=== PATIENT | male | born 1990 | race African-American/Black ===

== ENCOUNTER 2016-09-23 08:31 | Inpatient (IN) | payer MEDICAID ==
[~2016-09-23] VITALS: Ht 182.9 cm; Wt 80.2 kg
[2016-09-23] MEDS ORDERED: NS 500 ML IV ONE (10:30)
[2016-09-23] MEDS ORDERED: IPRATROPIUM 0.5MG/ALBUTEROL 2.5MG INH SOL UD 3ML (DUONEB)(J7620) NEB ONE (10:30)
[2016-09-23] MEDS ORDERED: ASPIRIN 81 MG CHEW TABLET PO ONE (10:30)
[2016-09-23] MEDS ORDERED: methylPREDNISolone INJ 125 MG/2 ML VIAL (J2930) IV ONE (10:30)
[2016-09-23 10:51] LABS: ALBUMIN 1.9 GM/DL (3.2-5.2); ALBUMIN/GLOBULIN RATIO 0.24 (1.00-1.93); ALKALINE PHOSPHATASE 120 U/L (45-117); ALT/SGPT 13 U/L (12-78); ANION GAP 10 MEQ/L (8-16); AST/SGOT 14 U/L (15-37); BILIRUBIN,DIRECT 0.1 MG/DL (0.0-0.2); BILIRUBIN,TOTAL 0.3 MG/DL (0.2-1.0); BLOOD UREA NITROGEN 8 MG/DL (7-18); CARBON DIOXIDE LEVEL 27 MEQ/L (21-32); CHLORIDE LEVEL 89 MEQ/L (98-107); CREATININE FOR GFR 1.11 MG/DL (0.70-1.30); GLOMERULAR FILTRATION RATE > 60.0 (>60); POTASSIUM SERUM 4.2 MEQ/L (3.5-5.1); SODIUM LEVEL 126 MEQ/L (136-145); TOTAL PROTEIN 9.7 GM/DL (6.4-8.2)
--- NOTE | 2016-09-23 10:51 | REP ---
Clinical: Dyspnea and cough. Comparison: 06/15/2016. Findings: Dextrocardia again noted. Left lower lobe infiltrate suggested along with possible early right lower lobe atelectasis. No definite effusion. No pneumothorax. Skeletal structures intact. Impression: Dextrocardia Suspected left lower lobe infiltrate and possible early right atelectasis. Signed by Shar Mckenna MD 09/23/2016 10:43 A
[2016-09-23 10:54] LABS: GLUCOSE, FASTING 469 MG/DL (70-105)
[2016-09-23 10:56] LABS: MEAN CORPUSCULAR HGB CONC 32.1 g/dl (32.0-36.5); MEAN CORPUSCULAR VOLUME 90.4 fl (80.0-96.0); PLATELET COUNT, AUTOMATED 432 k/mm3 (150-450); RED CELL DISTRIBUTION WIDTH 12.9 % (11.5-14.5); WHITE BLOOD COUNT 17.5 K/mm3 (4.0-10.0)
[2016-09-23] MEDS ORDERED: ISOVUE-370 76% 100ML VIAL (Q9967) As Ordered ONE (11:10)
[2016-09-23 11:27] LABS: BANDS 3 % (< 11); EOSINOPHILS 2 % (0-5)
[2016-09-23 11:28] LABS: ANISOCYTOSIS 1+
[2016-09-23] MEDS ORDERED: HumuLIN R (REGULAR) INSULIN (NovoLIN R) **100U/ML** PER UNIT IV ONE (11:45)
[2016-09-23] MEDS ORDERED: NS 1,000 ML IV ONE ×3 (11:45→20:30)
--- NOTE | 2016-09-23 11:46 | REP ---
Clinical: Chest pain and dyspnea. Technique: Axial contrast enhanced images from the thoracic inlet to the upper abdomen using 100 ml Isovue 370 intravenous contrast material with multiplanar re-formations. Findings: The patient demonstrates dextrocardia with situs inversus totalis. No obvious pulmonary embolus is appreciated. The thoracic aorta is without aneurysm or dissection. Heart and pericardium are grossly normal. There is evidence for moderate to large left lower lobe consolidation with air bronchograms and small effusion as well as scattered left middle lobe, right upper lobe and right lower lobe consolidations with significant mediastinal and left hilar adenopathy. Limited evaluation of the upper abdomen demonstrates left-sided liver and right-sided stomach and spleen again consistent with situs inversus totalis. Normal bilateral adrenal glands noted. Impression: 1. Dextrocardia and situs inversus totalis. 2. Multi focal infiltrates with small left pleural effusion and reactive adenopathy as detailed above. Follow-up to resolution recommended. 3. No evidence for pulmonary embolus or thoracic aortic aneurysm/dissection. Signed by Shar Mckenna MD 09/23/2016 11:37 A
[2016-09-23] MEDS ORDERED: ONDANSETRON 4MG/2ML VIAL (J2405) IV PRN (15:45)
[2016-09-23] MEDS ORDERED: IPRATROPIUM 0.5MG/ALBUTEROL 2.5MG INH SOL UD 3ML (DUONEB)(J7620) NEB PRN (15:45)
[2016-09-23] MEDS ORDERED: GLUCOSE 4 GM CHEW TABLET PO PRN (15:45)
[2016-09-23] MEDS ORDERED: GLUCAGON FOR INJ 1 MG VIAL (J1610) SC PRN (15:45)
[2016-09-23] MEDS ORDERED: DEXTROSE 50% 50 ML SYRINGE IV PRN (15:45)
[2016-09-23] MEDS ORDERED: ACETAMINOPHEN TAB 650MG DOSE (2X325MG) PO PRN (15:45)
[2016-09-23] MEDS ORDERED: NS 1,000 ML IV SCH (16:00)
--- NOTE | 2016-09-23 16:22 | HPEPDOC ---
General Date of Admission Sep 23, 2016 at 15:36 Chief Complaint The patient is a 26-year-old male admitted with a reason for visit of Shortness Of Breath. History of Present Illness 26-year-old male with past medical history of asthma, Type II diabetes mellitus currently off all medication, dextrocardia, and situs inversus totalis presented to ER with a chief complaint of worsening shortness of breath, and cough productive of yellowish sputum over the last 2 weeks. The patient states that he has not followed up with a primary care physician for the past 2-3 years. However, the patient states that he occasionally gets shortness of breath and coughing like this, most recently back in May 2016 when he was incarcerated in [facility]. At that time, the patient states that he was started on antibiotics and his symptoms improved. At this time, the patient states that he has been taking kxcw-rel-repxivo cough suppressants at home, however his shortness of breath has not improved. She does report a remote history of asthma as a child, but states that he has not used any kind of nebulizer inhaler therapy since. He denies following up with any employee communications manager since he was a child. He denies any acute complaints of fevers, chills, lightheaded, dizziness, palpitations, abdominal pain, or any nausea/vomiting/ diarrhea. In the ER, a CTA of the chest was done which revealed dextrocardia, and situs inversus totalis with multifocal infiltrates with small left pleural effusion and reactive adenopathy noted. The patient received a dose of antibiotics in the ER, and states that he is feeling better. The patient was also noted to have a white blood cell count of 17.5, and an elevated blood sugar level of 400+ . The patient will be admitted under the service of Dr. Alvarado for further evaluation and management. Home Medications No Active Prescriptions or Reported Meds Allergies Coded Allergies: No Known Allergies (Unverified , 09/23/16) Past Medical History Medical History As noted in HPI. Surgical History Surgical pinning of right ankle, and surgical plate placement in the left ankle following trauma. Family History Multiple members of his family with history of diabetes mellitus. Social History * Smoker: other (patient states that he smokes one pack of cigarettes a week for the past 10+ years) Alcohol: Denies Drugs: denies Recent Travel/Sick Contacts: Denies: Recent sick contacts, Recent travel Currently unemployed, able to perform activities of daily living independently. Review of Symptoms Other systems 10 point review of systems negative unless otherwise specified in the HPI. Physical Examination General Exam: Positive: Alert, Cooperative, No Acute Distress ENT Exam: Positive: Atraumatic, Mucous membr. moist/pink Neck Exam: Negative: JVD Chest Exam: Positive: Diminished, Rhonchi, Negative: Rales, Wheezing Heart Exam: Positive: Normal S1, Normal S2, Rate Normal Telemetry: Positive: Sinus Abdomen Exam: Positive: Soft, Negative: Tenderness Extremity Exam: Negative: Swelling, Tenderness Vital Signs As noted in EMR Laboratory Data Labs 24H Laboratory Tests 2 09/23/16 09:22: Aspartate Amino Transf (AST/SGOT) 14L, Alanine Aminotransferase (ALT/SGPT) 13, Alkaline Phosphatase 120H, Total Bilirubin 0.3, Direct Bilirubin 0.1, Albumin 1.9L, Albumin/Globulin Ratio 0.24L, Anion Gap 10, Anisocytosis 1+, Atypical Lymphocytes 1, B-Type Natriuretic Peptide 11.7, Band Neutrophils 3, White Blood Count 17.5H, Red Blood Count 3.91L, Hemoglobin 11.3L, Hematocrit 35.3L, Mean Corpuscular Volume 90.4, Mean Corpuscular Hemoglobin 29.0, Mean Corpuscular Hemoglobin Concent 32.1, Red Cell Distribution Width 12.9, Platelet Count 432, Neutrophils (%) (Auto) , Lymphocytes (%) (Auto) , Monocytes (%) (Auto) , Eosinophils (%) (Auto) , Basophils (%) (Auto) , Neutrophils # (Auto) , Lymphocytes # (Auto) , Monocytes # (Auto) , Eosinophils # (Auto) , Basophils # ( Auto) , Calcium Level 9.0, Eosinophils (Manual) 2, Glomerular Filtration Rate > 60.0, Large Unclassified Cells # , Large Unclassified Cells % , Lymphocytes ( Manual) 12L, Monocytes (Manual) 4, Neutrophils 78H, Platelet Estimate NORMAL, Total Protein 9.7H 09/23/16 10:35: Lactic Acid Level 0.9 09/23/16 12:49: Bedside Glucose (Misc Panel) 386H 09/23/16 14:19: Bedside Glucose (Misc Panel) 378H CBC/BMP Laboratory Tests 09/23/16 09:22 Red Blood Count 3.91 L, Mean Corpuscular Volume 90.4, Mean Corpuscular Hemoglobin 29.0, Mean Corpuscular Hemoglobin Concent 32.1, Red Cell Distribution Width 12.9, Neutrophils (%) (Auto) , Lymphocytes (%) (Auto) , Monocytes (%) (Auto) , Eosinophils (%) (Auto) , Basophils (%) (Auto) , Neutrophils # (Auto) , Lymphocytes # (Auto) , Monocytes # (Auto) , Eosinophils # (Auto) , Basophils # (Auto) Microbiology Microbiology 09/23/16 Blood Culture, Received Pending 09/23/16 Influenza Virus Type A Antigen - Final, Complete 09/23/16 Influenza Virus Type B Antigen - Final, Complete Plan / VTE VTE Prophylaxis Ordered?: Yes Plan Plan Shortness of breath, productive cough secondary to community acquired pneumonia We will admit the patient to med/surg unit CTA of the chest notable for dextrocardia and situs inversus totalis, with multifocal infiltrates and reactive adenopathy Blood cultures, sputum cultures, and respiratory panel, influenza panel ordered Patient started on Rocephin and azithromycin Albuterol, nebulizer treatment, incentive spirometry, and Acapella ordered Given the patient's underlying history of dextrocardia, situs inversus totalis and recurrent presentation of shortness of breath with productive cough I do wonder whether the patient has underlying primary ciliary dyskinesia leading to the recurrent sequelae. If the patient's symptoms do not resolve with antibiotics as noted above, would consider pulmonary consultation. Otherwise, the patient should follow-up with pulmonary as an outpatient once a PCP is established for him, and have PFT studies done. We will continue to monitor the patient History of diabetes mellitus Patient with elevated level of glucose here, 400+ Did receive Solumedrol 125mg in the ER, which may be contributing to elevated glucose levels Patient states that he he was diagnosed as a type II diabetic at the age of 14 when he weighed nearly 400 pounds However, he subsequently lost a significant amount of weight from the age of 14- 18, and has been off all medication We will check a hemoglobin A1c here Will check C-Peptide levels, Islet Cell Antibodies, and Insulin Antibodies to assess for possible underlying Type 1 DM Insulin sliding scale Leukocytosis Likely secondary to #1 White blood cell count noted to be 17.5 K Patient has been afebrile, hemodynamically stable here Blood cultures, sputum cultures, respiratory panel ordered Empiric coverage with Rocephin and azithromycin Continue to monitor CBC The patient will need to be established with a primary care physician in the area DVT prophylaxis-Lovenox subcutaneous The patient will be admitted under the service of Dr. Alvarado, who will begin to follow the patient on 09/24. KAROLYN DEL CID MD Sep 23, 2016 16:22
[2016-09-23 16:40] LABS: CHOLESTEROL LEVEL 127 MG/DL (<200); TRIGLYCERIDES LEVEL 127 MG/DL (<150)
[2016-09-23] MEDS ORDERED: AZITHROMYCIN INJ 500 MG, VIAL MATE ADAPTER 1 EACH in D5W 250 ML IV SCH (17:00)
[2016-09-23] MEDS ORDERED: HumaLOG INSULIN (NovoLOG) PER UNIT SC SCH ×2 (17:30→21:00)
[2016-09-23 18:00] VITALS: BP 137/84
[2016-09-23] MEDS: IPRATROPIUM 0.5MG/ALBUTEROL 2.5MG INH SOL UD 3ML (DUONEB)(J7620) NEB SCH (19:39)
[2016-09-23] MEDS ORDERED: HumaLOG INSULIN (NovoLOG) PER UNIT SC ONE (20:15)
[2016-09-23] MEDS: cefTRIAXone SOD 1 GM in D5W MINI-BAG PLUS 50 ML IV SCH (20:35)
[2016-09-23] MEDS ORDERED: LEVEMIR (INSULIN DETEMIR) 1 UNITS/0.01ML SC SCH (21:00)
[2016-09-23 22:00] VITALS: BP 127/78
[2016-09-24] MEDS ORDERED: INSULIN HUMAN REGULAR 100 UNITS in NS 99 ML IV SCH ×2
[2016-09-24 00:08] VITALS: BP 125/83
[2016-09-24 00:50] LABS: MEAN CORPUSCULAR HEMOGLOBIN 29.5 pg (27.0-33.0); MEAN CORPUSCULAR VOLUME 89.5 fl (80.0-96.0); RED CELL DISTRIBUTION WIDTH 12.8 % (11.5-14.5); WHITE BLOOD COUNT 13.5 K/mm3 (4.0-10.0)
[2016-09-24 01:04] LABS: ANION GAP 10 MEQ/L (8-16); BLOOD UREA NITROGEN 19 MG/DL (7-18); CALCIUM LEVEL 8.3 MG/DL (8.5-10.1); CARBON DIOXIDE LEVEL 23 MEQ/L (21-32); CHLORIDE LEVEL 93 MEQ/L (98-107); CREATININE FOR GFR 1.11 MG/DL (0.70-1.30); GLOMERULAR FILTRATION RATE > 60.0 (>60); MAGNESIUM LEVEL 2.2 MG/DL (1.8-2.4); POTASSIUM SERUM 4.5 MEQ/L (3.5-5.1); SODIUM LEVEL 126 MEQ/L (136-145)
[2016-09-24 01:06] LABS: GLUCOSE, FASTING 606 MG/DL (70-105)
[2016-09-24] MEDS: INSULIN IV RATE CHANGE DOCUMENTATION ML/HR XX SCH ×5 (01:08→07:01)
[2016-09-24] MEDS: IPRATROPIUM 0.5MG/ALBUTEROL 2.5MG INH SOL UD 3ML (DUONEB)(J7620) NEB SCH ×2 (01:25→07:27)
[2016-09-24] MEDS: NS 1,000 ML IV SCH ×2 (02:38→08:30)
[2016-09-24 04:00] VITALS: BP 131/89
[2016-09-24 04:58] LABS: MEAN CORPUSCULAR HGB CONC 32.8 g/dl (32.0-36.5); MEAN CORPUSCULAR VOLUME 88.4 fl (80.0-96.0); RED CELL DISTRIBUTION WIDTH 12.8 % (11.5-14.5); WHITE BLOOD COUNT 12.7 K/mm3 (4.0-10.0)
[2016-09-24 05:10] LABS: ANION GAP 9 MEQ/L (8-16); BLOOD UREA NITROGEN 17 MG/DL (7-18); CALCIUM LEVEL 7.4 MG/DL (8.5-10.1); CARBON DIOXIDE LEVEL 24 MEQ/L (21-32); CHLORIDE LEVEL 99 MEQ/L (98-107); CREATININE FOR GFR 0.84 MG/DL (0.70-1.30); GLOMERULAR FILTRATION RATE > 60.0 (>60); GLUCOSE, FASTING 368 MG/DL (70-105); MAGNESIUM LEVEL 2.1 MG/DL (1.8-2.4); POTASSIUM SERUM 4.2 MEQ/L (3.5-5.1); SODIUM LEVEL 132 MEQ/L (136-145)
[2016-09-24] MEDS: cefTRIAXone SOD 1 GM in D5W MINI-BAG PLUS 50 ML IV SCH (06:09)
[2016-09-24 08:00] VITALS: BP 127/72
[2016-09-24] MEDS ORDERED: LEVEMIR (INSULIN DETEMIR) 1 UNITS/0.01ML SC ONE (08:00)
[2016-09-24] MEDS: ENOXAPARIN 40 MG/0.4 ML SYRINGE (J1650) SC SCH ×2 (08:23→08:24)
[2016-09-24] MEDS ORDERED: LEVA750T PO (09:07)
[2016-09-24] MEDS ORDERED: INSUDET SC (09:07)
[2016-09-24] MEDS ORDERED: ASPI1TAB PO (09:08)
--- NOTE | 2016-09-24 09:26 | ECGEPIP ---
Stationary ECG Study [facility] - ED Test Date: 2016-09-23 Pat Name: HOLLIS HIGGINS Department: Room: - Gender: M Certified Caregiver: JT : 1990 Requested By: ELROY Drake Order Number: [id number] Reading MD: Corinne Alcantara Measurements Intervals [place] Rate: 109 P: 101 LA: 145 QRS: 173 QRSD: 94 T: 148 QT: 326 QTc: 440 Interpretive Statements SINUS TACHYCARDIA ARM LEADS REVERSED ABNORMAL RHYTHM ECG NO PRIOR FOR COMPARISON Electronically Signed On 09-24-2016 9:25:52 EDT by Corinne Alcantara
[2016-09-24] MEDS ORDERED: LevoFLOXacin 750 MG TABLET PO ONE (10:00)
--- NOTE | 2016-09-24 15:31 | DS.PDOC ---
Discharge Summary General Date of Admission Sep 23, 2016 at 15:36 Date of Discharge Sep 24, 2016 at 11:05 Primary Care Physician: TANIA FLORES DO Attending Physician: ADILENE RIBEIRO MD Discharge Summary PROCEDURES PERFORMED DURING STAY: None ADMITTING DIAGNOSES: 1. Shortness of breath 2. Diabetes mellitus 3. Leukocytosis DISCHARGE DIAGNOSES: 1. Shortness of breath 2. Lung infiltrate 3. Hyperglycemia COMPLICATIONS/CHIEF COMPLAINT: Shortness Of Breath. HISTORY OF PRESENT ILLNESS: Mr. Mead is a 26-year-old -Italian male with past medical history of asthma, Type II diabetes mellitus currently off all medication, dextrocardia, and situs inversus totalis who presented to [facility]'s emergency Department with worsening shortness of breath and cough productive of yellowish sputum over the last 2 weeks. The patient states that he has not followed up with a primary care physician for the past 2-3 years. However, the patient states that he occasionally gets shortness of breath and coughing like this, most recently back in May 2016 when he was incarcerated in [facility]. At that time, the patient states that he was started on antibiotics and his symptoms improved. At this time, the patient states that he has been taking luju-qfl-rqoscyg cough suppressants at home, however his shortness of breath has not improved. He does report a remote history of asthma as a child, but states that he has not used any kind of nebulizer inhaler therapy since. 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 He denies any acute complaints of fevers, chills, lightheaded, dizziness, palpitations, abdominal pain, or any nausea/ vomiting/diarrhea. CT angiogram was performed in the emergency department which revealed dextrocardia and situs inversus totalis with multifocal infiltrates with small left pleural effusion and reactive adenopathy noted. The patient received a dose of antibiotics and steroids in the ED and states that he is feeling better. The patient was also noted to have a white blood cell count of 17.5, and an elevated blood sugar level of 400+. Hospitalist service was subsequently consulted and patient was admitted for further medical management. HOSPITAL COURSE: Patient was admitted to the ICU, and insulin drip was started, antibiotics were continued, and intravenous fluid resuscitation was provided with normal saline at 125 miles per hour. The workup for patient's diabetes included C-peptide levels, insulin antibodies, and islet cell antibodies. Patient also received Levemir 25 units and was subsequently transitioned to Levemir 10 units twice a day. Patient did not have an anion gap acidosis. His blood glucose did improve. Influenza was negative, respiratory panel was negative, sputum culture was positive for gram-positive cocci in pairs. Patient stated that he needed to be discharged secondary to the possibility of inducing housing. Patient was stable and in no acute distress. Patient reports that he is familiar with how to use a glucometer, perform fingersticks, and give himself insulin. Have provided prescriptions for glucometer as well as test strips. Levaquin was provided for patient's pneumonia. Recommended that patient follow-up at the resident clinic. DISCHARGE MEDICATIONS: Please see below. ALLERGIES: Please see below. PHYSICAL EXAMINATION ON DISCHARGE: VITAL SIGNS: Please see below. GENERAL: -Italian male resting comfortably in the hospital bed upon evaluation this morning, appears stated age, in no apparent distress HEENT: Atraumatic, normocephalic, PERRL, EOMI, oral mucosa appears pink and moist, nasal septum appears midline, nares are patent NECK: Supple, soft, trachea midline, no lymphadenopathy appreciated CARDIOVASCULAR EXAMINATION: Dextrocardia, regular rate and rhythm, normal S1 and S2, no murmur, rub, click RESPIRATORY EXAMINATION: Diminished lung sounds and crackles noted on the left, no wheeze ABDOMINAL EXAMINATION: Flat, soft, nontender, nondistended, bowel sounds appreciated all 4 quadrants EXTREMITIES: Peripheral pulses appreciated bilaterally in upper and lower extremities, symmetrical, equal, +2/4, no edema, no lesions or rashes SKIN:, No lesions or rashes NEUROLOGICAL EXAMINATION: Cranial nerves II through XII appear grossly intact, moving all four extremities appropriately PSYCHIATRIC EXAMINATION: Mood and affect appear appropriate LABORATORY DATA: Please see below. IMAGING: Chest x-ray IMPRESSION: Dextrocardia Suspected left lower lobe infiltrate and possible early right atelectasis. CT angiogram of the chest IMPRESSION: 1. Dextrocardia and situs inversus totalis. 2. Multi focal infiltrates with small left pleural effusion and reactive adenopathy as detailed above. Follow-up to resolution recommended. 3. No evidence for pulmonary embolus or thoracic aortic aneurysm/dissection. PROGNOSIS: Stable ACTIVITY: As tolerated DIET: Consistent carbohydrate DISCHARGE PLAN: Managing health at home, improved health and wellness DISPOSITION: 01 Home, Self-Care. DISCHARGE INSTRUCTIONS: 1. Appointment with Dr. Flores on 10/03/2016 at 7:45 AM ITEMS TO FOLLOWUP ON ON OUTPATIENT: 1. Consistent carbohydrate diabetic diet 2. Follow-up appointment with Dr. Flores on 10/03/2016 at 7:45 AM 3. Will need to check for proteinuria 4. Ophthalmology referral to evaluate for retinopathy DISCHARGE CONDITION: Stable TIME SPENT ON DISCHARGE: Greater than 30 minutes. Vital Signs/I&Os Vital Signs Date Time Temp Pulse Resp B/P Pulse Ox O2 Delivery O2 Flow Rate FiO2 09/24/16 08:00 99.1 86 16 127/72 95 Room Air I&O- Last 24 Hours up to 6 AM 09/24/16 06:00 Intake Total 5145 ml Output Total 2575 ml Balance 2570 ml Laboratory Data Labs 24H Laboratory Tests 2 09/23/16 18:50: Bedside Glucose (Misc Panel) 592*H 09/23/16 19:09: Bedside Glucose Confirm (Misc) 653*H 09/23/16 20:31: Bedside Glucose (Misc Panel) > 600*H 09/23/16 22:30: Bedside Glucose (Misc Panel) > 600*H 09/23/16 22:40: Bedside Glucose (Misc Panel) > 600*H 09/23/16 22:46: Bedside Glucose Confirm (Misc) 808*H 09/24/16 00:06: Bedside Glucose (Misc Panel) > 600*H 09/24/16 00:32: Bedside Glucose Confirm (Misc) 606*H, Anion Gap 10, Blood Urea Nitrogen 19#H, Creatinine 1.11, Sodium Level 126L, Potassium Level 4.5, Chloride Level 93L, Carbon Dioxide Level 23, Calcium Level 8.3L, Glomerular Filtration Rate > 60.0, Magnesium Level 2.2 09/24/16 03:09: Bedside Glucose (Misc Panel) 405H 09/24/16 04:10: Bedside Glucose (Misc Panel) 376H, Anion Gap 9, Blood Urea Nitrogen 17, Creatinine 0.84, Sodium Level 132L, Potassium Level 4.2, Chloride Level 99, Carbon Dioxide Level 24, Calcium Level 7.4L, Glomerular Filtration Rate > 60.0, Magnesium Level 2.1 09/24/16 04:11: 09/24/16 06:11: Bedside Glucose (Misc Panel) 276H 09/24/16 06:59: Bedside Glucose (Misc Panel) 268H CBC/BMP Laboratory Tests 09/24/16 00:32 Calcium Level 8.3 L, Red Blood Count 3.54 L, Mean Corpuscular Volume 89.5, Mean Corpuscular Hemoglobin 29.5, Mean Corpuscular Hemoglobin Concent 33.0, Red Cell Distribution Width 12.8 09/24/16 04:10 Calcium Level 7.4 L 09/24/16 04:11 Red Blood Count 3.31 L, Mean Corpuscular Volume 88.4, Mean Corpuscular Hemoglobin 29.0, Mean Corpuscular Hemoglobin Concent 32.8, Red Cell Distribution Width 12.8 FSBS Laboratory Tests Test 09/23/16 18:50 09/23/16 20:31 09/23/16 22:30 09/23/16 22:40 Range/Units Bedside Glucose (Misc Panel) 592 > 600 > 600 > 600 70-105 MG/DL Test 09/24/16 00:06 09/24/16 03:09 09/24/16 04:10 09/24/16 06:11 Range/Units Bedside Glucose (Misc Panel) > 600 405 376 276 70-105 MG/DL Test 09/24/16 06:59 Range/Units Bedside Glucose (Misc Panel) 268 70-105 MG/DL Microbiology Microbiology 09/23/16 Blood Culture, Received Pending 09/23/16 Blood Culture, Received Pending 09/23/16 Gram Stain - Final, Resulted 09/23/16 Sputum Culture, Resulted Pending 09/23/16 Respiratory Virus Panel (PCR) (ALESHA) - Final, Complete 09/23/16 Influenza Virus Type A Antigen - Final, Complete 09/23/16 Influenza Virus Type B Antigen - Final, Complete Discharge Medications Scheduled Aspirin (Aspirin 81) 81 Mg Tab 81 MG PO DAILY Insulin Detemir (Levemir) 1 Units/0.01 Ml Susp 1 UNITS SC QAM 20 units sq qam hold for glucose<150 Levofloxacin Hemihydrate (Levaquin) 750 Mg Tab 750 MG PO DAILY Allergies Coded Allergies: No Known Allergies (Unverified , 09/23/16) AUNDREA BURT Sep 24, 2016 15:31
[2016-09-24] MEDS ORDERED: LEVEMIR (INSULIN DETEMIR) 1 UNITS/0.01ML SC SCH (21:00)
[2016-09-26 00:06] LABS: ISLET CELL ANTIBODIES Negative (Neg:<1:1)
[2016-09-29 00:06] LABS: INSULIN ANTIBODY <5.0 uU/mL (.)
== END 2016-09-24 11:05 | disposition home or self-care (01) | DRG 139 ==
LOC: M ED 10:55 → M ED INP 15:36 → M MSPAV 18:43 → M ICU 23:59
PROVIDERS: ADMIT Internal Medicine; ATTEND General Practice
DX: J18.9 Pneumonia, unspecified organism (principal); E11.65 Type 2 diabetes mellitus with hyperglycemia; J45.909 Unspecified asthma, uncomplicated; F17.210 Nicotine dependence, cigarettes, uncomplicated; Z79.899 Other long term (current) drug therapy

== ENCOUNTER → 2017-01-31 | Outpatient (CLI) | payer MEDICAID ==
[~2017-01-31] MED LIST: ASPI1TAB PO; INSUDET SC; LEVA750T7 PO
== END ==
LOC: M OUTALCOH 07:41
PROVIDERS: ATTEND Psychiatry & Neurology Psychiatry
DX: F12.20 Cannabis dependence, uncomplicated (principal)

== ENCOUNTER → 2017-02-28 | Outpatient (RCR) | payer MEDICAID | LOC: M OUTALCOH 02-07 16:00 | PROVIDERS: ATTEND Psychiatry & Neurology Psychiatry | DX: Z13.9 Encounter for screening, unspecified (principal); F12.20 Cannabis dependence, uncomplicated; F17.200 Nicotine dependence, unspecified, uncomplicated ==

== ENCOUNTER 2018-05-26 05:26 | Emergency (ER) | payer MEDICAID, OTHER ==
[2018-05-26 15:33] LABS: BEDSIDE GLUCOSE 358 MG/DL (70-105)
== END 2018-05-26 06:58 | disposition left against medical advice (07) ==
LOC: M ED 05:26
DX: Z53.29 Procedure and treatment not carried out because of patient's decision for other reasons (principal)

== ENCOUNTER 2018-09-01 14:48 | Emergency (ER) | payer MEDICAID, OTHER ==
[~2018-09-01] VITALS: Ht 182.9 cm; Wt 88.6 kg
[2018-09-01] MEDS ORDERED: HumuLIN R (REGULAR) INSULIN (NovoLIN R) **100U/ML** PER UNIT SC ONE (16:00)
[2018-09-01] MEDS ORDERED: NS 1,000 ML IV ONE ×2 (16:00)
[2018-09-01 16:14] LABS: BASO # 0.1 10^3/uL (0.0-0.2); BASO % 1.1 % (0.0-1.0); EOS # 0.1 10^3/uL (0.0-0.50); HEMATOCRIT 30.3 % (42.0-52.0); HEMOGLOBIN 10.8 g/dl (13.5-17.5); LYMPH # 2.1 10^3/uL (1.5-6.5); LYMPH % 29.5 % (24.0-44.0); MEAN CORPUSCULAR HEMOGLOBIN 31.4 pg (27.0-33.0); MEAN CORPUSCULAR HGB CONC 35.6 g/dl (32.0-36.5); MEAN CORPUSCULAR VOLUME 88.1 fl (80.0-96.0); MONO # 0.4 10^3/uL (0.0-0.8); MONO % 5.7 % (0.0-5.0); NEUTROPHILS # 4.5 10^3/uL (1.8-7.7); NEUTROPHILS % 62.6 % (36.0-66.0); PLATELET COUNT, AUTOMATED 211 10^3/uL (150-450); RED BLOOD COUNT 3.44 10^6/uL (4.30-6.10); WHITE BLOOD COUNT 7.2 10^3/uL (4.0-10.0)
[2018-09-01 16:36] LABS: HEMOGLOBIN A1c 14.1 %
[2018-09-01 16:36] LABS: ABG BASE EXCESS 0.9 (-2.0-2.0); ABG HCO3 25.2 MEQ/L (22.0-26.0); ABG O2 SATURATION 97.5 % (95.0-99.0); ABG PARTIAL PRESSURE CO2 39.2 mmHg (35.0-45.0); ABG PARTIAL PRESSURE O2 105.5 mmHg (75.0-100.0); ABG STANDARD HCO3 25.3 MEQ/L (22.0-26.0); ABG TOTAL CO2 26.4 MEQ/L (22.0-29.0); ABG pH (ARTERIAL) 7.426 UNITS (7.350-7.450)
[2018-09-01 16:46] LABS: AMYLASE 101 U/L (25-115); BLOOD UREA NITROGEN 12 MG/DL (7-18); CALCIUM LEVEL 7.9 MG/DL (8.5-10.1); CARBON DIOXIDE LEVEL 29 MEQ/L (21-32); CHLORIDE LEVEL 103 MEQ/L (98-107); CREATININE FOR GFR 1.45 MG/DL (0.70-1.30); GLOMERULAR FILTRATION RATE > 60.0 (>60); GLUCOSE, FASTING 388 MG/DL (70-100); LIPASE 69 U/L (73-393); POTASSIUM SERUM 3.9 MEQ/L (3.5-5.1); SODIUM LEVEL 139 MEQ/L (136-145)
[2018-09-01 18:12] VITALS: BP 160/101
[2018-09-01] MEDS ORDERED: LANTINJ4 SC (18:13)
[2018-09-01] MEDS ORDERED: METF-700 PO (18:13)
[2018-09-01] MEDS ORDERED: MACR100C43 PO (18:13)
== END 2018-09-01 18:27 | disposition home or self-care (01) ==
LOC: M ED 14:48
DX: E10.65 Type 1 diabetes mellitus with hyperglycemia (principal); N39.0 Urinary tract infection, site not specified; R63.1 Polydipsia; R35.8 Other polyuria; I10 Essential (primary) hypertension; J45.909 Unspecified asthma, uncomplicated; Q89.3 Situs inversus; F17.200 Nicotine dependence, unspecified, uncomplicated

== ENCOUNTER 2019-10-27 10:46 | Inpatient (IN) | payer MEDICAID, OTHER, SELFPAY ==
[~2019-10-27] VITALS: Ht 180.3 cm; Wt 103.6 kg
[~2019-10-27 10:46] MED LIST changes: -ASPI1TAB PO; +ASPI81TA26 PO; +LANTINJ4 SC; +MACR100C43 PO; +METF-700 PO
[2019-10-27] MEDS ORDERED: HUMA100I3 SC (11:00)
[2019-10-27] MEDS ORDERED: NS 1,000 ML IV ONE (11:15)
[2019-10-27 11:29] LABS: VENOUS BASE EXCESS -3.1 (-2.0-2.0); VENOUS HCO3 22.4 MEQ/L (23.0-27.0); VENOUS PARTIAL PRESSURE CO2 41.8 mmHg (38.0-50.0); VENOUS PARTIAL PRESSURE O2 63.1 mmHg (30.0-50.0); VENOUS PH 7.346 UNITS (7.330-7.430); VENOUS STANDARD HCO3 21.7 MEQ/L; VENOUS TOTAL CO2 23.6 MEQ/L (24.0-28.0)
[2019-10-27 11:36] LABS: BASO # 0.1 10^3/uL (0.0-0.2); BASO % 0.8 % (0.0-1.0); EOS # 0.1 10^3/uL (0.0-0.5); EOS % 0.6 % (0.0-3.0); HEMATOCRIT 26.8 % (42.0-52.0); HEMOGLOBIN 9.2 g/dl (13.5-17.5); LYMPH # 1.9 10^3/uL (1.5-5.0); MEAN CORPUSCULAR HEMOGLOBIN 30.2 pg (27.0-33.0); MEAN CORPUSCULAR HGB CONC 34.3 g/dl (32.0-36.5); MEAN CORPUSCULAR VOLUME 87.9 fl (80.0-96.0); MONO # 0.5 10^3/uL (0.0-0.8); MONO % 4.7 % (0.0-5.0); NEUTROPHILS # 7.4 10^3/uL (1.5-8.5); NEUTROPHILS % 74.6 % (36.0-66.0); PLATELET COUNT, AUTOMATED 298 10^3/uL (150-450); RED BLOOD COUNT 3.05 10^6/uL (4.30-6.10); WHITE BLOOD COUNT 9.9 10^3/uL (4.0-10.0)
[2019-10-27 12:01] LABS: OSMOLALITY SERUM 295 MOSM/KG (275-295)
[2019-10-27 12:18] LABS: ACETONE/KETONE 7.61 MG/DL (<2.81); ALBUMIN 2.1 GM/DL (3.2-5.2); ALT/SGPT 13 U/L (12-78); BILIRUBIN,DIRECT < 0.1 MG/DL (0.0-0.2); BILIRUBIN,TOTAL 0.1 MG/DL (0.2-1.0); BLOOD UREA NITROGEN 24 MG/DL (7-18); CALCIUM LEVEL 8.4 MG/DL (8.5-10.1); CARBON DIOXIDE LEVEL 24 MEQ/L (21-32); CHLORIDE LEVEL 97 MEQ/L (98-107); CK-MB VALUE MASS 2.5 NG/ML (<3.6); CPK CREATINE PHOSPHOKINASE 805 U/L (39-308); CREATININE FOR GFR 3.14 MG/DL (0.70-1.30); GLOMERULAR FILTRATION RATE 30.9 (>60); LIPASE 62 U/L (73-393); MB/CK RELATIVE INDEX 0.31 (< OR =4); POTASSIUM SERUM 3.7 MEQ/L (3.5-5.1); SODIUM LEVEL 130 MEQ/L (136-145); TOTAL PROTEIN 6.6 GM/DL (6.4-8.2); TROPONIN I < 0.02 NG/ML (< 0.10)
[2019-10-27 12:19] LABS: GLUCOSE, FASTING 443 MG/DL (70-100)
[2019-10-27] MEDS ORDERED: HumaLOG INSULIN (NovoLOG) PER UNIT SC STA (12:20)
--- NOTE | 2019-10-27 12:29 | REP ---
CHEST, SINGLE VIEW: Single view of the chest is performed. There is no acute infiltrate. The patient has situs inversus. The heart and aortic arch project on the right side of the chest. The liver is in the left upper quadrant. The mediastinal scan is unremarkable. The heart is not enlarged. The visualized osseous structures are unremarkable. IMPRESSION: No acute pulmonary disease. Situs inversus. Electronically Signed by Maurice Tellez MD 10/27/2019 01:04 P
[2019-10-27] MEDS ORDERED: NS 1,860 ML in IV 1 EA IV ONE (12:30)
[2019-10-27 13:21] LABS: HEMOGLOBIN A1c 13.4 %
--- NOTE | 2019-10-27 17:09 | REP ---
Clinical: Acute renal failure. Technique: Real time bowie scale and color Doppler evaluation using curved array transducer. Findings: Right kidney is normal in reniform shape measuring 11.3 x 5.7 x 6.6 cm (RI 0.62) and demonstrates increased echotexture along with mild hydronephrosis. No obvious renal calculi, cyst or mass lesion identified. Left kidney is normal in reniform shape measuring 12.3 x 6.7 x 7.8 cm (RI 0.70) and demonstrates increased echotexture along with mild hydronephrosis. No obvious renal calculi, cyst or mass lesion identified. Bladder appears normal and bilateral ureteral jets are identified. Impression: Increased renal echotexture suggesting underlying medical renal disease along with bilateral mild hydronephrosis. Electronically Signed by Shar Mckenna MD 10/27/2019 05:01 P
[2019-10-27] MEDS ORDERED: GLUCOSE 4GM CHEW TABLET PO PRN (18:00)
[2019-10-27] MEDS ORDERED: GLUCAGON INJ 1MG VIAL SC PRN (18:00)
[2019-10-27] MEDS ORDERED: ALBUTEROL 90 MCG/ACT 8GM HFA INHALER INH PRN (18:00)
[2019-10-27] MEDS ORDERED: DEXTROSE 50% 50 ML SYRINGE IV PRN (18:00)
[2019-10-27] MEDS ORDERED: amLODIPine 10 MG TAB PO ONE (18:15)
--- NOTE | 2019-10-27 18:32 | HPEPDOC ---
[facility] Medical History & Physical Date of Admission Oct 27, 2019 Date of Service: Oct 27, 2019 Attending Physician: JOHNATHON PETE MD History and Physical PRIMARY CARE PROVIDER: None ATTENDING: Dr. Pete CHIEF COMPLAINT: Elevated blood glucose HISTORY OF PRESENT ILLNESS: Patient is a 29 year old male presenting with chief complaint of elevated blood glucose. Patient was brought in by police when he asked to check a blood glucose and it came back in the 500s so EMS was called. He states he has been in his normal state of health and denies any complaints now or in the past couple days. He states at baseline he has poor PO intake having 1 meal a day with a little water, he does not regularly take his insulin and only takes it when he feels like his glucose is high. He uses short acting insulin he obtained on discharge from his incarceration in 2018 and attempts to follow a consistent carb diet at home to avoid taking the insulin. In the ED he was found to have elevated creatinine with unknown baseline, elevated glucose, with renal US showing mild bilateral hydronephrosis. He was given insulin and 3 liters of fluid with repeat creatinine of 2.8 and glucose of 143. PAST MEDICAL HISTORY: T1DM Hypertension Situs inversus suspicious for Kartagener's syndrome PAST SURGICAL HISTORY: Polyp removal bilateral ankle surgery SOCIAL HISTORY: denies alcohol use, 1PPD smoker, admits to daily marijuana use, denies any heroin, cocaine, or PCP use. Unemployed. Lives with girlfriend and child. FAMILY HISTORY: Family history of diabetes. ALLERGIES: Please see below. REVIEW OF SYSTEMS: GENERAL: Denies fevers, chills, recent unexpected weight change, night sweats, hemoptysis HEENT: Denies headache, dizziness, vision changes, hearing loss, sore throat CARDIOVASCULAR: Denies chest pain, palpitations, orthopnea RESPIRATORY: Denies shortness of breath, wheezing, cough GASTROINTESTINAL: denies nausea, vomiting, abdominal pain, constipation, diarrhea, bloody stool GENITOURINARY: Denies dysuria,urinary urgency, hematuria. MUSCULOSKELETAL: Denies muscle/joint pain, weakness, stiffness NEUROLOGICAL: Denies any numbness/tingling, focal weakness, or syncope HOME MEDICATIONS: Please see below. PHYSICAL EXAMINATION: Vitals: (see below) General: No acute distress, laying comfortably in bed. HEENT: Normocephalic, atraumatic. EOMI. No scleral icterus. Moist mucous membranes. No pharyngeal erythema or uvular deviation. Neck: No JVD, lymphadenopathy, or thyromegaly. Cardiac: RRR, Normal S1 and S2, No murmurs, gallops, rubs. Pulm: Clear to auscultation b/l. Symmetric thorax. end expiratory wheezes on exam, crackles, rhonchi Abd: Bowel Sounds present. Abdomen is soft, non-tender, non-distended. No guarding, rebound tenderness, or rigidity. No hepatosplenomegaly. No masses or eccymosis. Ext: No edema or cyanosis Neuro: No focal neuro deficits. LABORATORY DATA: See below. IMAGIN10/27/2019 CXR No acute pulmonary disease. Situs inversus. 10/27/2019 Renal US: Increased renal echotexture suggesting underlying medical renal disease along with bilateral mild hydronephrosis. MICROBIOLOGY: Please see below. ASSESSMENT/PLAN: #. Acute on suspected chronic renal failure - Likely of pre-renal etiology or secondary to diabetic nephropathy vs. hypertensive nephropathy. Will order FeNa, urine osmolarity to assess for intrinsic renal failure. For time being will gently hydrate patient overnight and recheck creatinine in AM. - Post-void residual from bladder scan showing >200ml, will insert colmenares rather than straight cath him Q8H and to monitor I/Os. #. Normocytic anemia -Iron studies, B12, folate #. T1DM -Starting patient on sliding scale insulin -Will await glucose trend until starting levemir. #. Asthma -Albuterol inhaler #. Hyponatremia -Likely 2/2 to poor PO intake #. Hypertension -Starting patient on 10 mg PO Amlodipine with holding parameters. Ok to give hydralazine if uncontrolled hypertension. Hold nephrotoxic agents. -DVT prophy: heparin, teds/seqs Attending attestation: I evaluated and examined the patient in person; I discussed the care with Resident in detail and agree with the plan above. Vital Signs Vital Signs Date Time Temp Pulse Resp B/P (MAP) Pulse Ox O2 Delivery O2 Flow Rate FiO2 10/27/19 16:15 87 17 157/83 (107) 99 Room Air 10/27/19 11:02 97.2 Laboratory Data Labs 24H Laboratory Tests 2 10/27/19 11:04: Bedside Glucose (Misc Panel) 453H 4/28/20 11:20: Immature Granulocyte % (Auto) 0.3, Neutrophils (%) (Auto) 74.6H, Lymphocytes (%) (Auto) 19.0L, Monocytes (%) (Auto) 4.7, Eosinophils (%) (Auto) 0.6, Basophils (%) (Auto) 0.8, Neutrophils # (Auto) 7.4, Lymphocytes # (Auto) 1.9, Monocytes # (Auto) 0.5, Eosinophils # (Auto) 0.1, Basophils # (Auto) 0.1, Nucleated Red Blood Cells % (auto) 0.0, Blood Gas Bicarbonate Standard 21.7, Venous Blood pH 7.346, Venous Blood Partial Pressure CO2 41.8, Venous Blood Partial Pressure O2 63.1H, Venous Blood Total Carbon Dioxide 23.6L, Venous Blood HCO3 22.4L, Venous Blood Oxygen Saturation 89.0H, Venous Blood Base Excess -3.1L, Anion Gap 9, Glomerular Filtration Rate 30.9L, Estimated Mean Plasma Glucose 338H, Hemoglobin A1c 13.4, Osmolality 295, Calcium Level 8.4L, Total Bilirubin 0.1L, Direct Bilirubin < 0.1, Aspartate Amino Transf (AST/SGOT) 20, Alanine Aminotransferase (ALT/SGPT) 13, Alkaline Phosphatase 121H, Total Creatine Kinase 805H, Creatine Kinase MB 2.5, Creatine Kinase MB Relative Index 0.31, Troponin I < 0.02, Total Protein 6.6, Albumin 2.1L, Albumin/Globulin Ratio 0.47L, Lipase 62L, B- Hydroxybutyrate 7.61H 10/27/19 12:20: Urine Color YELLOW, Urine Appearance HAZY, Urine pH 6.0, Urine Specific [place] 1.013, Urine Protein 3+H, Urine Glucose (UA) 3+H, Urine Ketones NEGATIVE, Urine Blood 1+H, Urine Nitrite NEGATIVE, Urine Bilirubin NEGATIVE, Urine Urobilinogen 0.2, Urine Leukocyte Esterase TRACEH, Urine WBC (Auto) 21H, Urine RBC (Auto) 3, Urine Hyaline Casts (Auto) 1, Urine Bacteria (Auto) 1+H, Urine Squamous Epithelial Cells 0, Urine Amorphous Sediment SMALLH, Urine Sperm (Auto) 10/27/19 14:44: Bedside Glucose (Misc Panel) 143H 10/27/19 15:33: POC Glucose (Misc Panel) 105, POC Sodium (Misc Panel) 140, POC Potassium (Misc Panel) 3.4L, POC Chloride (Misc Panel) 105, POC Total CO2 (Misc Panel) 21.0L, POC Blood Urea Nitrogen (Misc Panel 19, POC Ionized Calcium (Misc Panel) 4.8, POC Creatinine (Misc Panel) 2.8H, POC Hematocrit (Misc Panel) 22.0L CBC/BMP Laboratory Tests 10/27/19 11:20 Microbiology Microbiology 10/27/19 Urine Culture, Received Pending Home Medications Scheduled Insulin Lispro (Humalog) 100 Unit/1 Ml Cartridge, 1 DOSE SC ACHS PER SLIDING SCALE Allergies Coded Allergies: SEASONAL ALLERGIES (Verified Allergy, Unknown, 09/01/18) A-FIB/CHADSVASC A-FIB History Current/History of A-Fib/PAF?: No GME ATTESTATION GME ATTESTATION My faculty preceptor for this patient encounter was physically present during the encounter and was fully available. All aspects of the patient interview, examination, medical decision making process, and medical care plan development were reviewed and approved by the faculty preceptor. The faculty preceptor is aware and concurs with the plan as stated in the body of this note and will attest to such by his/her cosignature. DONNA SALDANA DO Oct 27, 2019 18:32 JOHNATHON PETE MD November 03, 2019 19:03
[2019-10-27] MEDS ORDERED: POTASSIUM CHLORIDE 10 MEQ SR TABLET PO ONE (18:45)
[2019-10-27 19:27] LABS: PERCENT SATURATION 27.3 % (19.7-50.0)
[2019-10-27] MEDS: HumaLOG INSULIN (NovoLOG) PER UNIT SC SCH ×2 (19:59→21:24)
[2019-10-27 20:22] LABS: OSMOLALITY URINE 288 MOSM/KG (500-800)
[2019-10-27 20:24] LABS: PROTEIN, URINE AUTO 2+ mg/dL (NEGATIVE)
[2019-10-27 20:43] LABS: CREATININE,RANDOM URINE 59.3 MG/DL; SODIUM,RANDOM URINE 71 MEQ/L
[2019-10-27 20:46] LABS: AMPHETAMINES URINE REFLEX NEGATIVE (NEGATIVE); BARBITURATES URINE REFLEX NEGATIVE (NEGATIVE); BENZODIAZEPINES URINE REFLEX NEGATIVE (NEGATIVE); COCAINE METABOLITE URINE REFLE NEGATIVE (NEGATIVE); METHADONE URINE REFLEX NEGATIVE (NEGATIVE); OPIATES URINE REFLEX NEGATIVE (NEGATIVE); PHENCYCLIDINE URINE REFLEX NEGATIVE (NEGATIVE)
[2019-10-27] MEDS: HEPARIN SOD (PORCINE) 5000UNITS/ML VIAL (J1644 PER 1000UNITS) SC SCH (21:24)
[2019-10-27] MEDS: NS 1,000 ML IV SCH (21:33)
[2019-10-27 21:47] LABS: CANNABINOIDS URINE REFLEX PENDING CONFIRMATION (NEGATIVE)
[2019-10-27 22:00] VITALS: BP 155/102
[2019-10-28] VITALS: BP 162/94
[2019-10-28] MEDS: HEPARIN SOD (PORCINE) 5000UNITS/ML VIAL (J1644 PER 1000UNITS) SC SCH ×3 (05:51→21:28)
[2019-10-28 06:00] VITALS: BP 164/106
[2019-10-28] MEDS ORDERED: **hydrALAZINE** 10 MG TAB PO ONE (06:30)
[2019-10-28 06:54] LABS: HEMATOCRIT 24.6 % (42.0-52.0); HEMOGLOBIN 8.6 g/dl (13.5-17.5); MEAN CORPUSCULAR HEMOGLOBIN 30.6 pg (27.0-33.0); MEAN CORPUSCULAR VOLUME 87.5 fl (80.0-96.0); PLATELET COUNT, AUTOMATED 276 10^3/uL (150-450); RED BLOOD COUNT 2.81 10^6/uL (4.30-6.10); WHITE BLOOD COUNT 10.6 10^3/uL (4.0-10.0)
[2019-10-28 07:39] LABS: CALCIUM LEVEL 8.1 MG/DL (8.5-10.1); CREATININE FOR GFR 2.01 MG/DL (0.70-1.30); GLOMERULAR FILTRATION RATE 51.7 (>60); POTASSIUM SERUM 3.3 MEQ/L (3.5-5.1)
[2019-10-28] MEDS: HumaLOG INSULIN (NovoLOG) PER UNIT SC SCH ×4 (08:24→20:02)
[2019-10-28] MEDS: NS 1,000 ML IV SCH ×3 (08:25→20:01)
[2019-10-28] MEDS: amLODIPine 10 MG TAB PO SCH (08:26)
[2019-10-28] MEDS ORDERED: lisinopriL 5 MG TAB PO ONE ×2 (09:15→18:15)
[2019-10-28 09:25] LABS: MAGNESIUM LEVEL 1.4 MG/DL (1.8-2.4); PHOSPHORUS LEVEL 2.8 MG/DL (2.5-4.9)
[2019-10-28] MEDS ORDERED: POTASSIUM CHLORIDE 10 MEQ SR TABLET PO ONE (10:00)
[2019-10-28] MEDS: FERROUS GLUCONATE 324 MG TAB PO SCH (10:45)
--- NOTE | 2019-10-28 11:33 | IPNPDOC ---
Text Note Date of Service The patient was seen on 10/28/19. NOTE SUBJECTIVE: Patient is a 29-year-old male who presented with chief complaint of elevated blood glucose found to have acute on suspected chronic renal failure and anemia. No acute events overnight. Patient has no complaints this morning he denies any fevers, chills, chest pain, difficulty breathing, abdominal pain, nausea, vomiting. He admits to intermittent bleeding from his gums as he has a history of drinking cough syrup in the past. Denies any family history of bleeding disorders. OBJECTIVE: PHYSICAL EXAM: Vitals: (see below) General: No acute distress, laying comfortably in bed. HEENT: Normocephalic, atraumatic. EOMI. No scleral icterus. Moist mucous membranes. No pharyngeal erythema or uvular deviation. Neck: No JVD, lymphadenopathy, or thyromegaly. Cardiac: RRR, Normal S1 and S2, No murmurs, gallops, rubs. Pulm: Clear to auscultation b/l. Symmetric thorax. No wheezing, crackles, rhonchi Abd: Bowel Sounds present. Abdomen is soft, non-tender, non-distended. No guarding, rebound tenderness, or rigidity. No hepatosplenomegaly. No masses or eccymosis. Ext: No edema or cyanosis Neuro: No focal neuro deficits LABORATORY DATA, MICROBIOLOGY: Please see below. IMAGING STUDIES: ASSESSMENT AND PLAN: #. Acute on suspected chronic renal failure -Creatinine trending down with IVF overnight, FeNa showing intrinsic renal failure as etiology, but will continue fluids for time being as it seems to be helping his creatinine. -Post void residuals are normal this AM, DC bladder scans. #. Normocytic anemia - Iron mildly low, will replete with PO iron - Anemia still not explained by iron deficiency, will obtain peripheral smear, occult blood in stool. #. T1DM -Sliding scale insulin - Will wait and see if patient requires levemir #. Asthma -Albuterol inhaler, not requiring any overnight. #. Hyponatremia -Resolved. #. Hypertension -Starting patient on 10 mg PO Amlodipine with holding parameters. Adding on lisinopril as patient's renal function normalizing. -DVT prophy: heparin, teds/seqs Attending attestation: I evaluated and examined the patient in person; I discussed the care with Resident in detail and agree with the plan above. VS,Megane, I+O VS, Fishbone, I+O Laboratory Tests 10/28/19 06:40 Vital Signs Date Time Temp Pulse Resp B/P (MAP) Pulse Ox O2 Delivery O2 Flow Rate FiO2 10/28/19 08:26 85 168/105 10/28/19 06:00 97.8 19 99 Room Air I&O- Last 24 Hours up to 6 AM 10/28/19 06:00 Intake Total 2770 ml Output Total 1275 ml Balance 1495 ml GME ATTESTATION GME ATTESTATION My faculty preceptor for this patient encounter was physically present during the encounter and was fully available. All aspects of the patient interview, examination, medical decision making process, and medical care plan development were reviewed and approved by the faculty preceptor. The faculty preceptor is aware and concurs with the plan as stated in the body of this note and will attest to such by his/her cosignature. DONNA SALDANA DO Oct 28, 2019 11:33 JOHNATHON PETE MD November 03, 2019 19:09
[2019-10-28] MEDS: MAGNESIUM OXIDE 400 MG TAB (MAG-OX) PO SCH (11:42)
[2019-10-28] MEDS ORDERED: MAG SULF 1GM/100ML (MAG RUN) 1 GM in IV 1 EA IV ONE (12:15)
[2019-10-28 14:00] VITALS: BP 169/107
[2019-10-28] MEDS ORDERED: **hydrALAZINE** 10 MG TAB PO SCH (21:00)
[2019-10-28 22:00] VITALS: BP 160/103
[2019-10-29] VITALS (10 sets, daily range): BP systolic 160–178; BP diastolic 92–115
[2019-10-29] MEDS: **hydrALAZINE** 10 MG TAB PO SCH ×2 (00:20→05:38)
[2019-10-29] MEDS: HEPARIN SOD (PORCINE) 5000UNITS/ML VIAL (J1644 PER 1000UNITS) SC SCH ×3 (05:28→21:24)
[2019-10-29] MEDS: NS 1,000 ML IV SCH (05:28)
[2019-10-29] MEDS: amLODIPine 10 MG TAB PO SCH (05:38)
[2019-10-29 06:09] LABS: HEMATOCRIT 25.5 % (42.0-52.0); HEMOGLOBIN 8.8 g/dl (13.5-17.5); MEAN CORPUSCULAR HEMOGLOBIN 30.8 pg (27.0-33.0); MEAN CORPUSCULAR HGB CONC 34.5 g/dl (32.0-36.5); MEAN CORPUSCULAR VOLUME 89.2 fl (80.0-96.0); PLATELET COUNT, AUTOMATED 304 10^3/uL (150-450); RED BLOOD COUNT 2.86 10^6/uL (4.30-6.10); WHITE BLOOD COUNT 9.8 10^3/uL (4.0-10.0)
[2019-10-29 06:37] LABS: CALCIUM LEVEL 7.7 MG/DL (8.5-10.1); CREATININE FOR GFR 1.91 MG/DL (0.70-1.30); GLOMERULAR FILTRATION RATE 54.8 (>60); MAGNESIUM LEVEL 1.5 MG/DL (1.8-2.4); PHOSPHORUS LEVEL 2.9 MG/DL (2.5-4.9); POTASSIUM SERUM 3.7 MEQ/L (3.5-5.1)
[2019-10-29] MEDS: MAGNESIUM OXIDE 400 MG TAB (MAG-OX) PO SCH (08:49)
[2019-10-29] MEDS: HumaLOG INSULIN (NovoLOG) PER UNIT SC SCH ×4 (08:49→21:00)
[2019-10-29] MEDS: lisinopriL 20 MG TAB PO SCH (08:50)
[2019-10-29] MEDS: FERROUS GLUCONATE 324 MG TAB PO SCH (08:50)
[2019-10-29] MEDS ORDERED: lisinopriL 5 MG TAB PO SCH (09:00)
[2019-10-29] MEDS ORDERED: lisinopriL 20 MG TAB PO SCH (09:00)
[2019-10-29] MEDS: MAG SULF 1GM/100ML (MAG RUN) 1 GM in IV 1 EA IV SCH ×4 (09:51→13:22)
--- NOTE | 2019-10-29 10:48 | IPNPDOC ---
Text Note Date of Service The patient was seen on 10/29/19. VS,Fishbone, I+O VS, Fishbone, I+O Laboratory Tests 10/29/19 05:19 Vital Signs Date Time Temp Pulse Resp B/P (MAP) Pulse Ox O2 Delivery O2 Flow Rate FiO2 10/29/19 08:50 168/114 10/29/19 06:00 99.1 88 15 98 Room Air I&O- Last 24 Hours up to 6 AM 10/29/19 06:00 Intake Total 4480 ml Output Total 2025 ml Balance 2455 ml GME ATTESTATION GME ATTESTATION My faculty preceptor for this patient encounter was physically present during the encounter and was fully available. All aspects of the patient interview, examination, medical decision making process, and medical care plan development were reviewed and approved by the faculty preceptor. The faculty preceptor is a rossi and concurs with the plan as stated in the body of this note and will attest to such by his/her cosignature. DONNA SALDANA DO Oct 29, 2019 10:48
[2019-10-29] MEDS: **hydrALAZINE HCL** 25 MG TAB PO SCH ×2 (13:27→21:24)
[2019-10-29 16:51] LABS: CREATININE,RANDOM URINE 38.6 MG/DL; TOTAL PROTEIN,RANDOM URINE 308.4 MG/DL (0.0-12.0)
--- NOTE | 2019-10-29 17:33 | IPNPDOC ---
Text Note Date of Service The patient was seen on 10/29/19. NOTE SUBJECTIVE: Patient is a 29-year-old male who presented with chief complaint of elevated blood glucose found to have acute on suspected chronic renal failure and anemia. Patient requiring added levels of blood pressure medications overnight, he states this is stress from his difficulties with the legal system and initially wanted to leave AMA, but now that police are here he is comfortable staying as long as we think he needs to stay. Patient has no complaints this morning he denies any fevers, chills, chest pain, difficulty breathing, abdominal pain, nausea, vomiting. OBJECTIVE: PHYSICAL EXAM: Vitals: (see below) General: No acute distress, laying comfortably in bed. HEENT: Normocephalic, atraumatic. EOMI. No scleral icterus. Moist mucous membranes. No pharyngeal erythema or uvular deviation. Neck: No JVD, lymphadenopathy, or thyromegaly. Cardiac: RRR, Normal S1 and S2, No murmurs, gallops, rubs. Pulm: Clear to auscultation b/l. Symmetric thorax. No wheezing, crackles, rhonchi Abd: Bowel Sounds present. Abdomen is soft, non-tender, non-distended. No gua rding, rebound tenderness, or rigidity. No hepatosplenomegaly. No masses or eccymosis. Ext: No edema or cyanosis Neuro: No focal neuro deficits LABORATORY DATA, MICROBIOLOGY: Please see below. IMAGING STUDIES: ASSESSMENT AND PLAN: #. Acute on suspected chronic renal failure -Mildly improved from day prior, suspect Pre-renal elements of intrinsic renal disease likely from hypertensive vs. diabetic nephropathy. Fluids DC'd as patient has been adequately volume resuscitated, Cr baseline unknown but may be approaching baseline and will require nephrology follow up. - Renal US demonstrating elements of chronic kidney disease - Patient will need to establish with nephrology outpatient. #. Hypertension - Amlodipine 10 mg daily - Lisinopril increased to 40 mg today. - Hydralazine 40 mg PO BID increased today. Ok to give extra dose overnight if needed, but this will likely require further follow up on an outpatient basis. #. Normocytic anemia - Iron mildly low, will replete with PO iron - Normal peripheral smear - Suspect this anemia is related to his kidney disease. #. T1DM -Sliding scale insulin - Will wait and see if patient requires levemir #. Asthma -Albuterol inhaler as needed. -DVT prophy: heparin, teds/seqs Attending attestation: I evaluated and examined the patient in person; I discussed the care with Resident in detail and agree with the plan above. VS,Fishbone, I+O VS, Fishbone, I+O Laboratory Tests 10/29/19 05:19 Vital Signs Date Time Temp Pulse Resp B/P (MAP) Pulse Ox O2 Delivery O2 Flow Rate FiO2 10/29/19 14:30 98.7 98 18 164/100 (121) 98 10/29/19 06:00 Room Air I&O- Last 24 Hours up to 6 AM 10/29/19 06:00 Intake Total 4480 ml Output Total 2025 ml Balance 2455 ml GME ATTESTATION GME ATTESTATION My faculty preceptor for this patient encounter was physically present during the encounter and was fully available. All aspects of the patient interview, examination, medical decision making process, and medical care plan development were reviewed and approved by the faculty preceptor. The faculty preceptor is aware and concurs with the plan as stated in the body of this note and will attest to such by his/her cosignature. DONNA SALDANA DO Oct 29, 2019 17:33 JOHNATHON PETE MD November 03, 2019 19:22
[2019-10-30] MEDS: HEPARIN SOD (PORCINE) 5000UNITS/ML VIAL (J1644 PER 1000UNITS) SC SCH ×3 (05:35→22:00)
[2019-10-30 06:00] VITALS: BP 170/115
[2019-10-30 06:04] VITALS: BP 160/84
[2019-10-30 08:02] LABS: HEMATOCRIT 24.7 % (42.0-52.0); HEMOGLOBIN 8.6 g/dl (13.5-17.5); MEAN CORPUSCULAR HEMOGLOBIN 30.9 pg (27.0-33.0); MEAN CORPUSCULAR HGB CONC 34.8 g/dl (32.0-36.5); MEAN CORPUSCULAR VOLUME 88.8 fl (80.0-96.0); PLATELET COUNT, AUTOMATED 279 10^3/uL (150-450); RED BLOOD COUNT 2.78 10^6/uL (4.30-6.10); WHITE BLOOD COUNT 9.3 10^3/uL (4.0-10.0)
[2019-10-30 08:05] LABS: BLOOD UREA NITROGEN 10 MG/DL (7-18); CALCIUM LEVEL 7.7 MG/DL (8.5-10.1); CARBON DIOXIDE LEVEL 24 MEQ/L (21-32); CHLORIDE LEVEL 111 MEQ/L (98-107); GLOMERULAR FILTRATION RATE 55.1 (>60); GLUCOSE, FASTING 169 MG/DL (70-100); MAGNESIUM LEVEL 1.7 MG/DL (1.8-2.4); PHOSPHORUS LEVEL 3.8 MG/DL (2.5-4.9); POTASSIUM SERUM 3.8 MEQ/L (3.5-5.1); SODIUM LEVEL 141 MEQ/L (136-145)
[2019-10-30] MEDS ORDERED: MAG SULF 1GM/100ML (MAG RUN) 1 GM in IV 1 EA IV SCH (09:00)
[2019-10-30 09:07] LABS: ALBUMIN 1.6 GM/DL (3.2-5.2); ALT/SGPT 10 U/L (12-78); BILIRUBIN,DIRECT < 0.1 MG/DL (0.0-0.2); BILIRUBIN,TOTAL 0.2 MG/DL (0.2-1.0); CHOLESTEROL LEVEL 204 MG/DL (<200); CHOLESTEROL RISK RATIO 4.975 (<5); HDL CHOLESTEROL 41 MG/DL (>40); LDL CHOLESTEROL 130 MG/DL (<100); NON-HDL-C 163 MG/DL; TOTAL PROTEIN 5.4 GM/DL (6.4-8.2); TRIGLYCERIDES LEVEL 164 MG/DL (<150)
[2019-10-30] MEDS: MAG SULF 1GM/100ML (MAG RUN) 1 GM in IV 1 EA IV SCH ×4 (09:11→11:26)
[2019-10-30] MEDS: lisinopriL 20 MG TAB PO SCH (09:11)
[2019-10-30] MEDS: FERROUS GLUCONATE 324 MG TAB PO SCH (09:12)
[2019-10-30] MEDS: amLODIPine 10 MG TAB PO SCH (09:12)
[2019-10-30] MEDS: **hydrALAZINE HCL** 25 MG TAB PO SCH ×2 (09:12→20:13)
[2019-10-30] MEDS: MAGNESIUM OXIDE 400 MG TAB (MAG-OX) PO SCH (09:12)
[2019-10-30] MEDS: HumaLOG INSULIN (NovoLOG) PER UNIT SC SCH ×4 (09:13→21:00)
[2019-10-30 09:32] LABS: INR 1.1; PARTIAL THROMBOPLASTIN TIME 34.7 SECONDS (25.0-38.4)
[2019-10-30 14:14] LABS: COMPLEMENT C3 136 MG/DL (90-180); COMPLEMENT C4 48 MG/DL (10-40)
--- NOTE | 2019-10-30 19:35 | IPNPDOC ---
Text Note Date of Service The patient was seen on 10/30/19. NOTE SUBJECTIVE: Patient is a 29-year-old male who presented with chief complaint of elevated blood glucose found to have acute on chronic renal failure with now suspected anemia of chronic disease. No acute events overnight and patient has no complaints at bedside this morning, we informed him that we suspect he has fairly significant renal disease and we would be reaching out to nephrology for further help with this, he had no questions. He denies any fevers, chills, chest pain, difficulty breathing, abdominal pain, nausea, vomiting. OBJECTIVE: PHYSICAL EXAM: Vitals: (see below) General: No acute distress, laying comfortably in bed. HEENT: Normocephalic, atraumatic. EOMI. No scleral icterus. Moist mucous membranes. Neck: No JVD, lymphadenopathy, or thyromegaly. Cardiac: RRR, Normal S1 and S2, No murmurs, gallops, rubs. Pulm: Clear to auscultation b/l. Symmetric thorax. No wheezing, crackles, rhonchi Abd: Bowel Sounds present. Abdomen is soft, non-tender, non-distended. Ext: No edema or cyanosis Neuro: No focal neuro deficits LABORATORY DATA, MICROBIOLOGY: Please see below. IMAGING STUDIES: ASSESSMENT AND PLAN: #. 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 -Nephrology consulted, recommendations appreciated. #. Hypertension - Amlodipine 10 mg daily - Lisinopril increased to 40 mg today. - Hydralazine 50 mg PO TID added on today. #. Normocytic anemia - Likely from patient's renal disease as EPO and reticulocyte index show lack of appropriate elevation. #. T1DM -Sliding scale insulin #. Asthma -Albuterol inhaler as needed. Disposition: Pending nephrology evaluation. Attending attestation: I evaluated and examined the patient in person; I discussed the care with Resident in detail and agree with the plan above. VS,Fishbone, I+O VS, Fishbone, I+O Laboratory Tests 10/30/19 06:58 10/30/19 06:59 Vital Signs Date Time Temp Pulse Resp B/P (MAP) Pulse Ox O2 Delivery O2 Flow Rate FiO2 10/30/19 09:11 160/84 5/1/20 06:00 98.6 94 16 98 Room Air I&O- Last 24 Hours up to 6 AM 10/30/19 06:00 Intake Total 1940 ml Output Total 1400 ml Balance 540 ml GME ATTESTATION GME ATTESTATION My faculty preceptor for this patient encounter was physically present during the encounter and was fully available. All aspects of the patient interview, examination, medical decision making process, and medical care plan development were reviewed and approved by the faculty preceptor. The faculty preceptor is aware and concurs with the plan as stated in the body of this note and will attest to such by his/her cosignature. DONNA SALDANA DO October 30, 2019 19:35 JOHNATHON PETE MD November 03, 2019 19:27
[2019-10-30 19:57] VITALS: BP 159/103
[2019-10-30 20:07] VITALS: BP 158/108
[2019-10-31 06:00] VITALS: BP 160/100
[2019-10-31] MEDS: HEPARIN SOD (PORCINE) 5000UNITS/ML VIAL (J1644 PER 1000UNITS) SC SCH ×3 (06:00→20:44)
[2019-10-31 06:03] LABS: MAGNESIUM LEVEL 2.2 MG/DL (1.8-2.4); PHOSPHORUS LEVEL 4.1 MG/DL (2.5-4.9)
[2019-10-31] MEDS: FERROUS GLUCONATE 324 MG TAB PO SCH (07:55)
[2019-10-31] MEDS: HumaLOG INSULIN (NovoLOG) PER UNIT SC SCH ×4 (07:55→20:30)
[2019-10-31] MEDS: amLODIPine 10 MG TAB PO SCH (07:56)
[2019-10-31] MEDS: lisinopriL 20 MG TAB PO SCH (07:56)
[2019-10-31] MEDS: **hydrALAZINE HCL** 25 MG TAB PO SCH (07:56)
[2019-10-31] MEDS: MAGNESIUM OXIDE 400 MG TAB (MAG-OX) PO SCH (07:56)
[2019-10-31 08:11] LABS: Cannabinoid Positive (.); GC Carboxy THC 92 ng/mL (Cutoff=10)
[2019-10-31] MEDS ORDERED: DARBEPOETIN 100 MCG/0.5 ML *NON-DIALYSIS* SYRINGE (J0881) SC SCH (09:00)
[2019-10-31 10:15] LABS: CALCIUM LEVEL 8.3 MG/DL (8.5-10.1); CREATININE FOR GFR 2.07 MG/DL (0.70-1.30); GLOMERULAR FILTRATION RATE 49.9 (>60); POTASSIUM SERUM 3.7 MEQ/L (3.5-5.1)
--- NOTE | 2019-10-31 11:32 | IPNPDOC ---
Text Note Date of Service The patient was seen on 10/31/19. NOTE SUBJECTIVE: Patient is a 29-year-old male who presented with chief complaint of elevated blood glucose found to have acute on chronic renal failure with now suspected anemia of chronic disease. No acute events overnight and no complaints from patient at bedside. Again reiterated that he was being evaluated for fairly significant renal disease and he brought up that Dr. Snyder may proceed forward with a biopsy on Saturday. He denies any fevers, chills, chest pain, difficulty b reathing, abdominal pain, nausea, vomiting. OBJECTIVE: PHYSICAL EXAM: Vitals: (see below) General: No acute distress, laying comfortably in bed. HEENT: Normocephalic, atraumatic. EOMI. No scleral icterus. Moist mucous membranes. Neck: No JVD, lymphadenopathy, or thyromegaly. Cardiac: RRR, Normal S1 and S2, No murmurs, gallops, rubs. Pulm: Clear to auscultation b/l. Symmetric thorax. No wheezing, crackles, rhonchi Abd: Bowel Sounds present. Abdomen is soft, non-tender, non-distended. Ext: No edema or cyanosis Neuro: No focal neuro deficits LABORATORY DATA, MICROBIOLOGY: Please see below. IMAGING STUDIES: ASSESSMENT AND PLAN: #. 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 -Nephrology consulted, recommendations appreciated. #. Resistant Hypertension - Amlodipine 10 mg daily - Lisinopril increased to 40 mg today. - Increasing Hydralazine to 75 mg PO TID added on today. #. Normocytic anemia - Likely from patient's renal disease as EPO and reticulocyte index show lack of appropriate elevation. #. T1DM -Sliding scale insulin #. Asthma -Albuterol inhaler as needed. Disposition: Pending nephrology evaluation. Attending attestation: I evaluated and examined the patient in person; I discussed the care with Amanda leach in detail and agree with the plan above. VS,Fishbone, I+O VS, Fishbone, I+O Laboratory Tests 10/31/19 05:15 Vital Signs Date Time Temp Pulse Resp B/P (MAP) Pulse Ox O2 Delivery O2 Flow Rate FiO2 10/31/19 07:56 160/100 10/31/19 07:56 93 10/31/19 06:00 99.1 18 98 Room Air I&O- Last 24 Hours up to 6 AM 10/31/19 06:00 Intake Total 2400 ml Output Total 925 ml Balance 1475 ml GME ATTESTATION GME ATTESTATION My faculty preceptor for this patient encounter was physically present during the encounter and was fully available. All aspects of the patient interview, examination, medical decision making process, and medical care plan development were reviewed and approved by the faculty preceptor. The faculty preceptor is aware and concurs with the plan as stated in the body of this note and will attest to such by his/her cosignature. DONNA SALDANA DO October 31, 2019 11:32 JOHNATHON PETE MD November 03, 2019 19:33
[2019-10-31] MEDS: CARVedilol 6.25 MG TAB PO SCH ×2 (12:24→20:44)
[2019-10-31 12:33] LABS: HEMATOCRIT 26.8 % (42.0-52.0); MEAN CORPUSCULAR HEMOGLOBIN 30.5 pg (27.0-33.0); MEAN CORPUSCULAR HGB CONC 33.6 g/dl (32.0-36.5); MEAN CORPUSCULAR VOLUME 90.8 fl (80.0-96.0); PLATELET COUNT, AUTOMATED 289 10^3/uL (150-450); RED BLOOD COUNT 2.95 10^6/uL (4.30-6.10); WHITE BLOOD COUNT 11.1 10^3/uL (4.0-10.0)
[2019-10-31 14:00] VITALS: BP 158/92
[2019-10-31] MEDS ORDERED: **hydrALAZINE HCL** 25 MG TAB PO SCH (16:00)
[2019-10-31] MEDS: **hydrALAZINE** 50 MG TAB PO SCH ×2 (16:07→20:43)
--- NOTE | 2019-10-31 16:10 | IPN ---
DATE: 10/31/2019 SUBJECTIVE: The patient was seen and examined at the bedside today morning. He is afebrile. His blood pressures are still uncontrolled despite change in his medications. His renal function is stable. Glucose levels are better controlled at this time. He denies any active complaints. OBJECTIVE: VITAL SIGNS: Temperature is 99.1 degrees Fahrenheit, blood pressure 160/100, pulse is 93, respiratory rate of 18, saturating 98% on room air. INTAKE AND OUTPUT: Urine output recorded is 925 mL yesterday. There is no urine output recorded since overnight and there are four voids recorded. Weight in the bed scale is 106 kg. PHYSICAL EXAMINATION: GENERAL: The patient is awake, alert, oriented times three, laying in bed, in no apparent distress. HEAD AND NECK: Extraocular muscles intact. Pupils equally round and reactive to light. Mucous membranes are moist. Neck is supple. There is no jugular venous distention (JVD). CARDIOVASCULAR: S1, S2, tachycardia. No edema of the bilateral lower extremities. Heart sounds are audible on the right side instead of the left side because of dextrocardia. RESPIRATORY: Chest is clear to auscultation bilaterally. Bilateral equal air entry. No rales or rhonchi. ABDOMEN: Soft, positive bowel sounds, nontender. No organomegaly. MUSCULOSKELETAL: No clubbing or cyanosis. Pulses are 2+. 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 Power is 5/5 in all extremities. SKIN: No rashes or ulcers. LABORATORY REVIEW: CBC showed a WBC of 9.3, hemoglobin 8.6, platelets are 179. Urine showed random creatinine was 38, random total protein was 308. BMP done today showed sodium 138, potassium 3.7, chloride 108, bicarbonate 25, BUN 12, creatinine is 2, calcium 8.3, phosphorus 4.1, magnesium is 2.2. Urine toxicology is positive for cannabinoids. Immunology is pending, only C3 and C4 is back and C4 is slightly elevated at 48. Hepatitis serology is also pending. CURRENT INPATIENT MEDICATIONS: The patient's medications were all reviewed by myself. He is on Tylenol as needed. He continues to be on amlodipine 10 mg daily. I have started the patient on carvedilol 6.25 mg by mouth twice a day. Hydralazine was increased to 75 mg by mouth three times a day by primary team today. However, I have decreased the dose of hydralazine back to 50 mg three times a day because carvedilol is being added and he continues to be on lisinopril. No other change in the medications today as compared with yesterday. ASSESSMENT AND PLAN: 1. Chronic kidney disease, stage III. The patient most likely has diabetic nephropathy. The patient was noncompliant with his medications and he has not seen any physician in the last three years. Renal function is stable. Okay to continue current dose of angiotensin-converting enzyme (SHAHRAM) inhibitors. 2. Proteinuria. The patient has significant proteinuria, but when the test was done, the patient had uncontrolled blood pressure and he has uncontrolled diabetes. Most likely etiology of proteinuria is diabetic nephropathy. The patient is already on an SHAHRAM inhibitor. Autoimmune serologies are pending. No urgent need of renal biopsy at this time. 3. Hypertension with chronic kidney disease. Continue current dose of lisinopril 40 mg daily, amlodipine 10 mg daily, hydralazine 50 mg by mouth three times a day. The patient has tachycardia and he has no beta blockade. I have started the patient on Coreg 6.25 mg by mouth twice a day with holding parameters. 4. Anemia and chronic kidney disease. The patient's iron level was slightly low. However, transferrin saturation and ferritin were okay. He continues to be on oral iron. I am going to start the patient on Aranesp. No need of blood transfusion at this time. 5. Insulin-dependent diabetes. The patient is currently on Humalog. He is getting 4-6 units three times a day with meals. Controlling the diabetes only with a short-acting insulin is not ideal. I am going to start the patient on a long-acting insulin as well. The patient's A1c on admission was more than 13. MTDD
[2019-10-31] MEDS: LEVEMIR (INSULIN DETEMIR) 1 UNITS/0.01ML SC SCH (20:43)
[2019-10-31 22:00] VITALS: BP 146/92
[2019-11-01] MEDS: HEPARIN SOD (PORCINE) 5000UNITS/ML VIAL (J1644 PER 1000UNITS) SC SCH ×3 (05:05→20:33)
[2019-11-01 05:53] LABS: HEMOGLOBIN 8.9 g/dl (13.5-17.5); MEAN CORPUSCULAR HEMOGLOBIN 30.6 pg (27.0-33.0); MEAN CORPUSCULAR HGB CONC 34.2 g/dl (32.0-36.5); MEAN CORPUSCULAR VOLUME 89.3 fl (80.0-96.0); PLATELET COUNT, AUTOMATED 289 10^3/uL (150-450); RED BLOOD COUNT 2.91 10^6/uL (4.30-6.10); WHITE BLOOD COUNT 11.9 10^3/uL (4.0-10.0)
[2019-11-01 06:00] VITALS: BP 140/84
[2019-11-01 06:20] LABS: ALBUMIN 1.6 GM/DL (3.2-5.2); CALCIUM LEVEL 8.4 MG/DL (8.5-10.1); CREATININE FOR GFR 2.27 MG/DL (0.70-1.30); GLOMERULAR FILTRATION RATE 44.9 (>60); MAGNESIUM LEVEL 1.9 MG/DL (1.8-2.4); PHOSPHORUS LEVEL 4.2 MG/DL (2.5-4.9); POTASSIUM SERUM 3.5 MEQ/L (3.5-5.1)
[2019-11-01] MEDS: HumaLOG INSULIN (NovoLOG) PER UNIT SC SCH ×4 (07:21→20:23)
[2019-11-01] MEDS ORDERED: POTASSIUM CHLORIDE 10 MEQ SR TABLET PO ONE (08:30)
[2019-11-01] MEDS: MAGNESIUM OXIDE 400 MG TAB (MAG-OX) PO SCH (08:48)
[2019-11-01] MEDS: lisinopriL 20 MG TAB PO SCH (08:48)
[2019-11-01] MEDS: FERROUS GLUCONATE 324 MG TAB PO SCH (08:48)
[2019-11-01] MEDS: **hydrALAZINE** 50 MG TAB PO SCH ×3 (08:48→20:24)
[2019-11-01] MEDS: CARVedilol 6.25 MG TAB PO SCH ×2 (08:49→20:23)
[2019-11-01] MEDS: amLODIPine 10 MG TAB PO SCH (08:49)
--- NOTE | 2019-11-01 10:37 | CR ---
DATE OF CONSULTATION: 10/30/2019 NEPHROLOGY CONSULTATION REASON FOR CONSULTATION: Nephrotic syndrome and acute kidney injury. HISTORY OF PRESENT ILLNESS Mr. Mead is a 28-year-old -[place] male who has known history of diabetes since age 15 and hypertension. He is not followed regularly by any medical physician. He had been using insulin that he had received when he was discharged from his incarceration in 2018 and not monitoring his blood sugars. He is now admitted with elevated blood sugar and was also found to have acute renal failure and significant proteinuria. He has been started on antihypertensive medications and blood pressure is still elevated despite three antihypertensive meds. A nephrology consultation was requested today, and the patient is seen this afternoon. PAST MEDICAL HISTORY: Significant for diabetes, hypertension, situs inversus, suspicious for Kartagener's syndrome, anemia and chronic kidney disease. PAST SURGICAL HISTORY: Significant for bilateral ankle surgery and a polyp removal. FAMILY HISTORY: Significant for diabetes. There is no known history in the family for end-stage renal disease. PERSONAL AND SOCIAL HISTORY: The patient smokes one pack of cigarettes daily and also admits marijuana use. Denies any intravenous drug or alcohol use. OUTPATIENT MEDICATIONS: He was not taking any medications other than occasional use of insulin. ALLERGIES: The patient has seasonal allergies. REVIEW OF SYSTEMS: The patient speaks only a few words or a small sentence and usually answers questions with yes or no. He denies any fever or chills. Ears, nose and throat are unremarkable. Cardiovascular system: Negative for dyspnea, chest pain or leg edema. Respiratory system: Negative for hemoptysis or pleuritic type of chest pain. Gastrointestinal (GI) system: Negative for vomiting or diarrhea. Genitourinary () system: Negative for dysuria or hematuria. Endocrine system: Significant for longstanding diabetes, which is not regularly treated. Psychosocial system: Negative for depression or anxiety. Neurological system: Negative for seizures or stroke. Hematological system: Significant for anemia diagnosed during this admission. Skin: Negative for rash or ulcers. Musculoskeletal system: Negative for leg edema. PHYSICAL EXAMINATION: Young -[place]ian male lying in the bed without any acute distress. Temperature is 98.6 degrees Fahrenheit, heart rate 94 per minute and respiratory rate 16 per minute. Blood pressure 160/84 mmHg and oxygen saturation 98% on room air. His head is atraumatic. Pupils equal and reactive to light and sclerae is anicteric. Neck is supple and without jugular venous distention (JVD) or thyroid enlargement and trachea is midline. Heart sounds are regular and somewhat tachycardiac. Lungs sound clear to auscultation bilaterally. Abdomen: Soft and nontender and without palpable organomegaly. Bowel sounds are normal. Extremities: Without any cyanosis or clubbing. Skin has no rash or ulcers. Neurologically, he is awake, alert and without a focal deficit. LABORATORY DATA: On admission, his blood glucose was 443, BUN 24 and creatinine 3.14. Sodium 130 and potassium 3.7. A1c is 13.4 and calcium 8.4. Serum albumin was only 2.1. Serum creatinine came down to 2.0 on October 28, 2019 and 1.9 on October 29, 2019. Today, creatinine is 1.9 and BUN is 10. Sodium is 141 and potassium 3.8. His total protein is now 5.4 and albumin only 1.6. His urinalysis showed 3+ protein and 3+ glucose. Random urine protein was 308 and random urine creatinine was 38. PROBLEMS: 1. Acute kidney injury superimposed on chronic kidney disease. His renal ultrasound did have increased cortical echogenicity suggestive of medical renal disease. He had only mild bilateral hydronephrosis, which is not consistent with any significant chronic obstruction. In view of improvement in the kidney function since admission, it seems to be that most likely he had some prerenal azotemia. He has no use of nonsteroidal anti-inflammatory drugs (NSAIDS) or any other nephrotoxic meds. 2. Chronic kidney disease, most likely hypertensive diabetic nephropathy. The patient has significant hypertension requiring at least three medications and history of untreated diabetes for about more than 10 years. He was diagnosed with diabetes at age 15 and has been on metformin at times, which currently he is not taking. He likely has underlying hypertensive and diabetic kidney disease. 3. Proteinuria. I feel most likely this is related to diabetic nephropathy and hypertension. He is already on angiotensin-converting enzyme (SHAHRAM) inhibitor now and blood pressure is slightly improved since admission. I would suggest to continue with optimizing his antihypertensive therapy and then consider to repeat his urine protein; in fact, it will take weeks or months before we can expect any improvement in the proteinuria. I have explained to the patient about importance of continued medical therapy and follow up in order to prevent further damage to his kidneys. We will also get a hepatitis screen and serology to rule out any possibility of vasculitis, so there is no other clinical evidence to suggest it. Kidney biopsy is also an option, but I would like to control his diabetes and hypertension first and then reassess his proteinuria at a later time before we make a decision for kidney biopsy. In view of his history of no medical follow up in the past, I am not very optimistic that he will be able to follow up and take care of his medical problems. I have stressed upon the patient and explained to him in detail about damage already done to his kidneys and risk for further damage and other medical problems. At this point, we will get a 24-hour urine collection to see what his 24-hour urine protein is at this point. 4. Hypertension. Blood pressure is still suboptimal. Probably a low-dose beta maribel can be added along with SHAHRAM inhibitor, calcium channel maribel and vasodilator. I feel that diuretic should be avoided as he did have some dehydration on admission. 5. Protein-calorie malnutrition. The patient has very low serum albumin, which is partly related to proteinuria and partly related to low protein intake. He also has very low BUN, which is also suggestive off low protein intake. The patient should be placed on 100 gram protein diet. 6. Uncontrolled diabetes. Diabetes is controlled better now while he is in the hospital. He understands to continue treatment and try to achieve optimum A1c level of 6.5-7.0% range. Thank you for involving me in the care of Mr. Mead. Nephrology service will follow him along with you.
--- NOTE | 2019-11-01 12:17 | IPNPDOC ---
Date Seen The patient was seen on 11/01/19. Progress Note SUBJECTIVE: 29-year-old male with past medical history of diabetes mellitus, hypertension and chronic kidney disease is admitted for uncontrolled hypertension, acute on chronic kidney disease and nephrotic range proteinuria. Patient has been started on 4 antihypertensive medications, blood pressure control has improved but remains slightly elevated, no acute events overnight, patient comfortable and morning without any complaints. Patient denies any shortness of breath, chest pain, nausea, vomiting, abdominal pain, diarrhea or constipation. 10 point review of system is negative except for above PHYSICAL EXAMINATION: VITAL SIGNS: Please see below. GENERAL: No distress HEENT: Normocephalic, atraumatic, moist mucous membranes NECK: Supple CARDIOVASCULAR EXAMINATION: S1, S2, no murmurs RESPIRATORY EXAMINATION: Clear to auscultation, no wheezing ABDOMINAL EXAMINATION: Soft, nontender, nondistended, positive bowel sounds EXTREMITIES: Range of motion intact SKIN: No rash NEUROLOGICAL EXAMINATION: Alert and oriented 3, no focal deficits PSYCHIATRIC EXAMINATION: Calm and cooperative LABORATORY DATA, IMAGING STUDIES, MICROBIOLOGY: Please see below. ASSESSMENT AND PLAN: 29-year-old male with past medical history diabetes, hypertension and chronic kidney disease is admitted for uncontrolled hypertension, acute on chronic kidney disease and nephrotic range proteinuria. PROBLEMS: 1. Poorly controlled hypertension: Continue Norvasc, lisinopril, hydralazine and Coreg, SBP in the 140s today, we'll monitor for now without adjusting any medications. 2. Nephrotic range proteinuria: Patient with poorly controlled diabetes mellitus, likely diabetic nephropathy and chronic kidney disease, serological workup pending, further management as per nephrology. 3. Diabetes mellitus: Continue Levemir with sliding scale insulin coverage with meals and at bedtime. 4. Anemia: My suspicion is this is due to hypo-proliferation from chronic kidney disease, Aranesp was started by nephrology, continue iron supplementation, will monitor. VS, I&O, 24H, Zeyadbone Vital Signs/I&O Vital Signs Date Time Temp Pulse Resp B/P (MAP) Pulse Ox O2 Delivery O2 Flow Rate FiO2 11/01/19 08:49 96 140/84 11/01/19 06:00 98.5 18 97 Room Air I&O- Last 24 Hours up to 6 AM 11/01/19 06:00 Intake Total 2100 ml Output Total 300 ml Balance 1800 ml Laboratory Data 24H LABS Laboratory Tests 2 10/31/19 16:35: Bedside Glucose (Misc Panel) 236H 10/31/19 20:07: Bedside Glucose (Misc Panel) 245H 11/01/19 05:13: Nucleated Red Blood Cells % (auto) 0.0, Anion Gap 10, Glomerular Filtration Rate 44.9L, Calcium Level 8.4L, Phosphorus Level 4.2, Magnesium Level 1.9, Albumin 1.6L 11/01/19 05:37: Bedside Glucose (Misc Panel) 115H 11/01/19 11:27: Bedside Glucose (Misc Panel) 240H CBC/BMP Laboratory Tests 11/01/19 05:13 Microbiology Microbiology 10/27/19 Urine Culture - Final, Complete JOHNATHON PETE MD November 01, 2019 12:17
[2019-11-01 20:13] LABS: CREATININE 24 HOUR, URINE 1830.6 MG/24HR (950-2500); CREATININE, URINE 89.3 MG/DL; TOTAL PROTEIN 24 HOUR URINE 10221.3 MG/24HR (50-150); URINE TOTAL PROTEIN 498.6 MG/DL (0-12)
[2019-11-01 20:16] VITALS: BP 149/97
[2019-11-01] MEDS: LEVEMIR (INSULIN DETEMIR) 1 UNITS/0.01ML SC SCH (20:24)
[2019-11-02] MEDS: HEPARIN SOD (PORCINE) 5000UNITS/ML VIAL (J1644 PER 1000UNITS) SC SCH (04:19)
[2019-11-02 06:00] VITALS: BP 175/96
[2019-11-02 06:14] LABS: HEMATOCRIT 27.3 % (42.0-52.0); HEMOGLOBIN 9.4 g/dl (13.5-17.5); MEAN CORPUSCULAR HEMOGLOBIN 30.6 pg (27.0-33.0); MEAN CORPUSCULAR HGB CONC 34.4 g/dl (32.0-36.5); MEAN CORPUSCULAR VOLUME 88.9 fl (80.0-96.0); PLATELET COUNT, AUTOMATED 302 10^3/uL (150-450); RED BLOOD COUNT 3.07 10^6/uL (4.30-6.10); WHITE BLOOD COUNT 10.4 10^3/uL (4.0-10.0)
[2019-11-02 06:43] LABS: BLOOD UREA NITROGEN 18 MG/DL (7-18); CALCIUM LEVEL 8.1 MG/DL (8.5-10.1); CARBON DIOXIDE LEVEL 23 MEQ/L (21-32); CHLORIDE LEVEL 107 MEQ/L (98-107); CREATININE FOR GFR 2.41 MG/DL (0.70-1.30); GLOMERULAR FILTRATION RATE 41.9 (>60); GLUCOSE, FASTING 121 MG/DL (70-100); MAGNESIUM LEVEL 1.8 MG/DL (1.8-2.4); PHOSPHORUS LEVEL 4.1 MG/DL (2.5-4.9); POTASSIUM SERUM 4.2 MEQ/L (3.5-5.1); SODIUM LEVEL 139 MEQ/L (136-145)
[2019-11-02] MEDS ORDERED: ATORVASTATIN 20 MG TAB PO SCH (09:00)
[2019-11-02] MEDS: HumaLOG INSULIN (NovoLOG) PER UNIT SC SCH ×4 (09:11→21:24)
[2019-11-02] MEDS: MAGNESIUM OXIDE 400 MG TAB (MAG-OX) PO SCH (09:12)
[2019-11-02] MEDS: FERROUS GLUCONATE 324 MG TAB PO SCH (09:12)
[2019-11-02] MEDS: lisinopriL 20 MG TAB PO SCH (09:12)
[2019-11-02] MEDS: CARVedilol 12.5 MG TAB PO SCH ×2 (09:12→21:23)
[2019-11-02] MEDS: amLODIPine 10 MG TAB PO SCH (09:13)
[2019-11-02] MEDS: **hydrALAZINE** 50 MG TAB PO SCH ×3 (09:13→21:23)
[2019-11-02 10:08] LABS: HEPATITIS B SURFACE ANTIBODY POSITIVE (POSITIVE)
[2019-11-02 10:18] LABS: HEPATITIS B SURFACE ANTIGEN NEGATIVE (NEGATIVE)
[2019-11-02 10:43] LABS: HEPATITIS C VIRUS ABY INDEX 0.1 INDEX (<0.8)
[2019-11-02 10:47] LABS: HEPATITIS B CORE ANTIBODY IGM NEGATIVE (NEGATIVE)
[2019-11-02 10:56] LABS: HIV 1&2 SCREEN CENTAUR NEGATIVE (NEGATIVE)
[2019-11-02] MEDS ORDERED: LIDOCAINE 1% MDV 20ML VIAL As Ordered ONE (13:02)
[2019-11-02] MEDS ORDERED: fentaNYL 100 MCG/2 ML INJECTION (J3010) As Ordered ONE (13:11)
[2019-11-02] MEDS ORDERED: diphenhydrAMINE 50MG/ML VIAL (J1200) As Ordered ONE (13:11)
[2019-11-02] MEDS ORDERED: MIDAZOLAM INJ 2MG/2ML VIAL (J2250 PER 1MG) As Ordered ONE (13:11)
[2019-11-02] MEDS ORDERED: PROMETHAZINE INJ 25 MG/ML VIAL (J2550) As Ordered ONE (13:23)
--- NOTE | 2019-11-02 14:02 | POST-OPPD ---
Postoperative Procedure Note Date Of Procedure: November 02, 2019 Time Of Procedure: 14:01 PREOPERATIVE DIAGNOSIS: Renal disease POSTOPERATIVE DIAGNOSIS: same FINDINGS: unremarkable left kidney PROCEDURE: left kidney biopsy SURGEON: alton ANESTHESIA: local SPECIMENS: cores x 3 ESTIMATED BLOOD LOSS: < 5 ml COMPLICATIONS: none POSTOPERATIVE CONDITION: stable HERBERT BISHOP MD November 02, 2019 14:02
--- NOTE | 2019-11-02 14:07 | REP ---
IR CT guided kidney biopsy. Clinical information: Renal disease. Physician: Dr. Barrett. Procedure: The patient was advised of the benefits, risks and alternatives of the procedure and informed consent was obtained. The time-out was performed with verification of the patient's name, MRN, site of procedure and type of procedure to be performed. The patient was positioned in the supine position on the table. The site was prepped and draped in the usual sterile fashion. Moderate sedation was not performed but Fentanyl was administered for analgesia. The physician spent 45 minutes of continuous face to face time with the patient. Preliminary CT of the kidneys demonstrates unremarkable left kidney. The anticipated puncture site was anesthetized with lidocaine. A 17 G coaxial needle was inserted into the lower pole of the left kidney, under intermittent CT guidance. An 18 Gauge biopsy device was inserted through the coaxial needle and used to obtain core biopsies of the left Kidney, under intermittent CT guidance. The specimen was labeled with the patient's name and medical record number and sent for further analysis. The coaxial needle and biopsy device were removed, pressure held and hemostasis achieved. A follow-up CT through the area demonstrates a small hematoma. A sterile dressing was applied to the site. The patient tolerated the procedure well and was returned to the PRU in stable condition. EBL: < 5 ml. Complications: None. Conclusion: 1. CT demonstrates unremarkable left kidney. 2. Successful CT -guided core kidney biopsy. Patient to follow up with referring provider for biopsy results. Thank you for this referral. Electronically Signed by Tasha Barrett MD 11/02/2019 02:05 P
--- NOTE | 2019-11-02 14:10 | IPNPDOC ---
Date Seen The patient was seen on 11/02/19. Progress Note SUBJECTIVE: The patient was seen and examined at the bedside this morning. He has no complaints and no issues overnight. His BP continues to be elevated despite multi-drug regimen. He denies any headaches/dizziness/lightheadedness or any N/V/D. He denies any abdominal pain. Case was discussed with Nephrology (Mohsen) who recommends further workup with renal biopsy to further characterize renal disease. OBJECTIVE PHYSICAL EXAMINATION: VITAL SIGNS: Please see below. GENERAL APPEARANCE: Laying in bed, appears stated age, no acute distress, calm, cooperative HEENT: EOMI, PERRLA, neck is supple with no thyromegaly or lymphadenopathy RESPIRATORY: Lungs are clear to auscultation bilaterally with no adventitious breath sounds appreciated CARDIOVASCULAR: no JVD, RRR, no murmurs/rubs/gallops, normal S1 and S2 ABDOMEN: +BS, soft, nontender to palpation in all four quadrants, no masses/orga nomegaly EXTREMITIES: no clubbing, cyanosis or edema noted NEUROLOGICAL: CN 2-12 intact, No obvious focal deficits PSYCHIATRIC: normal mood/affect Skin: No rashes or ulcers appreciated, warm and well-perfused LN: No significant cervical or inguinal lymphadenopathy LABORATORY DATA, IMAGING STUDIES, MICROBIOLOGY: Please see below. DVT prophylaxis ordered?: SQH, will be started on Eliquis ASSESSMENT AND PLAN: This is a 29 YO M with history of type 1 diabetes, multi- drug resistent hypertension and CKD of unknown etiology who presented to the hospital with hyperglycemia found to have nephrotic range proteinuria. PROBLEMS: 1. Multi-drug resistent uncontrolled hypertension: BP still suboptimal at this time -Continue Norvasc, Lisinopril, Hydralazine -Coreg increased to 12.5mg BID 2. Nephrotic range proteinuria: -Patient was found to have 10g protein in 24-hr urine specimen -Nephrology consulted. Recommend renal biopsy with IR today. -Serologic workup still pending -Patient started on Atorvastatin today, will start Eliquis after renal biopsy today. 3. DM1: -Continue Levemir + SSI with hypoglycemic protocol 4. Anemia: likely chronic, due to CKD -Continue Aranesp, Iron supplements DISPOSITION: Pending further workup and optimization of BP Attending attestation: I evaluated and examined the patient in person; I discussed the care with Resident in detail and agree with the plan above. VS, I&O, 24H, Fishbone Vital Signs/I&O Vital Signs Date Time Temp Pulse Resp B/P (MAP) Pulse Ox O2 Delivery O2 Flow Rate FiO2 11/02/19 12:32 98.5 87 20 98 Room Air 11/02/19 09:13 175/96 I&O- Last 24 Hours up to 6 AM 11/02/19 06:00 Intake Total 2970 ml Balance 2970 ml Laboratory Data 24H LABS Laboratory Tests 2 11/01/19 16:37: Bedside Glucose (Misc Panel) 169H 11/01/19 16:40: Urine Creatinine 89.3, Urine Creatinine 24 Hour 1830.6, Urine Total Volume (Protein) 2050, Urine Total Protein 24 Hour 46464.3H, Urine Total Protein 498.6H 11/01/19 20:14: Bedside Glucose (Misc Panel) 179H 11/02/19 05:34: Nucleated Red Blood Cells % (auto) 0.0, Anion Gap 9, Glomerular Filtration Rate 41.9L, Calcium Level 8.1L, Phosphorus Level 4.1, Magnesium Level 1.8, HIV Antigen/Antibody Combo Qual NEGATIVE 11/02/19 11:32: Bedside Glucose (Misc Panel) 201H CBC/BMP Laboratory Tests 11/02/19 05:34 Microbiology Microbiology 10/27/19 Urine Culture - Final, Complete GME ATTESTATION GME ATTESTATION My faculty preceptor for this patient encounter was physically present during the encounter and was fully available. All aspects of the patient interview, examination, medical decision making process, and medical care plan development were reviewed and approved by the faculty preceptor. The faculty preceptor is aware and concurs with the plan as stated in the body of this note and will attest to such by his/her cosignature. TRIXIE LOCO MD November 02, 2019 14:10 JOHNATHON PETE MD November 03, 2019 19:51
[2019-11-02 14:30] VITALS: BP 169/97
[2019-11-02 15:00] VITALS: BP 168/101
[2019-11-02] MEDS: ACETAMINOPHEN TAB 650MG DOSE (2X325MG) PO PRN ×2 (15:03→15:33)
--- NOTE | 2019-11-02 15:17 | IPN ---
DATE OF SERVICE: 11/01/2019 SUBJECTIVE: The patient was seen and examined at the bedside today morning. She is afebrile, hemodynamically stable. His blood pressures are better controlled. He was started on Levemir injection yesterday. His glucose levels are also better controlled at this time. He continues to have proteinuria and hypoalbuminemia. Renal function is slightly worse today as compared with yesterday. OBJECTIVE: Vital Signs: Temperature is 98.5 degrees Fahrenheit, blood pressure 140/84, pulse is 96, respiratory rate of 18, saturating 97% on room air. Intake and Output: Urine output is not recorded. He has had three voids so far since overnight. Weight in the bed scale is 105.8 kg. PHYSICAL EXAMINATION General: The patient is awake, alert, oriented times three, laying in bed in no apparent distress. Head/Neck Exam: Extraocular muscles intact. Pupils equally round and reactive to light. Mucous membranes are moist. Neck is supple. There is no jugular venous distention (JVD). Cardiovascular: S1, S2, regular rate. No edema of the bilateral lower extremities. The patient has dextrocardia and he has heart sounds audible on the right side. Respiratory: Chest is clear to auscultation bilaterally. Bilateral equal air entry. No rales or rhonchi. Abdomen: Soft. Positive bowel sounds. Nontender. No organomegaly. Musculoskeletal: No clubbing or cyanosis. Pulses are 2+. Central Nervous System (SQUIRREL MAN): No focal deficit. Power is 5/5 in all extremities. LAB REVIEW: CBC showed WBC 11.9, hemoglobin 8.9, platelets of 189. BMP showed sodium 141, potassium 3.5, chloride 108, bicarbonate 23, BUN 15. Creatinine is 2.2, it was to 2 yesterday. Calcium 8.4, phosphorus 4.2, magnesium is 1.9, albumin is 1.6. Immunology is pending and serology is also pending. CURRENT INPATIENT MEDICATIONS: The patient's medications were all reviewed by myself. His antihypertensive regimen includes amlodipine 10 mg daily, Coreg 6.25 mg by mouth twice a day, hydralazine 50 mg by mouth three times a day and lisinopril 20 mg daily. He was given a dose of potassium chloride 40 mEq one dose. No other change in the medications today as compared with yesterday. ASSESSMENT/PLAN: 1. Chronic kidney disease, stage III. Most likely the patient has diabetic nephropathy. Baseline renal function is not known because the patient had not seen any physician in 3 years. Continue current medications. Proteinuria workup is as mentioned below. 2. Proteinuria. The patient has nephrotic range proteinuria based upon spot urine protein and creatinine. I have ordered 24-hour urine protein and creatinine now since the blood pressure is better controlled. Continue current dose of lisinopril 40 mg daily. Autoimmune serologies pending. Most likely etiology is diabetic nephropathy. 3. Hypertension with chronic kidney disease. Blood pressure is better controlled now. Continue current dose of lisinopril 40 mg daily, amlodipine 10 mg daily, hydralazine 50 mg three times a day, and Coreg 6.25 mg by mouth twice a day. My plan is to slowly titrate the Carvedilol dose up and slowly wean off hydralazine for better compliance as outpatient. 4. Anemia on chronic kidney disease. Iron levels are adequate. Continue current dose of Aranesp once a week. 5. Insulin dependent diabetes. Continue current dose of Levemir insulin sliding scale. Levemir dose to be slowly increased as needed based upon his requirements during mealtimes.
[2019-11-02 16:00] VITALS: BP 162/100
[2019-11-02 17:00] VITALS: BP 155/96
[2019-11-02 20:24] VITALS: BP 154/94
[2019-11-02] MEDS ORDERED: APIXABAN 2.5 MG TAB (ELIQUIS) PO SCH (21:00)
[2019-11-02] MEDS: ATORVASTATIN 20 MG TAB PO SCH (21:23)
[2019-11-02] MEDS: LEVEMIR (INSULIN DETEMIR) 1 UNITS/0.01ML SC SCH (21:24)
[2019-11-03 05:19] VITALS: BP 151/94
[2019-11-03 06:42] LABS: CALCIUM LEVEL 7.6 MG/DL (8.5-10.1); CREATININE FOR GFR 2.41 MG/DL (0.70-1.30); GLOMERULAR FILTRATION RATE 41.9 (>60); POTASSIUM SERUM 4.3 MEQ/L (3.5-5.1)
[2019-11-03 06:48] LABS: HEMATOCRIT 24.8 % (42.0-52.0); HEMOGLOBIN 8.4 g/dl (13.5-17.5); MEAN CORPUSCULAR HEMOGLOBIN 30.8 pg (27.0-33.0); MEAN CORPUSCULAR HGB CONC 33.9 g/dl (32.0-36.5); MEAN CORPUSCULAR VOLUME 90.8 fl (80.0-96.0); PLATELET COUNT, AUTOMATED 273 10^3/uL (150-450); RED BLOOD COUNT 2.73 10^6/uL (4.30-6.10); WHITE BLOOD COUNT 11.6 10^3/uL (4.0-10.0)
[2019-11-03] MEDS: HumaLOG INSULIN (NovoLOG) PER UNIT SC SCH ×4 (07:30→22:34)
[2019-11-03] MEDS: CARVedilol 12.5 MG TAB PO SCH ×2 (07:59→22:32)
[2019-11-03] MEDS: **hydrALAZINE** 50 MG TAB PO SCH ×3 (07:59→22:33)
[2019-11-03] MEDS: APIXABAN 2.5 MG TAB (ELIQUIS) PO SCH ×2 (08:00→22:32)
[2019-11-03] MEDS: lisinopriL 20 MG TAB PO SCH (08:00)
[2019-11-03] MEDS: MAGNESIUM OXIDE 400 MG TAB (MAG-OX) PO SCH (08:00)
[2019-11-03] MEDS: FERROUS GLUCONATE 324 MG TAB PO SCH (08:00)
[2019-11-03] MEDS: amLODIPine 10 MG TAB PO SCH (08:01)
--- NOTE | 2019-11-03 12:40 | IPNPDOC ---
Date Seen The patient was seen on 11/03/19. Progress Note SUBJECTIVE: The patient was seen and examined at the bedside this morning. He has no complaints and no issues overnight. His BP has improved this morning. He states he did have back pain after his kidney biopsy yesterday OBJECTIVE PHYSICAL EXAMINATION: VITAL SIGNS: Please see below. GENERAL APPEARANCE: Laying in bed, appears stated age, no acute distress, calm, cooperative HEENT: EOMI, PERRLA, neck is supple with no thyromegaly or lymphadenopathy RESPIRATORY: Lungs are clear to auscultation bilaterally with no adventitious breath sounds appreciated CARDIOVASCULAR: no JVD, RRR, no murmurs/rubs/gallops, normal S1 and S2 ABDOMEN: +BS, soft, nontender to palpation in all four quadrants, no masses/organomegaly EXTREMITIES: no clubbing, cyanosis or edema noted NEUROLOGICAL: CN 2-12 intact, No obvious focal deficits PSYCHIATRIC: normal mood/affect Skin: No rashes or ulcers appreciated, warm and well-perfused LN: No significant cervical or inguinal lymphadenopathy LABORATORY DATA, IMAGING STUDIES, MICROBIOLOGY: Please see below. DVT prophylaxis ordered?: Eliquis ASSESSMENT AND PLAN: This is a 29 YO M with history of type 1 diabetes, multi- drug resistent hypertension and CKD of unknown etiology who presented to the hospital with hyperglycemia found to have nephrotic range proteinuria. PROBLEMS: 1. Multi-drug resistent uncontrolled hypertension: BP better managed -Continue Norvasc, Lisinopril, Hydralazine, Coreg 2. Nephrotic range proteinuria: -Patient was found to have 10g protein in 24-hr urine specimen -Nephrology consulted. Pending renal biopsy. Appreciate further recommendations -Serologic workup still pending -Continue Atorvastatin, Eliquis for prevention of thrombotic event 3. DM1: -Continue Levemir (increased to 15U) + SSI with hypoglycemic protocol 4. Anemia: likely chronic, due to CKD -Continue Aranesp, Iron supplements DISPOSITION: Pending further workup, possible dc within 48h Attending attestation: I evaluated and examined the patient in person; I discussed the care with Resident in detail and agree with the plan above. VS, I&O, 24H, Fishbone Vital Signs/I&O Vital Signs Date Time Temp Pulse Resp B/P (MAP) Pulse Ox O2 Delivery O2 Flow Rate FiO2 11/03/19 08:00 151/94 11/03/19 07:59 97 11/03/19 05:19 99.7 18 11/02/19 20:24 97 Room Air 11/02/19 13:45 2 I&O- Last 24 Hours up to 6 AM 11/03/19 06:00 Intake Total 1520 ml Output Total 0 ml Balance 1520 ml Laboratory Data 24H LABS Laboratory Tests 2 11/02/19 14:34: Bedside Glucose (Misc Panel) 237H 11/02/19 16:40: Bedside Glucose (Misc Panel) 214H 11/02/19 20:26: Bedside Glucose (Misc Panel) 276H 11/03/19 05:57: Nucleated Red Blood Cells % (auto) 0.0, Anion Gap 5L, Glomerular Filtration Rate 41.9L, Calcium Level 7.6L 11/03/19 11:37: Bedside Glucose (Misc Panel) 189H CBC/BMP Laboratory Tests 11/03/19 05:57 Microbiology Microbiology 10/27/19 Urine Culture - Final, Complete GME ATTESTATION GME ATTESTATION My faculty preceptor for this patient encounter was physically present during the encounter and was fully available. All aspects of the patient interview, examination, medical decision making process, and medical care plan development were reviewed and approved by the faculty preceptor. The faculty preceptor is aware and concurs with the plan as stated in the body of this note and will attest to such by his/her cosignature. TRIXIE LOCO MD November 03, 2019 12:40 JOHNATHON PETE MD November 03, 2019 20:06
[2019-11-03 14:46] VITALS: BP 149/94
[2019-11-03] MEDS ORDERED: LEVEMIR (INSULIN DETEMIR) 1 UNITS/0.01ML SC SCH (21:00)
[2019-11-03 22:00] VITALS: BP 150/95
[2019-11-03] MEDS: ATORVASTATIN 20 MG TAB PO SCH (22:33)
[2019-11-04 06:00] VITALS: BP 145/95
[2019-11-04 06:10] LABS: HEMOGLOBIN 8.7 g/dl (13.5-17.5); MEAN CORPUSCULAR HEMOGLOBIN 30.3 pg (27.0-33.0); MEAN CORPUSCULAR HGB CONC 33.5 g/dl (32.0-36.5); MEAN CORPUSCULAR VOLUME 90.6 fl (80.0-96.0); PLATELET COUNT, AUTOMATED 332 10^3/uL (150-450); RED BLOOD COUNT 2.87 10^6/uL (4.30-6.10); WHITE BLOOD COUNT 13.8 10^3/uL (4.0-10.0)
[2019-11-04 06:30] LABS: CALCIUM LEVEL 7.9 MG/DL (8.5-10.1); CREATININE FOR GFR 2.54 MG/DL (0.70-1.30); GLOMERULAR FILTRATION RATE 39.4 (>60); POTASSIUM SERUM 3.9 MEQ/L (3.5-5.1)
[2019-11-04] MEDS: HumaLOG INSULIN (NovoLOG) PER UNIT SC SCH ×2 (07:30→12:08)
--- NOTE | 2019-11-04 07:44 | IPN ---
DATE OF SERVICE: 11/02/2019 SUBJECTIVE: The patient was seen and examined at the bedside today morning. The patient's blood pressures are still elevated. His carvedilol dose was increased. Renal function is continuously deteriorating. His creatinine has bumped up to 2.4 now. He otherwise denies any complaints. He denies any headaches, chest pain or shortness of breath. OBJECTIVE: Vital Signs: Temperature is 98.1 degrees Fahrenheit, blood pressure 169/97, pulse is 81, respiratory rate of 18, saturating 99% on room air. Intake and Output: He has had since overnight. Weight in the bed scale is 104.1 kg, which is stable. PHYSICAL EXAMINATION: General: The patient is awake, alert, oriented x3, laying in bed, in no apparent distress. Head and Neck Exam: Extraocular muscles intact. Pupils equally round and reactive to light. Mucous membranes are moist. Neck is supple. There is no jugular venous distention (JVD). Cardiovascular: S1, S2, tachycardia. No edema of the bilateral lower extremities. Respiratory: Chest is clear to auscultation bilaterally. Bilateral equal air entry. No rales or rhonchi. Abdomen: Soft. Positive bowel sounds. Nontender. No organomegaly. Musculoskeletal: No clubbing or cyanosis. Pulses are 2+. INSOLE TACK PULLER HAND: No focal deficit. Power is 5/5 in all extremities. LAB REVIEW: CBC showed WBC of 10.4, hemoglobin 9.7, platelets are 302. BMP showed sodium 139, potassium 4.2, chloride 107, bicarb 23, BUN 18, creatinine 2.4 and it was 2.2 yesterday, phosphorus 4.1, magnesium 1.8. Immunology: Autoimmune serology is pending. CURRENT INPATIENT MEDICATIONS: The patient's medications were all reviewed by me. He has been started on Lipitor. I have decreased the dose to 20 mg at bedtime. He will also be started on Eliquis 2.5 mg by mouth twice a day. His Coreg dose has been increased to 12.5 mg by mouth twice a day. Heparin subcutaneous has been stopped. The patient was refusing the heparin anyways. He continues to be on lisinopril 40 mg daily. No other change in the medications today as compared with yesterday. ASSESSMENT/PLAN: 1. Acute kidney injury superimposed on chronic kidney disease stage III. The patient's creatinine has been rising for the last 2 days. He is on full dose of lisinopril 40 mg daily. Because of nephrotic range proteinuria, I will continue the lisinopril for now. However, if the creatinine keeps on rising, the dose of SHAHRAM inhibitor will be decreased. 2. Nephrotic range proteinuria. Autoimmune serology is still pending. He has more than 10 grams of protein and he has albuminemia. Continue current dose of SHAHRAM inhibitor. Statins have been started because of hyperlipidemia and because of risk of deep vein thrombosis (DVT) and pulmonary embolism (PE) he is being started on Eliquis tomorrow morning. The patient is going to get CT guided renal biopsy done today. 3. Hypertension. Blood pressure is still uncontrolled. Hydralazine continues to be 50 mg three times a day. Continue lisinopril 40 mg daily. Continue amlodipine 10 mg daily. Coreg dose has been increased to 12.5 mg by mouth twice a day. 4. Anemia and chronic kidney disease. The patient is getting Aranesp. He continues to be on oral iron. Hemoglobin level is improving. 5. Insulin-dependent diabetes. The patient continues to be on Levemir and insulin sliding scale. He was noncompliant with insulin as outpatient.
[2019-11-04] MEDS ORDERED: lisinopriL 20 MG TAB PO SCH (09:00)
[2019-11-04] MEDS: **hydrALAZINE** 50 MG TAB PO SCH (09:57)
[2019-11-04] MEDS: MAGNESIUM OXIDE 400 MG TAB (MAG-OX) PO SCH (09:57)
[2019-11-04] MEDS: FERROUS GLUCONATE 324 MG TAB PO SCH (09:59)
[2019-11-04] MEDS: amLODIPine 10 MG TAB PO SCH (09:59)
[2019-11-04] MEDS: APIXABAN 2.5 MG TAB (ELIQUIS) PO SCH (10:00)
[2019-11-04] MEDS: CARVedilol 12.5 MG TAB PO SCH (10:00)
[2019-11-04] MEDS ORDERED: lisinopriL 10 MG TAB PO ONE (11:30)
[2019-11-04 11:35] VITALS: BP 120/74
[2019-11-04] MEDS ORDERED: HYDR50TA PO (11:55)
[2019-11-04] MEDS ORDERED: AMLO10TA5 PO (11:55)
[2019-11-04] MEDS ORDERED: LISI10TA4 PO (11:55)
[2019-11-04] MEDS ORDERED: ATOR1TAB21 PO (11:55)
[2019-11-04] MEDS ORDERED: ELIQ2.5T PO (11:55)
[2019-11-04] MEDS ORDERED: CARV12.5 PO (11:55)
[2019-11-04] MEDS ORDERED: MAG400TA PO (11:55)
[2019-11-04] MEDS ORDERED: VENTAER INH (11:55)
[2019-11-04] MEDS ORDERED: HUMU1INJ SC (11:55)
[2019-11-04] MEDS ORDERED: FERR32TA PO (11:55)
--- NOTE | 2019-11-04 12:04 | IPN ---
DATE OF SERVICE: 11/03/2019 SUBJECTIVE: The patient was seen and examined at the bedside today morning. He is afebrile, hemodynamically stable. He got CT-guided left renal biopsy done yesterday. He denies any pain at the biopsy site or any hematuria. Renal function is stable. Creatinine has plateaued at 2.4 now. Blood pressure is still slightly higher than target but better than yesterday. The patient denies any active complaints. OBJECTIVE: VITAL SIGNS: Temperature is 99.7 degrees Fahrenheit, blood pressure 151/94, pulse is 97, respiratory rate of 18, saturating 97% on room air. INTAKE/OUTPUT: The urine output exactly is not recorded. Weight in the bed scale is stable at 104.3 kg. PHYSICAL EXAMINATION: GENERAL: The patient is awake, alert, oriented times three, laying in bed, in no apparent distress. HEAD/NECK EXAM: Extraocular muscles intact. Pupils equally round and reactive to light. Mucous membranes are moist. Neck is supple. There is no jugular venous distention (JVD). CARDIOVASCULAR: The patient has dextrocardia, S1, S2, regular rate. No edema of the bilateral lower extremities. RESPIRATORY: Chest is clear to auscultation bilaterally. Bilateral equal air entry. No rales or rhonchi. ABDOMEN: Soft. Positive bowel sounds. Nontender. No organomegaly. The patient has dressing on the left renal biopsy site. It is not tender at this time. MUSCULOSKELETAL: No clubbing or cyanosis. Pulses are 2+. CENTRAL NERVOUS SYSTEM (SUCTION WORKER): No focal deficit. Power is 5/5 in all extremities. LAB REVIEW: CBC showed WBC 7.6, hemoglobin 8.4, platelets of 273. BMP showed sodium 140, potassium 4.3, chloride 110, bicarbonate 25, BUN 20, creatinine is 2.4, it was 2.4 yesterday as well. Immunology is still pending. Hep B and C serology is negative. CURRENT INPATIENT MEDICATIONS: The patient's medications were all reviewed by myself. He has been started on Eliquis 2.5 mg by mouth twice a day, Lipitor 20 mg at bedtime. Coreg dose remains 12.5 mg by mouth twice a day. Insulin Levemir dose has been increased to 15 units at bedtime, and no other change in the medications today as compared with yesterday. ASSESSMENT/PLAN: 1. Acute kidney injury superimposed on chronic kidney disease, stage III. The patient has bump in creatinine because of high dose of angiotensin-converting enzyme (SHAHRAM) inhibitor. However, creatinine has plateaued. I would continue the current antihypertensive regimen. 2. Nephrotic range proteinuria. Left-sided CT-guided renal biopsy was done yesterday. Continue current dose of statin and lisinopril. Continue amlodipine. Autoimmune serology result is still pending. 3. Hypertension with chronic kidney disease. Continue current dose of Coreg 12.5 mg by mouth twice a day, hydralazine 50 mg three times a day, lisinopril 40 mg daily, and amlodipine 10 mg daily. 4. Hyperlipidemia. Continue current dose of rosuvastatin 20 mg at bedtime. 5. Anemia in chronic kidney disease. Continue current dose of Aranesp once a week. 6. Insulin dependent diabetes. Levemir dose has been increased by hospitalist team, and he continues to be on insulin sliding scale as well. Avoid use of metformin at this time. DISPOSITION: We are awaiting the prelim report for renal biopsy. If it comes back as diabetic nephropathy, then patient will be discharged and followed up within the clinic as outpatient.
[2019-11-04 12:08] VITALS: BP 120/74
--- NOTE | 2019-11-04 18:03 | DS.PDOC ---
Discharge Summary General Date of Admission Oct 27, 2019 at 17:38 Date of Discharge November 04, 2019 Attending Physician: JOHNATHON PETE MD Specialist/Consultants Involve: FRANCINE CORBIN MD Discharge Summary PROCEDURES PERFORMED DURING STAY: CT-guided kidney biopsy ADMITTING DIAGNOSES: 1. Acute on chronic renal failure 2. Type 1 DM 3. Normocytic anemia 4. Hypertensive urgency DISCHARGE DIAGNOSES: 1. Nephrotic syndrome likely 2/2 Diabetic glomerulosclerosis 2. Hypertensive nephropathy 3. DM1 4. Asthma COMPLICATIONS/CHIEF COMPLAINT: Arf,Diabetes Type 1,Uncontrolled Diabetes Mellitus. HISTORY OF PRESENT ILLNESS: Patient is a 29 year old male presenting with chief complaint of elevated blood glucose. Patient was brought in by police when he asked to check a blood glucose and it came back in the 500s so EMS was called. He states he has been in his normal state of health and denies any complaints now or in the past couple days. He states at baseline he has poor PO intake having 1 meal a day with a little water, he does not regularly take his insulin and only takes it when he feels like his glucose is high. He uses short acting insulin he obtained on discharge from his incarceration in 2018 and attempts to follow a consistent carb diet at home to avoid taking the insulin. In the ED he was found to have elevated creatinine with unknown baseline, elevated glucose, with renal US showing mild bilateral hydronephrosis. He was given insulin and 3 liters of fluid with repeat creatinine of 2.8 and glucose of 143. HOSPITAL COURSE: The patient was found to have acute renal failure and multi- drug resistant hypertension. Renal US was negative any acute process. The patient was started on Amlodipine, Lisinopril, Hydrazaline and Coreg with suf ficient control of his blood pressure. The patient had not been taking insulin regularly at home for his DM1 and he was started on a regimen of sliding scale insulin with plans to transition to levemir. His hgb was low at 9.2, normocytosis, which was surmised as anemia of chronic kidney disease. The patient was found to have severe proteinuria of 10g protein in 24 urine collection. The patient underwent a CT-guided kidney biopsy with preliminary results: "Advanced nodular diabetic glomerulosclerosis. Electron microscopy pending for complete podocyte information. Chronic active interstitial nephritis likely drug induced." The patient's renal function somewhat plateaued with Cr 2.5. He was discharged home on medically optimized regimen of ACEi, BB, Statin, Eliquis, Insulin and oral iron replacement. DISCHARGE MEDICATIONS: Please see below. ALLERGIES: Please see below. PHYSICAL EXAMINATION ON DISCHARGE: GENERAL APPEARANCE: Laying in bed, appears stated age, no acute distress, calm, cooperative HEENT: EOMI, PERRLA, neck is supple with no thyromegaly or lymphadenopathy RESPIRATORY: Lungs are clear to auscultation bilaterally with no adventitious breath sounds appreciated CARDIOVASCULAR: no JVD, RRR, no murmurs/rubs/gallops, normal S1 and S2 ABDOMEN: +BS, soft, nontender to palpation in all four quadrants, no masses/organomegaly EXTREMITIES: no clubbing, cyanosis or edema noted NEUROLOGICAL: CN 2-12 intact, No obvious focal deficits PSYCHIATRIC: normal mood/affect Skin: No rashes or ulcers appreciated, warm and well-perfused LN: No significant cervical or inguinal lymphadenopathy LABORATORY DATA: Please see below. IMAGING: CHEST, SINGLE VIEW: Single view of the chest is performed. There is no acute infiltrate. The patient has situs inversus. The heart and aortic arch project on the right side of the chest. The liver is in the left upper quadrant. The mediastinal scan is unremarkable. The heart is not enlarged. The visualized osseous structures are unremarkable. IMPRESSION: No acute pulmonary disease. Situs inversus. RENAL US: Clinical: Acute renal failure. Technique: Real time bowie scale and color Doppler evaluation using curved array transducer. Findings: Right kidney is normal in reniform shape measuring 11.3 x 5.7 x 6.6 cm (RI 0.62) and demonstrates increased echotexture along with mild hydronephrosis. No obvious renal calculi, cyst or mass lesion identified. Left kidney is normal in reniform shape measuring 12.3 x 6.7 x 7.8 cm (RI 0.70) and demonstrates increased echotexture along with mild hydronephrosis. No obvious renal calculi, cyst or mass lesion identified. Bladder appears normal and bilateral ureteral jets are identified. Impression: Increased renal echotexture suggesting underlying medical renal disease along with bilateral mild hydronephrosis. PROGNOSIS: fair ACTIVITY: [As tolerated]. DIET: consistent carbohydrate DISCHARGE PLAN: Follow up with Nephrology, establish care with PCP DISPOSITION: 01 Home, Self-Care. DISCHARGE INSTRUCTIONS: 1. Follow up with Nephrology, establish care with PCP ITEMS TO FOLLOWUP ON ON OUTPATIENT: none DISCHARGE CONDITION: [Stable]. TIME SPENT ON DISCHARGE: Greater than 35 minutes. Attending attestation: I evaluated and examined the patient in person; I discussed the care with Resident in detail and agree with the plan above. Vital Signs/I&Os Vital Signs Date Time Temp Pulse Resp B/P (MAP) Pulse Ox O2 Delivery O2 Flow Rate FiO2 11/04/19 12:08 120/74 11/04/19 11:35 86 98 11/04/19 06:00 98.7 18 Room Air 11/02/19 13:45 2 I&O- Last 24 Hours up to 6 AM 11/04/19 06:00 Intake Total 1980 ml Balance 1980 ml Laboratory Data Labs 24H Laboratory Tests 2 11/03/19 22:09: Bedside Glucose (Misc Panel) 254H 11/04/19 05:03: Bedside Glucose (Misc Panel) 84 11/04/19 05:35: Bedside Glucose (Misc Panel) 117H 11/04/19 05:49: Nucleated Red Blood Cells % (auto) 0.0, Anion Gap 8, Glomerular Filtration Rate 39.4L, Calcium Level 7.9L 11/04/19 11:22: Bedside Glucose (Misc Panel) 282H 11/04/19 12:26: CBC/BMP Laboratory Tests 11/04/19 05:49 FSBS Laboratory Tests Test 11/03/19 22:09 11/04/19 05:03 11/04/19 05:35 11/04/19 11:22 Range/Units Bedside Glucose (Misc Panel) 254 84 117 282 70-105 MG/DL Microbiology Microbiology 10/27/19 Urine Culture - Final, Complete Discharge Medications Scheduled Amlodipine Besylate (Amlodipine Besylate) 10 Mg Tablet, 10 MG PO DAILY Apixaban (Eliquis) 2.5 Mg Tablet, 2.5 MG PO BID Atorvastatin Calcium (Atorvastatin Calcium) 20 Mg Tablet, 20 MG PO QHS Carvedilol (Carvedilol) 12.5 Mg Tablet, 12.5 MG PO BID Ferrous Gluconate (Ferrous Gluconate) 324 Mg Tablet, 324 MG PO DAILY Hydralazine HCl (Hydralazine HCl) 50 Mg Tablet, 50 MG PO TID Insulin NPH Hum/Reg Insulin Hm (Humulin 70/30 Kwikpen) 100 Unit/1 Ml Insuln.pen, 8 UNITS SC BID Lisinopril (Lisinopril) 10 Mg Tablet, 30 MG PO DAILY Magnesium Oxide (Magnesium Oxide) 400 Mg Tablet, 400 MG PO DAILY Scheduled PRN Albuterol Sulfate (Ventolin Hfa) 18 Gm Hfa.aer.ad, 2 PUFF INH Q6HP PRN for SHORTNESS OF BREATH Allergies Coded Allergies: SEASONAL ALLERGIES (Verified Allergy, Unknown, 09/01/18) GME ATTESTATION GME ATTESTATION My faculty preceptor for this patient encounter was physically present during the encounter and was fully available. All aspects of the patient interview, examination, medical decision making process, and medical care plan development were reviewed and approved by the faculty preceptor. The faculty preceptor is aware and concurs with the plan as stated in the body of this note and will attest to such by his/her cosignature. TRIXIE LOCO MD November 04, 2019 18:03 JOHNATHON PETE MD November 06, 2019 16:14
--- NOTE | 2019-11-05 06:44 | IPN ---
DATE OF SERVICE: 11/04/2019 SUBJECTIVE: The patient was seen and examined at the bedside today morning. He is afebrile, hemodynamically stable. His blood pressure is well controlled. Renal function is also stable, creatinine is slightly bumped up to 2.5 today. All the serum immunology results are pending. OBJECTIVE: Vital Signs: Temperature is 98.7 degrees Fahrenheit, blood pressure 120/74, pulse is 86, respiratory rate of 18, saturating 96% on room air. Intake and Output: There is no urine output recorded. Weight in the bed scale is 103.6 kg. PHYSICAL EXAMINATION: General: The patient is awake, alert, oriented x3, laying in bed, in no apparent distress. Head and Neck Exam: Extraocular muscles intact. Pupils equally round and reactive to light. Mucous membranes are moist. Neck is supple. There is no jugular venous distention (JVD). Cardiovascular: S1, S2. Regular rate. He has dextrocardia and heart sounds are more pronounced on the right side. There is no edema of the bilateral lower extremities. Respiratory: Chest is clear to auscultation bilaterally. Bilateral equal air entry. No rales or rhonchi. Abdomen: Soft. Positive bowel sounds. Nontender. No organomegaly. Musculoskeletal: No clubbing or cyanosis. Pulses are 2+. CAUSTIC PUMP OPERATOR: No focal deficit. Power is 5/5 in all extremities. LAB REVIEW: CBC showed a WBC of 13.8, hemoglobin 8.7, platelets are 332. BMP showed sodium 137, potassium 3.9, chloride 106, bicarb 23, BUN 19, creatinine is 2.5, calcium 7.9. Immunology is pending. RENAL PATHOLOGY: I got a call from the pathology department at [facility] in [place], [place]. Initial prelim report showed the patient has advanced diabetic nodular glomerular sclerosis. Electron microscopic result is pending, so there is no comment on the renal portal sites at this time. The patient also has chronic active interstitial nephritis with some acute tubular injury, most likely induced by some drugs. CURRENT INPATIENT MEDICATIONS: The patient's medications were all reviewed by me. His lisinopril dose was decreased to 30 mg by mouth daily. No other change in the medications today as compared with yesterday. ASSESSMENT/PLAN: 1. Acute kidney injury superimposed on chronic kidney disease stage III. The patient now has biopsy-proven diabetic nodular glomerular sclerosis secondary to chronic noncompliance with his insulin. Okay to continue the SHAHRAM inhibitors, but dose has been decreased because the creatinine was slightly going up. The rest of the management will be done as outpatient. 2. Nephrotic range proteinuria. As per prelim results mentioned above, the patient has diabetic glomerular sclerosis. He does have some chronic active interstitial nephritis, most likely related to drug abuse. The patient was not taking his medications as outpatient. However, I would not give any steroids to the patient at this time. 3. Hypertension with chronic kidney disease. Continue current dose of Coreg 12.5 mg by mouth twice a day, hydralazine 50 mg by mouth three times a day and amlodipine 10 mg daily. Lisinopril dose has been decreased to 30 mg daily because of rise in the creatinine. 4. Hyperlipidemia. Continue current dose of rosuvastatin 20 mg at bedtime. 5. Anemia in chronic kidney disease. Continue current dose of Aranesp and oral iron. 6. Insulin-dependent diabetes. The patient was taking insulin 70/30 at home. If he is discharged, he can be discharged probably on the 70/30 dose because I do not believe the patient is going to check his sugar levels at home and give himself insulin sliding scale with meals. 7. Disposition. The patient is okay to be discharged from a nephrology standpoint. He needs to follow up with nephrology within 2 weeks after discharge from the hospital.
[2019-11-05] MEDS ORDERED: lisinopriL 10 MG TAB PO SCH (09:00)
[2019-11-07 00:06] LABS: C-PEPTIDE 3.5 ng/mL (1.1-4.4); ISLET CELL ANTIBODIES Negative (Neg:<1:1)
[2019-11-09 14:07] LABS: ANCA-ATYPICAL <1:20 titer (Neg:<1:20); ANTI DS-DNA AB Negative (Negative); ANTI-GLOMERULAR BASEMENT MEMB 3 units (0-20); ANTINUCLEAR ANTIBODIES DIRECT Negative (Negative); COMPLEMENT TOTAL (CH50) 59 U/mL (>41); CYTOPLASMIC NEUTROP AB ANCA-C <1:20 titer (Neg:<1:20); PERINUCLEAR AB ANCA-P <1:20 titer (Neg:<1:20); PR3 ANTIPROTEINASE ANTIBODIES <3.5 U/mL (0.0-3.5)
== END 2019-11-04 12:31 | DRG 468 ==
LOC: M ED 10:46 → EDBD 10:46 → M ED INP 17:38 → ENRESERV 18:10 → M MS5PR 20:48
PROVIDERS: ADMIT Internal Medicine; ATTEND Internal Medicine
PROC: 0TB13ZX Excision of Left Kidney, Percutaneous Approach, Diagnostic (ICD-10-PCS; principal; 2019-11-02 13:00)
DX: E10.22 Type 1 diabetes mellitus with diabetic chronic kidney disease (principal); N17.9 Acute kidney failure, unspecified; E46 Unspecified protein-calorie malnutrition; N18.3 Chronic kidney disease, stage 3 (moderate); E10.65 Type 1 diabetes mellitus with hyperglycemia; J45.909 Unspecified asthma, uncomplicated; I12.9 Hypertensive chronic kidney disease with stage 1 through stage 4 chronic kidney disease, or unspecified chronic kidney disease; F17.210 Nicotine dependence, cigarettes, uncomplicated; F12.10 Cannabis abuse, uncomplicated; Z83.3 Family history of diabetes mellitus; D63.1 Anemia in chronic kidney disease; Z79.4 Long term (current) use of insulin

== ENCOUNTER → 2019-11-26 | Outpatient (CLI) | payer OTHER ==
[~2019-11-26] MED LIST changes: +AMLO10TA5 PO; +ATOR1TAB21 PO; +CARV12.5 PO; +ELIQ2.5T PO; +FERR32TA PO; +HUMA100I3 SC; +HUMU1INJ SC; +HYDR50TA PO; +LISI10TA4 PO; +MAG400TA PO; +VENTAER INH
[2019-11-26 18:39] LABS: BASO # 0.1 10^3/uL (0.0-0.2); BASO % 1.1 % (0.0-1.0); EOS # 0.1 10^3/uL (0.0-0.5); EOS % 1.4 % (0.0-3.0); HEMATOCRIT 25.9 % (42.0-52.0); HEMOGLOBIN 8.3 g/dl (13.5-17.5); LYMPH # 2.1 10^3/uL (1.5-5.0); LYMPH % 24.9 % (24.0-44.0); MEAN CORPUSCULAR HEMOGLOBIN 29.2 pg (27.0-33.0); MEAN CORPUSCULAR VOLUME 91.2 fl (80.0-96.0); MONO # 0.8 10^3/uL (0.0-0.8); MONO % 8.9 % (0.0-5.0); NEUTROPHILS # 5.3 10^3/uL (1.5-8.5); NEUTROPHILS % 63.5 % (36.0-66.0); PLATELET COUNT, AUTOMATED 311 10^3/uL (150-450); RED BLOOD COUNT 2.84 10^6/uL (4.30-6.10)
[2019-11-26 18:51] LABS: BACTERIA, URINE AUTO NEGATIVE (NEGATIVE); BILIRUBIN, URINE AUTO NEGATIVE (NEGATIVE); BLOOD, URINE BLOOD 1+ (NEGATIVE); COLOR, URINE YELLOW (YELLOW); GLUCOSE, URINE (UA) AUTO 1+ mg/dL (NEGATIVE); KETONE, URINE AUTO NEGATIVE (NEGATIVE); LEUKOCYTE ESTERASE, URINE AUTO TRACE (NEGATIVE); NITRITE, URINE AUTO NEGATIVE (NEGATIVE); PROTEIN, URINE AUTO 3+ mg/dL (NEGATIVE); RBC, URINE AUTO 5 /HPF (0-3); SPECIFIC GRAVITY URINE AUTO 1.013 (1.002-1.035); SQUAMOUS EPITHELIAL CELL UR AU 0 /HPF (0-6); UROBILINOGEN, URINE AUTO 0.2 mg/dL (0.0-2.0); WBC, URINE AUTO 17 /HPF (0-3)
[2019-11-26 20:01] LABS: CHOLESTEROL RISK RATIO 4.125 (<5); CREATININE FOR GFR 2.79 MG/DL (0.70-1.30); GLOMERULAR FILTRATION RATE 35.4 (>60); MAGNESIUM LEVEL 1.7 MG/DL (1.8-2.4); PHOSPHORUS LEVEL 4.6 MG/DL (2.5-4.9); POTASSIUM SERUM 5.7 MEQ/L (3.5-5.1); PTH INTACT 134.8 PG/ML (18.5-88.0); URIC ACID 5.3 MG/DL (3.5-7.2)
[2019-11-27 09:37] LABS: APPEARANCE, URINE HAZY (CLEAR)
[2019-11-27 09:38] LABS: WHITE BLOOD COUNT 8.4 10^3/uL (4.0-10.0)
== END ==
LOC: M WUC 13:24
PROVIDERS: ATTEND Internal Medicine Nephrology
DX: N04.0 Nephrotic syndrome with minor glomerular abnormality (principal); E11.22 Type 2 diabetes mellitus with diabetic chronic kidney disease

== ENCOUNTER → 2019-12-17 | Outpatient (CLI) | payer OTHER ==
[~2019-12-17] MED LIST changes: -AMLO10TA5 PO; +AMLO1TAB25 PO; +COZA50TA PO; +ESOM1CAP5 PO; +FERR324T2 PO; +INSUHUMDS SC; +LISI10TA22 PO; -LISI10TA4 PO; -MAG400TA PO; +MAGN400T35 PO; -METF-700 PO; +METF-818 PO; +PRED50TA PO; +TRIA37.53 PO
[2019-12-17 16:37] LABS: APPEARANCE, URINE CLEAR (CLEAR); BACTERIA, URINE AUTO NEGATIVE (NEGATIVE); BILIRUBIN, URINE AUTO NEGATIVE (NEGATIVE); BLOOD, URINE BLOOD NEGATIVE (NEGATIVE); COLOR, URINE STRAW (YELLOW); GLUCOSE, URINE (UA) AUTO 1+ mg/dL (NEGATIVE); KETONE, URINE AUTO NEGATIVE (NEGATIVE); LEUKOCYTE ESTERASE, URINE AUTO NEGATIVE (NEGATIVE); NITRITE, URINE AUTO NEGATIVE (NEGATIVE); PROTEIN, URINE AUTO 2+ mg/dL (NEGATIVE); RBC, URINE AUTO 3 /HPF (0-3); SPECIFIC GRAVITY URINE AUTO 1.008 (1.002-1.035); SQUAMOUS EPITHELIAL CELL UR AU 0 /HPF (0-6); UROBILINOGEN, URINE AUTO 0.2 mg/dL (0.0-2.0); WBC, URINE AUTO 4 /HPF (0-3)
[2019-12-17 16:44] LABS: BASO # 0.1 10^3/uL (0.0-0.2); BASO % 0.5 % (0.0-1.0); EOS # 0.2 10^3/uL (0.0-0.5); EOS % 1.5 % (0.0-3.0); HEMATOCRIT 26.1 % (42.0-52.0); HEMOGLOBIN 8.5 g/dl (13.5-17.5); LYMPH # 2.1 10^3/uL (1.5-5.0); LYMPH % 18.1 % (24.0-44.0); MEAN CORPUSCULAR HEMOGLOBIN 29.6 pg (27.0-33.0); MEAN CORPUSCULAR HGB CONC 32.6 g/dl (32.0-36.5); MEAN CORPUSCULAR VOLUME 90.9 fl (80.0-96.0); MONO # 0.8 10^3/uL (0.0-0.8); MONO % 6.6 % (0.0-5.0); NEUTROPHILS # 8.5 10^3/uL (1.5-8.5); NEUTROPHILS % 72.3 % (36.0-66.0); PLATELET COUNT, AUTOMATED 305 10^3/uL (150-450); RED BLOOD COUNT 2.87 10^6/uL (4.30-6.10); WHITE BLOOD COUNT 11.8 10^3/uL (4.0-10.0)
[2019-12-17 16:55] LABS: ALBUMIN 2.5 GM/DL (3.2-5.2); CALCIUM LEVEL 8.1 MG/DL (8.5-10.1); CREATININE FOR GFR 2.89 MG/DL (0.70-1.30); PERCENT SATURATION 10.6 % (19.7-50.0); PHOSPHORUS LEVEL 4.9 MG/DL (2.5-4.9); URIC ACID 4.6 MG/DL (3.5-7.2)
[2019-12-17 17:25] LABS: HEMOGLOBIN A1c 11.9 %
== END ==
LOC: M WUC 14:14
PROVIDERS: ATTEND Internal Medicine Nephrology
DX: N04.0 Nephrotic syndrome with minor glomerular abnormality (principal); D63.1 Anemia in chronic kidney disease; E11.22 Type 2 diabetes mellitus with diabetic chronic kidney disease; N19 Unspecified kidney failure

== ENCOUNTER 2019-12-29 13:00 | Inpatient (IN) | payer OTHER ==
[~2019-12-29] VITALS: Ht 180.3 cm; Wt 93.9 kg
[~2019-12-29 13:00] MED LIST changes: -COZA50TA PO; -ESOM1CAP5 PO; -FERR324T2 PO; -INSUHUMDS SC; -LISI10TA22 PO; +LISI10TA4 PO; +MAG400TA PO; -MAGN400T35 PO; -PRED50TA PO; -TRIA37.53 PO
[2019-12-29 14:52] VITALS: BP 188/102
[2019-12-29 15:28] LABS: BASO % 0.3 % (0.0-1.0); HEMATOCRIT 24.8 % (42.0-52.0); HEMOGLOBIN 8.3 g/dl (13.5-17.5); LYMPH # 0.7 10^3/uL (1.5-5.0); MEAN CORPUSCULAR HEMOGLOBIN 29.7 pg (27.0-33.0); MEAN CORPUSCULAR HGB CONC 33.5 g/dl (32.0-36.5); MEAN CORPUSCULAR VOLUME 88.9 fl (80.0-96.0); MONO # 0.1 10^3/uL (0.0-0.8); MONO % 0.4 % (0.0-5.0); NEUTROPHILS # 13.9 10^3/uL (1.5-8.5); PLATELET COUNT, AUTOMATED 359 10^3/uL (150-450); RED BLOOD COUNT 2.79 10^6/uL (4.30-6.10); WHITE BLOOD COUNT 14.8 10^3/uL (4.0-10.0)
[2019-12-29] MEDS ORDERED: HumuLIN R (REGULAR) INSULIN (NovoLIN R) **100U/ML** PER UNIT IV STA ×3 (16:16→21:05)
[2019-12-29 16:22] LABS: ALBUMIN 2.4 GM/DL (3.2-5.2); BILIRUBIN,TOTAL 0.1 MG/DL (0.2-1.0); CALCIUM LEVEL 8.8 MG/DL (8.5-10.1); CREATININE FOR GFR 3.26 MG/DL (0.70-1.30); GLOMERULAR FILTRATION RATE 29.6 (>60); POTASSIUM SERUM 7.6 MEQ/L (3.5-5.1)
[2019-12-29] MEDS ORDERED: ELIQ2.5T PO (16:28)
[2019-12-29] MEDS ORDERED: TRIA37.53 PO (16:28)
[2019-12-29] MEDS ORDERED: LANTINJ4 SC (16:28)
[2019-12-29] MEDS ORDERED: INSUHUMDS SC (16:28)
[2019-12-29] MEDS ORDERED: ATOR1TAB21 PO (16:28)
[2019-12-29] MEDS ORDERED: FERR324T2 PO (16:28)
[2019-12-29] MEDS ORDERED: CARV12.5 PO (16:28)
[2019-12-29] MEDS ORDERED: ESOM1CAP5 PO (16:28)
[2019-12-29] MEDS ORDERED: VENTAER INH (16:28)
[2019-12-29] MEDS ORDERED: AMLO1TAB25 PO (16:28)
[2019-12-29] MEDS ORDERED: PRED50TA PO (16:28)
[2019-12-29] MEDS ORDERED: LISI10TA4 PO (16:28)
[2019-12-29] MEDS ORDERED: ALBUTEROL SULFATE 2.5 MG/0.5 ML INH NEB SOLN NEB ONE (16:30)
[2019-12-29] MEDS ORDERED: CALCIUM CHLORIDE 10% 1 GM in D5W 100 ML IV SCH (16:30)
[2019-12-29] MEDS ORDERED: hydrALAZINE 20MG/ML 1ML VIAL (J0360 PER 20MG) IV ONE (17:00)
[2019-12-29] MEDS ORDERED: SOD POLYSTYRENE SULFONATE SUSP 15 GM/60 ML UD PO ONE (17:00)
[2019-12-29] MEDS ORDERED: CALCIUM CHLORIDE 10% 1 GM/10 ML SYR As Ordered ONE (17:06)
--- NOTE | 2019-12-29 17:06 | HPEPDOC ---
General Date of Admission Dec 29, 2019 at 14:19 Date of Service: Dec 29, 2019 Chief Complaint The patient is a 29-year-old male admitted with a reason for visit of Nephrotic Syndrome. Source: Patient History of Present Illness 29 year old male incarcerated [facility] with PMH of Nephrotic syndrome recently diagnosed 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 Patient says on the days of prednisone sugars read high. He also complained of bilateral leg swelling reaching upto the knees with difficulty in bending the knees. He says his legs feel heavy and painful around the ankles. The pain is stretching kind and feels very tight, no radiation of the pain associated with swelling going up to the knees. He take 14 units of long acting on the off days and 20 units of the long acting on the days of his prednisone. Along with this he takes sliding scale insulin. On the days that he does not take prednisone his sugars are around 200. Labs on admission showed hyperkalemia of 7.6 with no EKG changes, Hyperglycemia of 550 and ESSENCE on CKD with creatinine of 3.2 up from 2.8 few days ago. He was admitted for nephrotic syndrome, uncontrolled hyperglycemia, ESSENCE on CKD and hyperkalemia. Home Medications Scheduled Amlodipine Besylate (Amlodipine Besylate) 10 Mg Tablet, 10 MG PO DAILY, (Reported) Apixaban (Eliquis) 2.5 Mg Tablet, 2.5 MG PO DAILY, (Reported) Atorvastatin Calcium (Atorvastatin Calcium) 20 Mg Tablet, 20 MG PO QHS, (Reported) Carvedilol (Carvedilol) 12.5 Mg Tablet, 12.5 MG PO BID, (Reported) Esomeprazole Magnesium (Esomeprazole Magnesium) 40 Mg Capsule., 40 MG PO DAILY, (Reported) Ferrous Sulfate (Ferrous Sulfate) 324 Mg Tablet., 324 MG PO DAILY, (Reported) Insulin Glargine,Hum.rec.anlog (Lantus Solostar) 100 Unit/1 Ml Insuln.pen, 20 UNIT SC Q2D, (Reported) TAKES ON DAYS WITH PREDNISONE AT BEDTIME Insulin Glargine,Hum.rec.anlog (Lantus Solostar) 100 Unit/1 Ml Insuln.pen, 14 UNITS SC Q2D, (Reported) TAKES ON DAYS WITHOUT PREDNISONE Insulin Human Lispro (Humalog) 100 Unit/1 Ml Vial, 1 DOSE SC AC, (Reported) PER SLIDING SCALE Lisinopril (Lisinopril) 10 Mg Tablet, 10 MG PO DAILY, (Reported) Prednisone (Prednisone) 50 Mg Tablet, 50 MG PO Q2D, (Reported) Triamterene/Hydrochlorothiazid (Triamterene-Hctz 37.5-25 mg Cp) 1 Each Capsule, 1 CAP PO DAILY, (Reported) Scheduled PRN Albuterol Sulfate (Ventolin Hfa) 18 Gm Hfa.aer.ad, 2 PUFF INH QID PRN for SHORTNESS OF BREATH, (Reported) Allergies Coded Allergies: No Known Drug Allergies (Verified Allergy, Unknown, 12/29/19) SEASONAL ALLERGIES (Verified Allergy, Unknown, 09/01/18) Past Medical History Medical History type 1 Diabetes Nephrotic syndrome Minimal change disease Hypertension CKD Situs inversus totalis. asthma Surgical History Polyp removal bilateral ankle surgery with rods Family History Significant Family History: Diabetes Social History * Smoker: current smoker Alcohol: Denies Drugs: marijuana A-FIB/CHADSVASC A-FIB History Current/History of A-Fib/PAF?: No Current PO Anticoag Therapy: Yes Review of Systems Constitutional: Denies: Chills, Fever, Night Sweats Eyes: Denies: Pain, Vision change ENT: Denies: Head Aches, Ear Pain, Dysphagia Skin: Denies: Rash, Lesions, Breakdown Pulmonary: Reports: Cough; Denies: Dyspnea Cardiovascular: Denies: Chest Pain, Palpitations, Orthopnea, Paroxysmal Noc. Dyspnea, Lt Headedness Gastrointestinal: Denies: Nausea, Vomiting, Abdominal Pain, Diarrhea Genitourinary: Denies: Dysuria, Frequency, Incontinence, Retention Hematologic: Denies: Bruising, Bleeding Excessively Musculoskeletal: Reports: Leg Pain Physical Examination General Exam: Positive: Alert, Cooperative, No Acute Distress Eye Exam: Positive: PERRLA, Conjunctiva & lids normal, EOMI, Other Eye Symptoms (periorbital edema); Negative: Sclera icteric ENT Exam: Positive: Atraumatic, Mucous membr. moist/pink, Pharynx Normal Neck Exam: Positive: Supple, JVD; Negative: thyromegaly Chest Exam: Positive: Clear to auscultation, Normal air movement Heart Exam: Positive: Rate Normal, Regular Rhythm, Normal S1, Normal S2; Negative: Murmurs, Rubs Telemetry: Positive: No significant arrhythmia Abdomen Exam: Positive: Normal bowel sounds, Soft; Negative: Tenderness, Hepatospenomegaly Extremity Exam: Positive: Edema (bipedal pitting edema. ), Normal pulses; Negative: Clubbing, Cyanosis Skin Exam: Positive: Nl turgor and temperature; Negative: Breakdown, Lesion Neuro Exam: Positive: Normal Speech, Strength at 5/5 X4 ext, Normal Tone Vital Signs Vital Signs Date Time Temp Pulse Resp B/P (MAP) Pulse Ox O2 Delivery O2 Flow Rate FiO2 12/29/19 14:52 97.5 79 20 188/102 (130) 100 Room Air Laboratory Data Labs 24H Laboratory Tests 2 12/29/19 15:19: Immature Granulocyte % (Auto) 0.3, Neutrophils (%) (Auto) 94.0H, Lymphocytes (%) (Auto) 5.0L, Monocytes (%) (Auto) 0.4, Eosinophils (%) (Auto) 0.0, Basophils (%) (Auto) 0.3, Neutrophils # (Auto) 13.9H, Lymphocytes # (Auto) 0.7L, Monocytes # (Auto) 0.1, Eosinophils # (Auto) 0.0, Basophils # (Auto) 0.0, Nucleated Red Blood Cells % (auto) 0.0, Anion Gap 7L, Glomerular Filtration Rate 29.6L, Calcium Level 8.8, Total Bilirubin 0.1L, Aspartate Amino Transf (AST/SGOT) 18, Alanine Aminotransferase (ALT/SGPT) 20, Alkaline Phosphatase 127H, Total Protein 7.0, Albumin 2.4L, Albumin/Globulin Ratio 0.5 CBC/BMP Laboratory Tests 12/29/19 15:19 Assessment/Plan 29 year old male incarcerated at [facility] with PMH of Nephrotic syndrome recently diagnosed 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 Patient says on the days of prednisone sugars read high. He also complained of bilateral leg swelling reaching upto the knees with difficulty in bending the knees. He says his legs feel heavy and painful around the ankles. The pain is stretching kind and feels very tight, no radiation of the pain associated with swelling going up to the knees. He take 14 units of long acting on the off days and 20 units of the long acting on the days of his prednisone. Along with this he takes sliding scale insulin. On the days that he does not take prednisone his sugars are around 200. Labs on admission showed hyperkalemia of 7.6 with no EKG changes, Hyperglycemia of 550 and ESSENCE on CKD with creatinine of 3.2 up from 2.8 few days ago. He was admitted for nephrotic syndrome, uncontrolled hyperglycemia, ESSENCE on CKD and hyperkalemia. Hyperkalemia IV regular insulin 10 units, calcium chloride, kayexalate, albuterol nebs. EKG stat Nephrology consulted. Repeat BMP in 1 hour. hold coreg, hold triamterone and lisinopril. Type I Dm with uncontrolled Hyperglycemia will give IV regular 10 units Levemir 30 units at bid and lispro sliding scale FS AC and HS. ESSENCE on CKD probably due to intravascular dehydration from high sugars on the back ground of DM nephropathy glomerulonephritis, lisinopril and diuretics. will hold diuretics and lisinopril Hypertension with hypertensive urgency. will give iv hydralazine once. will continue amlodipine hold lisinopril and diuretics will hold coreg till hyperkalemia is corrected. add hydralazine Nephrotic syndrome possibly due to minimal change disease on the back ground of diabetic nephropathy continue prednisone 50 mg daily. Lasix PRN. 24 hour urine for protein Leucocytosis possibly due to steroids. will check blood cultures and ua. Plan / VTE VTE Prophylaxis Ordered?: Yes REINIER ROGERS MD Dec 29, 2019 17:06
[2019-12-29 17:30] VITALS: BP 182/97
[2019-12-29] MEDS: HumaLOG INSULIN (NovoLOG) PER UNIT SC SCH ×2 (17:30→21:00)
[2019-12-29] MEDS: **hydrALAZINE HCL** 25 MG TAB PO SCH (18:29)
[2019-12-29] MEDS ORDERED: DEXTROSE 50% 50 ML SYRINGE IV PRN (18:30)
[2019-12-29] MEDS ORDERED: GLUCAGON INJ 1MG VIAL SC PRN (18:30)
[2019-12-29] MEDS ORDERED: GLUCOSE 4GM CHEW TABLET PO PRN (18:30)
[2019-12-29 19:50] LABS: CALCIUM LEVEL 9.2 MG/DL (8.5-10.1); CREATININE FOR GFR 3.36 MG/DL (0.70-1.30); GLOMERULAR FILTRATION RATE 28.6 (>60)
[2019-12-29 20:00] VITALS: BP 152/88
[2019-12-29] MEDS ORDERED: SODIUM CHLORIDE 0.9% 1000ML IV ONE (20:45)
[2019-12-29] MEDS ORDERED: LEVEMIR (INSULIN DETEMIR) 1 UNITS/0.01ML SC SCH (21:00)
[2019-12-29] MEDS: ATORVASTATIN 20 MG TAB PO SCH (21:21)
[2019-12-29] MEDS: LEVEMIR (INSULIN DETEMIR) 1 UNITS/0.01ML SC SCH (21:21)
[2019-12-30] VITALS: BP 162/90
[2019-12-30] MEDS: **hydrALAZINE HCL** 25 MG TAB PO SCH ×5 (00:03→20:48)
[2019-12-30 00:49] LABS: CALCIUM LEVEL 9.1 MG/DL (8.5-10.1); CREATININE FOR GFR 3.15 MG/DL (0.70-1.30); GLOMERULAR FILTRATION RATE 30.8 (>60); POTASSIUM SERUM 5.2 MEQ/L (3.5-5.1)
[2019-12-30] MEDS ORDERED: HumuLIN R (REGULAR) INSULIN (NovoLIN R) **100U/ML** PER UNIT IV STA (01:12)
[2019-12-30] MEDS: LIDOCAINE 5% (LIDODERM) PATCH TD SCH (02:00)
[2019-12-30 04:00] VITALS: BP 152/90
[2019-12-30 04:30] LABS: BASO % 0.1 % (0.0-1.0); EOS % 0.1 % (0.0-3.0); HEMATOCRIT 21.5 % (42.0-52.0); HEMOGLOBIN 7.3 g/dl (13.5-17.5); LYMPH # 1.8 10^3/uL (1.5-5.0); LYMPH % 12.6 % (24.0-44.0); MEAN CORPUSCULAR HEMOGLOBIN 29.4 pg (27.0-33.0); MEAN CORPUSCULAR VOLUME 86.7 fl (80.0-96.0); MONO % 7.1 % (0.0-5.0); NEUTROPHILS # 11.1 10^3/uL (1.5-8.5); NEUTROPHILS % 79.7 % (36.0-66.0); PLATELET COUNT, AUTOMATED 326 10^3/uL (150-450); RED BLOOD COUNT 2.48 10^6/uL (4.30-6.10); WHITE BLOOD COUNT 13.9 10^3/uL (4.0-10.0)
[2019-12-30 04:42] LABS: CALCIUM LEVEL 8.7 MG/DL (8.5-10.1); CREATININE FOR GFR 3.01 MG/DL (0.70-1.30); GLOMERULAR FILTRATION RATE 32.4 (>60); MAGNESIUM LEVEL 1.6 MG/DL (1.8-2.4); POTASSIUM SERUM 4.4 MEQ/L (3.5-5.1)
[2019-12-30 04:58] LABS: ALT/SGPT 16 U/L (12-78); BILIRUBIN,DIRECT < 0.1 MG/DL (0.0-0.2); BILIRUBIN,TOTAL 0.3 MG/DL (0.2-1.0); TOTAL PROTEIN 6.1 GM/DL (6.4-8.2)
[2019-12-30 08:00] VITALS: BP 168/88
[2019-12-30] MEDS: FERROUS SULFATE 325MG TAB PO SCH (09:28)
[2019-12-30] MEDS: APIXABAN 2.5 MG TAB (ELIQUIS) PO SCH (09:28)
[2019-12-30] MEDS: HumaLOG INSULIN (NovoLOG) PER UNIT SC SCH ×4 (09:28→20:41)
[2019-12-30] MEDS: PANTOPRAZOLE 40MG TAB (PROTONIX) PO SCH (09:28)
[2019-12-30] MEDS: predniSONE 50 MG TAB PO SCH (09:28)
[2019-12-30] MEDS: LEVEMIR (INSULIN DETEMIR) 1 UNITS/0.01ML SC SCH ×2 (09:28→20:48)
--- NOTE | 2019-12-30 09:53 | IPN ---
DATE OF SERVICE: 12/30/2019 Karlo is seen in progressive care unit (PCU). Admitted to the hospitalist service, history of nephrotic syndrome, possible minimal change disease, type 1 diabetes with diabetic neuropathy, chronic kidney disease, hypertensive heart disease, and asthma. He was admitted for uncontrolled blood sugars due to prednisone, increasing edema. Nephrology has been consulted and is on the case. Blood sugars were elevated in the 500s yesterday. It is down to 270 this morning. PHYSICAL EXAMINATION: 168/88, pulse of 86, respiratory rate 20, 99% oxygen (O2) saturation. General appearance: Alert, conversant, no distress. HEENT: Unremarkable. No jugular venous distention (JVD). Lungs clear. Heart: Regular rate and rhythm. Abdomen: Soft, nontender, no masses. Trace peripheral edema. LABORATORIES: Sodium 133, potassium 4.4, BUN 55, creatinine 3.0, glucose 262. White count 13.9 on prednisone, hemoglobin 7.3, platelets 326. Blood cultures are pending. IMPRESSION: 1. Diabetes. Out of control. Improved on the current regimen. Blood sugars are down in the 200s. Steroid therapy is continuing. Insulin dose is going to be adjusted on a daily basis. He has been in less than 24 hours, so I am not adjusting his basal insulin dose yet. 2. Anemia secondary to chronic kidney disease. Per nephrology. 3. Stage III-IV chronic kidney disease. Per nephrology, who is consulted. 4. Hypertensive heart disease. Blood pressure is under good control. 5. Hyperlipidemia. Current dose of atorvastatin 20 mg daily. 6. Anticoagulation. He is on Eliquis 2.5 mg daily. Indications are not specified in the history and physical. We will continue this.
[2019-12-30 12:00] VITALS: BP 175/97
[2019-12-30 13:14] LABS: FERRITIN 99 NG/ML (26-388); IRON (FE) 48 UG/DL (65-175); PERCENT SATURATION 25.9 % (19.7-50.0); TOTAL IRON BINDING CAPACITY 185 UG/DL (250-450)
[2019-12-30 16:00] VITALS: BP 172/100
--- NOTE | 2019-12-30 16:06 | CR ---
DATE OF CONSULTATION: 12/30/2019 CONSULTATION FOR: Dr. Laverne Smalls REASON FOR CONSULTATION: Acute kidney injury superimposed on chronic kidney disease and nephrotic syndrome with uncontrolled diabetes. HISTORY OF PRESENT ILLNESS: Mr. Mead is a 29-year-old gentleman who is transferred to [facility] from [facility]. He has known history of type 1 diabetes and was recently diagnosed with nephrotic syndrome. His kidney biopsy was suggestive off diabetic nephropathy with superimposed minimal-change disease. He was started on oral prednisone as outpatient for possible minimal-change disease and developed worsening hyperglycemia, which could not be managed in the correctional facility, due to which the patient was admitted yesterday. On admission, his blood sugar was 550, potassium level was 7.6, and his creatinine was up to 3.5, while his baseline creatinine is about 2.8 mg/dL. The patient also had worsening leg edema recently. It was felt that it would be very difficult to manage him as an outpatient, due to which a hospitalization was recommended, and the patient was admitted yesterday. PAST MEDICAL HISTORY: 1. Type 1 diabetes. 2. Hypertension. 3. Chronic kidney disease. 4. Asthma. 5. Situs inversus totalis. 6. 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 PAST SURGICAL HISTORY: Significant for: 1. Polyp removal. 2. Bilateral ankle surgery. 3. Kidney biopsy. HOME MEDICATIONS: - amlodipine 10 mg daily - Eliquis 2.5 mg daily - atorvastatin 20 mg daily - carvedilol 12.5 mg twice a day - Nexium 40 mg daily - ferrous gluconate 324 mg daily - Lantus insulin 20 units every 2 days and 14 units every 2 days - Humalog insulin per sliding scale - lisinopril 10 mg daily - prednisone 50 mg every 2 days - Dyazide 37.5/25 mg one tablet daily ALLERGIES: The patient has no known drug allergies. PERSONAL AND SOCIAL HISTORY: The patient is currently in the correctional facility. He is a smoker and denies any alcohol use. He does have history of marijuana use. FAMILY HISTORY: Significant for diabetes. REVIEW OF SYSTEMS: The patient denies any headache, nose, sinus, or throat problems. Cardiovascular system is significant for lower extremity edema. He denies any chest pain or dyspnea. Respiratory system is significant for asthma. No active symptoms at this point. He has no hemoptysis or pleuritic-type of chest pain. Gastrointestinal (GI) system is negative for nausea, vomiting, or diarrhea. Genitourinary () system is significant for nephrotic syndrome. The patient denies any dysuria or hematuria. Musculoskeletal system significant for lower extremity edema, which has improved since admission. Psychosocial system is negative for depression or anxiety. Neurological system negative for seizures or stroke. Hematological system is significant for anemia. Skin is negative for rash or ulcers. PHYSICAL EXAMINATION: This is a young -Portuguese male lying in the bed without any acute distress. Corrections officers are present in the room. Temperature 98.4 degrees Fahrenheit, heart rate 86 per minute, respiratory rate 20 per minute, blood pressure 168/88 mm of mercury, and oxygen saturation 99% on room air. Head is atraumatic. Neck supple and without jugular venous distention (JVD) or thyroid enlargement. Heart sounds are regular and lungs sound clear to auscultation. Abdomen soft and nontender, and bowel sounds are normal. Extremities without any cyanosis or clubbing. Lower extremity edema has already improved. Neurologically, he has no focal deficit. Lab data showed on admission WBC count 14.8, hemoglobin 8.3, and hematocrit 24.8. Today, WBC count is 13.9, hemoglobin 7.3, and hematocrit 21.5. His sodium was 131 on admission, potassium 7.6, CO2 of 20, BUN 55, and creatinine 3.26. Glucose was 550 and calcium 8.2. This morning, sodium 133, potassium 4.4, CO2 of 22, BUN 52, and creatinine is down to 3.0. Glucose 262 and calcium 8.7. Magnesium is 1.6. Total protein 6.1 and albumin 2.0. Bilirubin is 0.3, AST 14, ALT 16, and alkaline phosphatase 109. A urinalysis has not been done as yet. PROBLEMS: 1. Severe hyperkalemia. Most likely was related to hyperglycemia and worsening kidney function. His potassium level has already improved. I would suggest to continue with angiotensin-converting enzyme (SHAHRAM) inhibitor therapy for nephrotic syndrome. 2. Acute kidney injury superimposed on chronic kidney disease, probably related to nephrotic syndrome and possible intravascular volume depletion related to hyperglycemia. Kidney function seems to be improving close to baseline. 3. Anemia. The patient has significant anemia, and we will check iron studies. At this point, he is likely to require transfusion. 4. Nephrotic syndrome. The patient has a history of longstanding diabetes, and his kidney biopsy did show diabetic nephropathy with superimposed minimal-change disease. We will continue with trial of steroids to see if his nephrotic syndrome responds. Thank you for involving me in the care of Mr. Mead. I will follow him along with you.
[2019-12-30] MEDS ORDERED: amLODIPine 5 MG TAB PO ONE (17:30)
[2019-12-30 20:00] VITALS: BP 169/102
[2019-12-30] MEDS: ATORVASTATIN 20 MG TAB PO SCH (20:48)
[2019-12-30 20:52] LABS: CREATININE 24 HOUR, URINE 1720.5 MG/24HR (950-2500); MAU/MINUTE 6162.7 MCG/MIN (0.0-20.0); TOTAL PROTEIN 24 HOUR URINE 12365.4 MG/24HR (50-150); URINE TOTAL PROTEIN 222.8 MG/DL (0-12)
[2019-12-30] MEDS: **NOTE PATIENT COMMENT** MISC XX SCH (20:52)
[2019-12-30] MEDS ORDERED: **hydrALAZINE HCL** 25 MG TAB PO SCH (22:00)
[2019-12-31] VITALS (8 sets, daily range): BP systolic 157–190; BP diastolic 88–120
[2019-12-31] MEDS: **hydrALAZINE HCL** 25 MG TAB PO SCH ×3 (04:57→21:28)
[2019-12-31 05:08] LABS: BASO % 0.1 % (0.0-1.0); HEMATOCRIT 24.5 % (42.0-52.0); HEMOGLOBIN 8.2 g/dl (13.5-17.5); LYMPH # 2.1 10^3/uL (1.5-5.0); LYMPH % 13.3 % (24.0-44.0); MEAN CORPUSCULAR HEMOGLOBIN 29.1 pg (27.0-33.0); MEAN CORPUSCULAR HGB CONC 33.5 g/dl (32.0-36.5); MEAN CORPUSCULAR VOLUME 86.9 fl (80.0-96.0); MONO # 0.9 10^3/uL (0.0-0.8); MONO % 5.9 % (0.0-5.0); NEUTROPHILS # 12.7 10^3/uL (1.5-8.5); NEUTROPHILS % 80.4 % (36.0-66.0); PLATELET COUNT, AUTOMATED 380 10^3/uL (150-450); RED BLOOD COUNT 2.82 10^6/uL (4.30-6.10); WHITE BLOOD COUNT 15.7 10^3/uL (4.0-10.0)
[2019-12-31 05:39] LABS: CALCIUM LEVEL 8.6 MG/DL (8.5-10.1); CREATININE FOR GFR 2.82 MG/DL (0.70-1.30); MAGNESIUM LEVEL 1.5 MG/DL (1.8-2.4); POTASSIUM SERUM 4.4 MEQ/L (3.5-5.1)
--- NOTE | 2019-12-31 08:41 | ECGEPIP ---
[facility] Test Date: 2019-12-29 Pat Name: HOLLIS HIGGINS Department: Room: [place] [address] Gender: Male Parts Interpreter: ANGELICA : 1990 Requested By: REINIER ROGERS Order Number: [id number] Reading MD: Kath Vernon Measurements Intervals [place] Rate: 67 P: 120 MD: 164 QRS: 151 QRSD: 106 T: 94 QT: 367 QTc: 388 Interpretive Statements SINUS RHYTHM ARM LEADS REVERSED ATYPICAL ECG SIMILAR TO 09/13/16 WHERE ARM REVERSAL WAS ALSO PRESENT Electronically Signed on 12-31-2019 8:41:29 EDT by Kath Vernon
[2019-12-31] MEDS: LEVEMIR (INSULIN DETEMIR) 1 UNITS/0.01ML SC SCH ×2 (08:43→21:28)
[2019-12-31] MEDS: LOSARTAN 50MG TABLET PO SCH (08:45)
[2019-12-31] MEDS: HumaLOG INSULIN (NovoLOG) PER UNIT SC SCH ×4 (08:45→21:29)
[2019-12-31] MEDS: APIXABAN 2.5 MG TAB (ELIQUIS) PO SCH (08:46)
[2019-12-31] MEDS: PANTOPRAZOLE 40MG TAB (PROTONIX) PO SCH (08:46)
[2019-12-31] MEDS: predniSONE 50 MG TAB PO SCH (08:46)
[2019-12-31] MEDS: FERROUS SULFATE 325MG TAB PO SCH (08:46)
[2019-12-31] MEDS ORDERED: MAGNESIUM OXIDE 400 MG TAB (MAG-OX) PO ONE (09:00)
[2019-12-31] MEDS: LIDOCAINE 5% (LIDODERM) PATCH TD SCH (09:00)
[2019-12-31] MEDS: hydrALAZINE 20MG/ML 1ML VIAL (J0360 PER 20MG) IV SCH ×3 (12:24→23:40)
[2019-12-31] MEDS ORDERED: FERRIC CARBOXYMALTOSE INJ 750 MG in NS 250 ML IV ONE (13:00)
--- NOTE | 2019-12-31 15:28 | IPN ---
DATE: 12/31/2019 Mr. Mead is seen this morning on his bedside. He is lying in the bed resting comfortably. Corrections officers are present in the room. The patient denies any complaints today. His leg edema has improved and denies any dyspnea, chest pain, nausea or vomiting. His blood pressure has been running somewhat high but denies any headache. His lisinopril was stopped on the day of admission due to hyperkalemia. He is 24-hour urine test has come back which showed 24-hour microalbumin of 8880 mg. Total protein in 24-hour urine is 12,365 mg. His blood sugars are improving and insulin is being adjusted. He is known to have diabetic nephropathy with superimposed minimal change disease on his kidney biopsy. PHYSICAL EXAMINATION: Temperature 98.3 degrees Fahrenheit, heart rate 70 per minute and respiratory rate 18 per minute. Blood pressure 182/120 mmHg now while earlier it was 166/90 mmHg. Oxygen saturation is 98% on room air. Head is atraumatic. Neck: Supple and without jugular venous distention (JVD) or thyroid enlargement. Trachea is midline. Heart: Sounds regular and lungs clear to auscultation. Abdomen: Soft and nontender and bowel sounds are normal. Extremities: Without any cyanosis or clubbing. His lower extremity edema is almost completely resolved. Neurologically he is awake, alert and oriented times three. Today's labs show sodium 140, potassium 4.4, CO2 24, BUN 46 and creatinine 2.82. Glucose 163 and calcium 8.5. Magnesium level is 1.5. His iron level was 48 and saturation 25.9%. Ferritin was 99 yesterday. PROBLEM: 1. Nephrotic syndrome: Patient has severe nephrotic syndrome with more than 12 grams of protein in his 24-hour urine. We will continue our efforts to decrease his proteinuria. He has diabetic nephropathy with superimposed minimal change in disease. Prednisone 50 mg daily will be continued and insulin will be adjusted to prevent hyperglycemia. He could not take his prednisone in the intermediate safely due to uncontrolled diabetes and also had severe hyperkalemia and worsening kidney function. 2. Acute renal failure superimposed on chronic kidney disease: His kidney function is improving and we will continue to monitor closely. Probably he had some dehydration caused automatic diuresis as his hyperglycemia was uncontrolled for several days. 3. Anemia: His anemia is also gradually improving. His iron studies are low and we will start with oral iron supplement. We can also consider giving him a dose of intravenous iron. At this point he is already taking oral iron once a day and will continue with the same. 4. Hypertension: Blood pressure is quite high today and I am going to start losartan 50 mg daily. He will continue with amlodipine, hydralazine as previously. He is currently not on any diuretic or beta-maribel. We will adjust his angiotensin receptor maribel dose as needed while watching his electrolytes and kidney function over next few days. 5. Uncontrolled diabetes: Blood sugars are much better now and we will continue to adjust his insulin. He will continue with prednisone and diabetic diet. 6. Disposition: I feel the patient is likely to require at least two to three more days of hospital stay in order to adjust his medications and monitor his kidney function and electrolytes.
--- NOTE | 2019-12-31 19:17 | IPNPDOC ---
Date Seen The patient was seen on 12/31/19. Progress Note SUBJECTIVE: No acute complaints but did want to leave. Police officers in room said he is not able to make phone call or leave currently. Patient denies pain, shortness of breath, n/v/d. Was updated by Dr. Snyder. OBJECTIVE: VITAL SIGNS: Please see below PHYSICAL EXAMINATION: CONSTITUTIONAL: No acute distress, resting comfortably, AAO x 3 EYES: PERRLA, EOM intact HENT, MOUTH: Normocephalic, atraumatic, moist mucous membranes NECK: SUPPLE, no JVD, no lymphadenopathy, no carotid bruit CV: Regular rate and rhythm, S1S2 normal, no murmurs/rubs/gallops RESPIRATORY: Clear to auscultation bilaterally, no rales/rhonchi/wheezes GI: BS positive in 4 quadrants, soft, nontender, nondistended, no rebound or guarding, no organomegaly : Deferred MUSCULOSKELETAL: Normal ROM. No cyanosis, clubbing, swelling, joint deformity, +1 pitting lower extremity edema INTEGUMENTARY: Intact, no rashes, no lesions, no erythema NEUROLOGIC: Cranial Nerves II-XII are intact, no focal deficits PSYCHIATRIC: Mood and affect are normal CURRENT MEDICATIONS: Please see below LABORATORY DATA: Please see below IMAGING: None ASSESSMENT: 29 y/o M admitted for further treatment of nephrotic syndrome, acute renal failure superimposed on chronic kidney disease. PLAN: 1. Nephrotic syndrome -24H urine: 12 gms protein -Serum Cr further improved to 2.8 -C/w prednisone 50 mg PO daily -Nephrology following 2. Acute renal failure superimposed on chronic kidney disease, dehydration due to hyperglycemia -Cr improving slowly -C/w treatment above -F/u daily labs. 3. Iron deficiency anemia -Iron studies show low iron -C/w iron supplementation, consider venofer IV -Daily CBC 4. Uncontrolled hypertension -Started losartan 50 mg Po daily, required 10 mg IV hydralazine -C/w amlodipine, hydralazine -F/u closely. 5. Uncontrolled diabetes -BS currently controlled with prednisone -levemir, ISS, AC/HS blood sugar checks, diabetic diet. 6. DVT px. Eliquis DISPOSITION: Currently under inpatient status. Will likely be here over the weekend as per nephrology. Plan is [facility] to [facility] facility when medically improved. VS, I&O, [facility] Vital Signs/I&O Vital Signs Date Time Temp Pulse Resp B/P (MAP) Pulse Ox O2 Delivery O2 Flow Rate FiO2 12/31/19 18:24 189/109 12/31/19 16:00 98.7 95 18 96 Room Air I&O- Last 24 Hours up to 6 AM 12/31/19 06:00 Intake Total 1385 ml Output Total 2600 ml Balance -1215 ml Laboratory Data 24H LABS Laboratory Tests 2 12/30/19 20:35: Bedside Glucose (Misc Panel) 157H 12/31/19 03:49: Bedside Glucose (Misc Panel) 144H 12/31/19 04:56: Immature Granulocyte % (Auto) 0.3, Neutrophils (%) (Auto) 80.4H, Lymphocytes (%) (Auto) 13.3L, Monocytes (%) (Auto) 5.9H, Eosinophils (%) (Auto) 0.0, Basophils (%) (Auto) 0.1, Neutrophils # (Auto) 12.7H, Lymphocytes # (Auto) 2.1, Monocytes # (Auto) 0.9H, Eosinophils # (Auto) 0.0, Basophils # (Auto) 0.0, Nucleated Red Blood Cells % (auto) 0.0, Anion Gap 8, Glomerular Filtration Rate 35.0L, Calcium Level 8.6, Magnesium Level 1.5L 12/31/19 12:08: Bedside Glucose (Misc Panel) 93 12/31/19 17:42: Bedside Glucose (Misc Panel) 126H CBC/BMP Laboratory Tests 12/31/19 04:56 Microbiology Microbiology 12/29/19 Blood Culture - Preliminary, Resulted No growth after 24 hours . All specim... 12/29/19 Blood Culture - Preliminary, Resulted No growth after 24 hours . All specim... Current Medications Current Medications Medications (Trade) Dose Ordered Sig/Gregory Route PRN Reason Start Time Stop Time Status Last Admin Dose Admin Apixaban (Eliquis) 2.5 mg DAILY PO 12/30/19 09:00 12/31/19 08:46 Atorvastatin Calcium (Lipitor) 20 mg QHS PO 12/29/19 21:00 12/30/19 20:48 Calcium Chloride 1 gm/Dextrose 110 ml @ 660 mls/hr ONCE IV 12/29/19 16:30 12/29/19 16:39 DC 12/29/19 17:24 Dextrose (Dextrose 50%) 25 ml ASDIRECTED PRN IV SEE LABEL COMMENTS 12/29/19 18:30 Ferrous Sulfate (Ferrous Sulfate) 325 mg DAILY PO 12/30/19 09:00 12/31/19 08:46 Glucagon (Glucagon) 1 mg ASDIRECTED PRN SC SEE LABEL COMMENTS 12/29/19 18:30 Glucose (Glucose) 16 GM ASDIRECTED PRN PO SEE LABEL COMMENTS 12/29/19 18:30 Home Med (Med Rec Complete!) ASDIRECTED XX 12/29/19 16:30 12/29/19 16:32 DC Hydralazine HCl (Apresoline) 10 mg Q6H IV 12/31/19 12:00 12/31/19 18:24 Hydralazine HCl (Apresoline) 25 mg Q6H PO 12/29/19 18:00 12/30/19 14:16 DC 12/30/19 12:16 Hydralazine HCl (Apresoline) 25 mg Q8H PO 12/30/19 14:00 12/31/19 14:49 Hydralazine HCl (Apresoline) 25 mg Q8H PO 12/30/19 22:00 12/30/19 14:24 DC Insulin Detemir (Levemir Insulin) 20 units BID SC 12/29/19 21:00 12/29/19 20:42 DC Insulin Detemir (Levemir Insulin) 30 units BID SC 12/29/19 21:00 12/31/19 08:43 Insulin Human Lispro (HumaLOG INSULIN) See Protocol Table AC SC 12/29/19 17:30 12/31/19 18:23 Insulin Human Lispro (HumaLOG INSULIN) See Protocol Table QHS SC 12/29/19 21:00 Insulin Human Regular (HumuLIN R INSULIN) 6 units STAT STAT IV 12/30/19 01:12 12/30/19 01:15 DC 12/30/19 01:23 Insulin Human Regular (HumuLIN R INSULIN) 8 units STAT STAT IV 12/29/19 20:37 12/29/19 21:07 DC Insulin Human Regular (HumuLIN R INSULIN) 10 units STAT STAT IV 12/29/19 16:16 12/29/19 16:19 DC 12/29/19 17:55 Insulin Human Regular (HumuLIN R INSULIN) 10 units STAT STAT IV 12/29/19 21:05 12/29/19 21:07 DC 12/29/19 21:21 Lidocaine (Lidoderm Patch) 2 patch DAILY TD 12/30/19 02:00 12/31/19 11:50 DC Losartan Potassium (Cozaar) 50 mg DAILY PO 12/31/19 09:00 12/31/19 08:45 Non-Formulary Medication ( See Comment Field Below ) REMOVE LIDODERM PATCH DAILY@21 XX 12/30/19 21:00 12/30/19 20:52 Pantoprazole Sodium (Protonix) 40 mg DAILY PO 12/30/19 09:00 12/31/19 08:46 Prednisone (Deltasone) 50 mg DAILY PO 12/30/19 09:00 12/31/19 08:46 Allergies Coded Allergies: No Known Drug Allergies (Verified Allergy, Unknown, 12/29/19) SEASONAL ALLERGIES (Verified Allergy, Unknown, 09/01/18) Vandana Weaver MD Dec 31, 2019 19:17
[2019-12-31] MEDS: **NOTE PATIENT COMMENT** MISC XX SCH (21:00)
[2019-12-31] MEDS: ATORVASTATIN 20 MG TAB PO SCH (21:28)
[2020-01-01] VITALS: BP 170/110
[2020-01-01 04:00] VITALS: BP 160/100
[2020-01-01] MEDS: hydrALAZINE 20MG/ML 1ML VIAL (J0360 PER 20MG) IV SCH ×2 (05:31→12:00)
[2020-01-01] MEDS: **hydrALAZINE HCL** 25 MG TAB PO SCH (05:39)
[2020-01-01 06:00] LABS: BASO % 0.1 % (0.0-1.0); HEMATOCRIT 26.6 % (42.0-52.0); LYMPH # 2.6 10^3/uL (1.5-5.0); LYMPH % 14.9 % (24.0-44.0); MEAN CORPUSCULAR HEMOGLOBIN 29.4 pg (27.0-33.0); MEAN CORPUSCULAR HGB CONC 33.8 g/dl (32.0-36.5); MEAN CORPUSCULAR VOLUME 86.9 fl (80.0-96.0); MONO # 1.6 10^3/uL (0.0-0.8); MONO % 9.1 % (0.0-5.0); NEUTROPHILS # 13.4 10^3/uL (1.5-8.5); NEUTROPHILS % 75.3 % (36.0-66.0); PLATELET COUNT, AUTOMATED 417 10^3/uL (150-450); RED BLOOD COUNT 3.06 10^6/uL (4.30-6.10); WHITE BLOOD COUNT 17.7 10^3/uL (4.0-10.0)
[2020-01-01 06:21] LABS: CALCIUM LEVEL 8.9 MG/DL (8.5-10.1); CREATININE FOR GFR 2.68 MG/DL (0.70-1.30); GLOMERULAR FILTRATION RATE 37.1 (>60); MAGNESIUM LEVEL 1.7 MG/DL (1.8-2.4); POTASSIUM SERUM 3.9 MEQ/L (3.5-5.1)
[2020-01-01 08:00] VITALS: BP 180/110
[2020-01-01] MEDS: APIXABAN 2.5 MG TAB (ELIQUIS) PO SCH (08:05)
[2020-01-01] MEDS: LOSARTAN 50MG TABLET PO SCH (08:05)
[2020-01-01] MEDS: FERROUS SULFATE 325MG TAB PO SCH (08:05)
[2020-01-01] MEDS: PANTOPRAZOLE 40MG TAB (PROTONIX) PO SCH (08:05)
[2020-01-01] MEDS: predniSONE 50 MG TAB PO SCH (08:05)
[2020-01-01] MEDS: LEVEMIR (INSULIN DETEMIR) 1 UNITS/0.01ML SC SCH (08:06)
[2020-01-01] MEDS: HumaLOG INSULIN (NovoLOG) PER UNIT SC SCH (08:06)
[2020-01-01] MEDS ORDERED: LOSARTAN 50MG TABLET PO ONE ×2 (08:30→11:15)
[2020-01-01] MEDS ORDERED: MAGNESIUM OXIDE 400 MG TAB (MAG-OX) PO SCH (09:00)
[2020-01-01] MEDS ORDERED: MAG400TA PO (11:14)
[2020-01-01] MEDS ORDERED: COZA50TA PO (11:14)
[2020-01-01] MEDS ORDERED: LANTINJ4 SC ×2 (11:14→11:19)
[2020-01-01] MEDS ORDERED: PRED50TA PO (11:14)
[2020-01-01 11:35] VITALS: BP 181/104
[2020-01-01 12:00] VITALS: BP 160/80
--- NOTE | 2020-01-01 15:52 | DS.PDOC ---
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 Patient says on the days of prednisone sugars read high. He also complained of bilateral leg swelling reaching upto the knees with difficulty in bending the knees. He says his legs feel heavy and painful around the ankles. The pain is stretching kind and feels very tight, no radiation of the pain associated with swelling going up to the knees. He take 14 units of long acting on the off days and 20 units of the long acting on the days of his prednisone. Along with this he takes sliding scale insulin. On the days that he does not take prednisone his sugars are around 200. Labs on admission showed hyperkalemia of 7.6 with no EKG changes, Hyperglycemia of 550 and ESSENCE on CKD with creatinine of 3.2 up from 2.8 few days ago. He was admitted for nephrotic syndrome, uncontrolled hyperglycemia, ESSENCE on CKD and hyperkalemia. HOSPITAL COURSE: Nephrology saw the patient this hospital stay. He was started on prednisone 50 mg PO, blood sugars had to be tightly controlled with insulin levemir BID, ISS with novolog. Cr improved gradually. Blood pressures were uncontrolled with systolic 150-180 mmHg. He was started on hydralazine and losartan in addition to home medications. 24 H urine showed 12 gm protein. Due to continued improvement and stabilized sugars, patient was discharged back to [facility] with follow up with both facility provider and nephrology with blood pressure regimen and prednisone. At the time of discharge patient denied shortness of breath, n/v/d, fevers, chills, increased swelling, cough. ROS: Neg except for what is mentioned above. PAST MEDICAL HISTORY: type 1 Diabetes Nephrotic syndrome Minimal change disease Hypertension CKD Situs inversus totalis. asthma PAST SURGICAL HISTORY: Polyp removal bilateral ankle surgery with rods FAMILY HISTORY: Significant Family History: Diabetes SOCIAL HISTORY: Smoker: current smoker Alcohol: Denies Drugs: marijuana ALLERGIES: Please see below. DISCHARGE MEDICATIONS: Please see below. PHYSICAL EXAMINATION: VS: Please see below CONSTITUTIONAL: No acute distress, resting comfortably, AAO x 3 EYES: PERRLA, EOM intact HENT, MOUTH: Normocephalic, atraumatic, moist mucous membranes NECK: SUPPLE, no JVD, no lymphadenopathy, no carotid bruit CV: Regular rate and rhythm, S1S2 normal, no murmurs/rubs/gallops RESPIRATORY: Clear to auscultation bilaterally, no rales/rhonchi/wheezes GI: BS positive in 4 quadrants, soft, nontender, nondistended, no rebound or guarding, no organomegaly : Deferred MUSCULOSKELETAL: Normal ROM. No cyanosis, clubbing, swelling, joint deformity, +1 pitting lower extremity edema INTEGUMENTARY: Intact, no rashes, no lesions, no erythema NEUROLOGIC: Cranial Nerves II-XII are intact, no focal deficits PSYCHIATRIC: Mood and affect are normal CURRENT MEDICATIONS: Please see below LABORATORY DATA: Please see below IMAGING: None ASSESSMENT: 29 y/o M admitted for further treatment of nephrotic syndrome, acute renal failure superimposed on chronic kidney disease. PLAN: 1. Nephrotic syndrome -24H urine: 12 gms protein -Serum Cr further improved to 2.68 -C/w prednisone 50 mg PO daily -Nephrology following as outpatient 2. Acute renal failure superimposed on chronic kidney disease, dehydration due to hyperglycemia -Cr improving slowly -C/w treatment above -F/u with PCP, nephro o/p 3. Iron deficiency anemia -Iron studies show low iron -C/w iron supplementation, consider venofer IV as o/p 4. Uncontrolled hypertension -Increased to losartan 100 mg Po daily -C/w home meds +losartan 5. Uncontrolled diabetes -BS currently controlled with prednisone -levemir BID, ISS, AC/HS blood sugar checks, diabetic diet. DISPOSITION: Discharge today with f/u with facility provider and nephrology within 1-2 weeks after discharge. TIME SPENT ON DISCHARGE: Greater than 30 minutes. Vital Signs/I&Os Vital Signs Date Time Temp Pulse Resp B/P (MAP) Pulse Ox O2 Delivery O2 Flow Rate FiO2 01/01/20 12:00 96.2 89 20 160/80 (106) 97 Room Air I&O- Last 24 Hours up to 6 AM 01/01/20 06:00 Intake Total 1320 ml Output Total 0 ml Balance 1320 ml Laboratory Data Labs 24H Laboratory Tests 2 12/31/19 17:42: Bedside Glucose (Misc Panel) 126H 12/31/19 21:18: Bedside Glucose (Misc Panel) 326H 01/01/20 05:47: Immature Granulocyte % (Auto) 0.6, Neutrophils (%) (Auto) 75.3H, Lymphocytes (%) (Auto) 14.9L, Monocytes (%) (Auto) 9.1H, Eosinophils (%) (Auto) 0.0, Basophils (%) (Auto) 0.1, Neutrophils # (Auto) 13.4H, Lymphocytes # (Auto) 2.6, Monocytes # (Auto) 1.6H, Eosinophils # (Auto) 0.0, Basophils # (Auto) 0.0, Nucleated Red Blood Cells % (auto) 0.0, Anion Gap 6L, Glomerular Filtration Rate 37.1L, Calcium Level 8.9, Magnesium Level 1.7L 01/01/20 11:36: Bedside Glucose (Misc Panel) 140H CBC/BMP Laboratory Tests 01/01/20 05:47 FSBS Laboratory Tests Test 12/31/19 17:42 12/31/19 21:18 01/01/20 11:36 Range/Units Bedside Glucose (Misc Panel) 126 326 140 70-105 MG/DL Microbiology Microbiology 12/29/19 Blood Culture - Preliminary, Resulted No Growth after 48 hours. All Specime... 12/29/19 Blood Culture - Preliminary, Resulted No Growth after 48 hours. All Specime... Discharge Medications Scheduled Amlodipine Besylate (Amlodipine Besylate) 10 Mg Tablet, 10 MG PO DAILY, (Reported) Apixaban (Eliquis) 2.5 Mg Tablet, 2.5 MG PO DAILY, (Reported) Atorvastatin Calcium (Atorvastatin Calcium) 20 Mg Tablet, 20 MG PO QHS, (Reported) Carvedilol (Carvedilol) 12.5 Mg Tablet, 12.5 MG PO BID, (Reported) Esomeprazole Magnesium (Esomeprazole Magnesium) 40 Mg Capsule.dr, 40 MG PO DAILY, (Reported) Ferrous Sulfate (Ferrous Sulfate) 324 Mg Tablet.dr, 324 MG PO DAILY, (Reported) Insulin Glargine,Hum.rec.anlog (Lantus Solostar) 100 Unit/1 Ml Insuln.pen, 30 UNIT SC BID Inject 30 units SC BID Losartan Potassium (Cozaar) 50 Mg Tablet, 100 MG PO DAILY Magnesium Oxide (Magnesium Oxide) 400 Mg Tablet, 800 MG PO BID Prednisone (Prednisone) 50 Mg Tablet, 50 MG PO DAILY Scheduled PRN Albuterol Sulfate (Ventolin Hfa) 18 Gm Hfa.aer.ad, 2 PUFF INH QID PRN for SHORTNESS OF BREATH, (Reported) Allergies Coded Allergies: No Known Drug Allergies (Verified Allergy, Unknown, 12/29/19) SEASONAL ALLERGIES (Verified Allergy, Unknown, 09/01/18) Vandana Weaver MD Jan 01, 2020 15:52
--- NOTE | 2020-01-01 19:06 | IPN ---
DATE: 01/01/2020 Mr. Mead is seen this morning on his bedside. Corrections officers are present in the room. The patient is feeling well and wants to go back to group home. His hyperglycemia has improved and kidney function has also improved since admission. His blood pressure is still somewhat high and medications are being adjusted. However, the patient does not wish to stay in the hospital anymore. He was given intravenous iron yesterday, which he tolerated well and his lower extremity edema has improved. He is completely asymptomatic at this time. PHYSICAL EXAMINATION: Temperature 98.7 degrees Fahrenheit, heart rate 88 per minute and respiratory rate 18 per minute. Blood pressure 160/100 mmHg and oxygen saturation 97%. Head is atraumatic. Neck: Supple and without jugular venous distention (JVD) or thyroid enlargement. Heart sounds are regular and lungs clear to auscultation. Abdomen: Soft and nontender and bowel sounds are normal. Extremities have no cyanosis or clubbing. Peripheral edema has improved. Neurologically he is awake, alert and oriented times three. Today's labs show WBC count 17.7, hemoglobin 9.0 and hematocrit 26.6. Sodium 138, potassium 3.9, CO2 of 23, BUN 43 and creatinine 2.68. Glucose 132 and calcium 8.9. PROBLEMS: 1. Acute renal failure superimposed on chronic kidney disease. Kidney function has improved since admission, and the patient has no uremic symptoms. Angiotensin-converting enzyme (SHAHRAM) inhibitor was stopped on admission and angiotensin receptor maribel has been now started again since yesterday. 2. Uncontrolled hyperglycemia. Insulin has been adjusted and blood sugars are now much better controlled. He continues with prednisone for nephrotic syndrome and increased dose of insulin. 3. Nephrotic syndrome. The patient still has severe nephrotic syndrome with more than 12 grams of protein in his 24-hour urine. He has diabetic nephropathy and superimposed minimal change disease on his kidney biopsy. He will continue with prednisone 50 mg daily, and we have also started angiotensin receptor maribel. The patient will be followed up in the office after discharge. 4. Hypertension. Blood pressure is still high, and his medications are being adjusted. He should go back on his amlodipine, carvedilol and we have increased the losartan dose to 100 mg daily today. He will be followed up in the office for further adjustments. 5. Anemia. The patient had some iron deficiency due to recurrent blood loss. He is still on oral iron, and we also give him one dose of intravenous Injectafer yesterday. Anemia is gradually improving. 6. Disposition. From a renal standpoint, the patient can be discharged back to [facility] facility and will follow up in Dr. Connolly's office as an outpatient in 1 week.
[2020-01-02] MEDS ORDERED: LOSARTAN 50MG TABLET PO SCH (09:00)
== END 2020-01-01 14:10 | DRG 462 ==
LOC: M PCU 14:19
PROVIDERS: ADMIT Internal Medicine; ATTEND Internal Medicine
DX: N05.0 Unspecified nephritic syndrome with minor glomerular abnormality (principal); E10.22 Type 1 diabetes mellitus with diabetic chronic kidney disease; Q89.3 Situs inversus; N17.9 Acute kidney failure, unspecified; E87.5 Hyperkalemia; E10.65 Type 1 diabetes mellitus with hyperglycemia; N18.4 Chronic kidney disease, stage 4 (severe); I13.10 Hypertensive heart and chronic kidney disease without heart failure, with stage 1 through stage 4 chronic kidney disease, or unspecified chronic kidney disease; J45.909 Unspecified asthma, uncomplicated; I16.0 Hypertensive urgency; E86.0 Dehydration; Z79.01 Long term (current) use of anticoagulants; E78.5 Hyperlipidemia, unspecified; F17.200 Nicotine dependence, unspecified, uncomplicated; D63.1 Anemia in chronic kidney disease; Z79.4 Long term (current) use of insulin; Z79.52 Long term (current) use of systemic steroids; Z79.899 Other long term (current) drug therapy

== ENCOUNTER 2020-01-12 07:08 | Outpatient (CLI) | payer OTHER ==
[~2020-01-12] VITALS: Ht 185.4 cm; Wt 100.0 kg
[~2020-01-12 07:08] MED LIST changes: +COZA50TA PO; +ESOM1CAP5 PO; +FERR324T2 PO; +INSUHUMDS SC; +PRED50TA PO; +TRIA37.53 PO
[2020-01-12] MEDS ORDERED: NS 1,000 ML IV SCH (07:30)
[2020-01-12] MEDS ORDERED: EPINEPHrine INJ 1 MG/ML 1ML AMP IM PRN (07:30)
[2020-01-12] MEDS ORDERED: FERRIC CARBOXYMALTOSE INJ 750 MG in NS 250 ML IV ONE (07:30)
[2020-01-12] MEDS ORDERED: ALBUTEROL SULFATE 2.5 MG/0.5 ML INH NEB SOLN INH PRN (07:30)
[2020-01-12] MEDS ORDERED: diphenhydrAMINE 50MG/ML VIAL (J1200) IV PRN (07:30)
[2020-01-12] MEDS ORDERED: methylPREDNISolone 125MG 2ML VIAL IV PRN (07:30)
[2020-01-12 07:35] VITALS: BP 178/90
[2020-01-12 09:35] VITALS: BP 168/98
== END 2020-01-12 09:35 | disposition home or self-care (01) ==
LOC: M INFU 07:08
PROVIDERS: ATTEND Internal Medicine Nephrology
DX: D50.9 Iron deficiency anemia, unspecified (principal)
CPT/HCPCS: 96365; J1439

== ENCOUNTER → 2020-01-20 | Outpatient (CLI) | payer OTHER ==
[2020-01-20 16:12] LABS: BASO % 0.1 % (0.0-1.0); EOS % 0.4 % (0.0-3.0); HEMATOCRIT 26.3 % (42.0-52.0); HEMOGLOBIN 8.3 g/dl (13.5-17.5); LYMPH # 0.6 10^3/uL (1.5-5.0); LYMPH % 5.5 % (24.0-44.0); MEAN CORPUSCULAR HEMOGLOBIN 30.2 pg (27.0-33.0); MEAN CORPUSCULAR HGB CONC 31.6 g/dl (32.0-36.5); MEAN CORPUSCULAR VOLUME 95.6 fl (80.0-96.0); MONO # 0.2 10^3/uL (0.0-0.8); MONO % 1.5 % (0.0-5.0); NEUTROPHILS # 9.8 10^3/uL (1.5-8.5); NEUTROPHILS % 92.2 % (36.0-66.0); RED BLOOD COUNT 2.75 10^6/uL (4.30-6.10); WHITE BLOOD COUNT 10.7 10^3/uL (4.0-10.0)
[2020-01-20 16:24] LABS: APPEARANCE, URINE CLEAR (CLEAR); BACTERIA, URINE AUTO NEGATIVE (NEGATIVE); BILIRUBIN, URINE AUTO NEGATIVE (NEGATIVE); BLOOD, URINE BLOOD 1+ (NEGATIVE); COLOR, URINE STRAW (YELLOW); GLUCOSE, URINE (UA) AUTO NEGATIVE (NEGATIVE); KETONE, URINE AUTO NEGATIVE (NEGATIVE); LEUKOCYTE ESTERASE, URINE AUTO TRACE (NEGATIVE); NITRITE, URINE AUTO NEGATIVE (NEGATIVE); PROTEIN, URINE AUTO 3+ mg/dL (NEGATIVE); RBC, URINE AUTO 2 /HPF (0-3); SPECIFIC GRAVITY URINE AUTO 1.009 (1.002-1.035); SQUAMOUS EPITHELIAL CELL UR AU 1 /HPF (0-6); UROBILINOGEN, URINE AUTO 0.2 mg/dL (0.0-2.0); WBC, URINE AUTO 15 /HPF (0-3)
[2020-01-20 17:02] LABS: ALBUMIN 2.5 GM/DL (3.2-5.2); CALCIUM LEVEL 8.3 MG/DL (8.5-10.1); CREATININE FOR GFR 3.05 MG/DL (0.70-1.30); GLOMERULAR FILTRATION RATE 31.9 (>60); PHOSPHORUS LEVEL 2.8 MG/DL (2.5-4.9); POTASSIUM SERUM 5.4 MEQ/L (3.5-5.1); URIC ACID 5.5 MG/DL (3.5-7.2)
== END ==
LOC: M WUC 14:37
PROVIDERS: ATTEND Internal Medicine Nephrology
DX: N04.0 Nephrotic syndrome with minor glomerular abnormality (principal)

== ENCOUNTER → 2020-10-18 | Outpatient (CLI) | payer OTHER ==
[~2020-10-18] MED LIST changes: +LISI10TA22 PO; -LISI10TA4 PO; -MAG400TA PO; +MAGN400T35 PO
--- NOTE | 2020-10-18 13:19 | REP ---
INDICATION: ACUTE EMBOLISM, DVT?, PT IS INMATE IN CT WAITING AREA. COMPARISON: None. TECHNIQUE: Bilateral lower extremity duplex venous ultrasound. FINDINGS: The deep veins are anechoic and fully compressible from the groin to the popliteal fossa in the left and right lower extremity. Color flow imaging is homogeneous. Spectral Doppler interrogation demonstrates intact respiratory variation in flow and normal manual augmentation of flow. There is no evidence of deep vein thrombosis. There are 2 enlarged lymph nodes visible in the soft tissues of the right groin measured as follows: 3.5 x 0.8 x 2.1 cm, and 2.6 x 0.8 x 2.4 cm. IMPRESSION: Negative bilateral lower extremity duplex venous ultrasound. No evidence of deep vein thrombosis. There is lymphadenopathy in the right groin with 2 enlarged lymph nodes as above. <Electronically signed by Yoni Duff > 10/18/20 [id number]
== END ==
LOC: M RAD 10:54
PROVIDERS: ATTEND Physician Assistant Medical
DX: R59.0 Localized enlarged lymph nodes (principal)

== ENCOUNTER 2020-10-24 09:02 | Inpatient (IN) | payer OTHER ==
[2020-10-24] VITALS (10 sets, daily range): BP systolic 153–178; BP diastolic 79–113
[~2020-10-24] VITALS: Ht 180.3 cm; Wt 104.6 kg
[2020-10-24] MEDS: CARVedilol 12.5 MG TAB PO SCH ×2 (09:00→20:44)
[2020-10-24] MEDS: LEVEMIR (INSULIN DETEMIR) 1 UNITS/0.01ML SC SCH ×2 (09:00→21:00)
[2020-10-24] MEDS ORDERED: HYDR12.55 PO (09:11)
[2020-10-24] MEDS ORDERED: LANTINJ4 SC (09:50)
[2020-10-24] MEDS ORDERED: INSULADS SC (09:50)
[2020-10-24] MEDS ORDERED: LOSA100T50 PO (09:50)
[2020-10-24] MEDS ORDERED: HYDR50TAB PO (09:50)
[2020-10-24 10:00] LABS: BASO # 0.1 10^3/uL (0.0-0.2); BASO % 0.9 % (0.0-1.0); EOS # 0.3 10^3/uL (0.0-0.5); EOS % 3.3 % (0.0-3.0); LYMPH # 1.8 10^3/uL (1.5-5.0); LYMPH % 19.5 % (24.0-44.0); MEAN CORPUSCULAR HEMOGLOBIN 29.6 pg (27.0-33.0); MEAN CORPUSCULAR HGB CONC 31.8 g/dl (32.0-36.5); MEAN CORPUSCULAR VOLUME 93.1 fl (80.0-96.0); MONO # 0.8 10^3/uL (0.0-0.8); MONO % 8.2 % (2.0-8.0); NEUTROPHILS # 6.2 10^3/uL (1.5-8.5); NEUTROPHILS % 67.7 % (36.0-66.0); PLATELET COUNT, AUTOMATED 270 10^3/uL (150-450); RED BLOOD COUNT 2.16 10^6/uL (4.30-6.10); WHITE BLOOD COUNT 9.2 10^3/uL (4.0-10.0)
[2020-10-24 10:08] LABS: HEMATOCRIT 20.1 % (42.0-52.0); HEMOGLOBIN 6.4 g/dl (13.5-17.5)
[2020-10-24 10:10] LABS: INR 1.31; PROTHROMBIN TIME 16.6 SECONDS (12.5-14.3)
[2020-10-24] MEDS ORDERED: LOSARTAN 50MG TABLET PO ONE (10:10)
[2020-10-24] MEDS ORDERED: CARVedilol 12.5 MG TAB PO ONE (10:10)
[2020-10-24 10:11] LABS: PARTIAL THROMBOPLASTIN TIME 49.2 SECONDS (24.2-38.5)
[2020-10-24 10:37] LABS: RSV AMPLIFICATION NEGATIVE (NEGATIVE)
[2020-10-24 10:41] LABS: ALBUMIN 2.7 GM/DL (3.2-5.2); ALT/SGPT 29 U/L (12-78); BILIRUBIN,DIRECT < 0.1 MG/DL (0.0-0.2); BILIRUBIN,TOTAL 0.2 MG/DL (0.2-1.0); BLOOD UREA NITROGEN 57 MG/DL (7-18); CALCIUM LEVEL 8.5 MG/DL (8.5-10.1); CARBON DIOXIDE LEVEL 19 MEQ/L (21-32); CHLORIDE LEVEL 110 MEQ/L (98-107); CK-MB VALUE MASS 5.9 NG/ML (<3.6); CPK CREATINE PHOSPHOKINASE 1642 U/L (39-308); CREATININE FOR GFR 7.16 MG/DL (0.70-1.30); GLOMERULAR FILTRATION RATE 11.8 (>60); GLUCOSE, FASTING 85 MG/DL (70-100); LIPASE 55 U/L (73-393); MB/CK RELATIVE INDEX 0.36 (< OR =4); NT-PRO BNP 8358 PG/ML (<125); POTASSIUM SERUM 4.2 MEQ/L (3.5-5.1); SODIUM LEVEL 140 MEQ/L (136-145); TOTAL PROTEIN 7.9 GM/DL (6.4-8.2); TROPONIN I < 0.02 NG/ML (< 0.10)
--- NOTE | 2020-10-24 11:01 | REP ---
INDICATION: R/O DVT COMPARISON: 10/18/2020. TECHNIQUE: Real time compression and duplex Doppler interrogation of the bilateral lower extremity deep venous system is performed. FINDINGS: Bilaterally, the common femoral, superficial femoral and popliteal veins are fully compressible with transducer pressure and demonstrate normal spontaneous and phasic flow, without evidence of deep venous thrombosis. IMPRESSION: No evidence of deep venous thrombosis of the bilateral lower extremity femoral popliteal venous system. <Electronically signed by Maurice Tellez > 10/24/20 [id number]
--- NOTE | 2020-10-24 11:06 | REP ---
INDICATION: CHEST PAIN. COMPARISON: Comparison chest x-ray October 27, 2019. TECHNIQUE: Portable upright AP chest radiograph. FINDINGS: Patient has known situs inversus. The lungs are symmetrically aerated and clear. Pleural angles are sharp. The heart is more prominent than on the prior study, borderline in size.. There is a sliver of fissural fluid in the minor fissure on the left. There is soft tissue fullness in the paravertebral soft tissues of the lower thoracic spine just above the diaphragms of uncertain significance.. The azygos vein is enlarged similar to the prior study. A prior CT study from 2017 showed adenopathy. There is a little pleural thickening on the left. IMPRESSION: Soft tissue swelling in the paravertebral soft tissues adjacent to the lower thoracic spine. Question hiatal hernia or other etiology. Borderline heart size. Slight pleural thickening and fissural fluid on the left. Known situs inversus. Consider CT study of the chest.. <Electronically signed by Yoni Duff > 10/24/20 [id number]
[2020-10-24 11:13] LABS: HEMOGLOBIN A1c 6.6 %
[2020-10-24] MEDS ORDERED: FUROSEMIDE 100MG/10ML VIAL (J1940) IV ONE (12:00)
[2020-10-24] MEDS ORDERED: GLUCOSE 4GM CHEW TABLET PO PRN (12:20)
[2020-10-24] MEDS ORDERED: GLUCAGON INJ 1MG VIAL SC PRN (12:20)
[2020-10-24] MEDS ORDERED: DEXTROSE 50% 50 ML SYRINGE IV PRN (12:20)
[2020-10-24] MEDS ORDERED: ALBUTEROL 90 MCG/ACT 8GM HFA INHALER INH PRN (12:20)
[2020-10-24] MEDS ORDERED: hydrALAZINE 20MG/ML 1ML VIAL (J0360 PER 20MG) IV PRN (12:40)
--- NOTE | 2020-10-24 12:45 | HPEPDOC ---
[facility] Medical History & Physical Date of Admission Oct 24, 2020 Date of Service: Oct 24, 2020 Attending Physician: Vandana Weaver MD History and Physical CHIEF COMPLAINT: Increased shortness of breath and lower leg swelling HISTORY OF PRESENT ILLNESS: Patient is a 30-year-old male with PMH of type 1 diabetes, history of nephrotic syndrome, minimal change disease, hypertension, CKD stage III4, situs inversus totalis, asthma, chronic anemia, tobacco use who presented to [facility] emergency room from [facility] complaining of increased redness of breath and bilateral lower extremity swelling. The patient has been treated in the past for minimal change disease and nephrotic syndrome with steroids as inpatient and outpatient as well. He decided to stop going to nephrology as outpatient due to disagreement with treatment. Since May 2020 the patient has noticed increased bilateral lower extremity swelling along with increased shortness of breath especially with exertion. One week ago the patient was started with compression stockings and he stated to have increased right calf pain at that time. He's noticed a chronic cough sometimes productive of yellow sputum, increased weight gain along with increased swelling and shortness of breath. He denies decreased urine output, dysuria, oliguria, recent illnesses, recent sick contacts, chest pain, fevers, chills, lightheadedness, dizziness, headaches, decreased appetite. He does not have a prior cardiac history. He does not follow with a clinical office technician as outpatient. Due to the symptoms above the patient came to the ER for further evaluation today. In ER, VS were: BP 177-240/98-140, 91, 20, 100% on RA. CXR: Soft tissue swelling in the paravertebral soft tissues adjacent to the lower thoracic spine,? hiatal hernia or other etiology, borderline heart size, pleural thickening and fissural fluid on the left, known situs inversus, consider CT study of the chest. US lower ext b/l: neg for DVT. Negative labs included H&H 6.4/20.1 (baseline hemoglobin 89), occult blood negative, creatinine 7.160 (BL Cr 2-3.3), BUNs 57, CK 1642, troponin negative, BNP 8358. ECG showed normal sinus rhythm, atypical ECG similar to prior on file from 12/29/2019. On exam the patient had +3 pitting edema in the lower extremities he complained of right calf pain with squeezing; however ultrasound was ultimately negative above. Case was discussed with nephrology who will be consulting on case. The patient was admitted for acute on chronic renal failure, increasing lower extremity swelling, congestive heart failure with exacerbation. REVIEW OF SYSTEMS: Neg except for what is mentioned above PAST MEDICAL HISTORY: DM type I Nephrotic syndrome (stopped follow up with nephrology) Minimal change disease Hypertension CKD Stage 3-4 Situs inversus totalis asthma hx of tobacco use Chronic anemia likely to chronic disease Gum bleeding? PAST SURGICAL HISTORY: Polyp removal bilateral ankle surgery with screws/pins FAMILY HISTORY: Significant Family History: Diabetes SOCIAL HISTORY: Smoker for 15 years, 3 PPD. Quit 5 months ago. Denies alcohol or illicit drug use currently. Is currently incarcerated. Previously following with Dr. Connolly for nephrology, stopped coming. Full Code. ALLERGIES: Please see below. HOME MEDICATIONS: Please see below. PHYSICAL EXAMINATION: VS: BP 177-240/98-140, 91, 20, 100% on RA CONSTITUTIONAL: No acute distress, resting comfortably, AAO x 3 EYES: PERRLA, EOM intact HENT, MOUTH: Normocephalic, atraumatic, moist mucous membranes, poor dental hygiene NECK: SUPPLE, no JVD, no lymphadenopathy, no carotid bruit CV: Regular rate and rhythm, S1S2 normal, no murmurs/rubs/gallops RESPIRATORY: Clear to auscultation bilaterally, no rales/rhonchi/wheezes GI: BS positive in 4 quadrants, soft, nontender, nondistended, no rebound or guarding, no organomegaly : Deferred MUSCULOSKELETAL: Normal ROM. No cyanosis, clubbing, swelling, joint deformity, +3 pitting lower extremity edema INTEGUMENTARY: Intact, no rashes, no lesions, no erythema NEUROLOGIC: Cranial Nerves II-XII are intact, no focal deficits PSYCHIATRIC: Mood and affect are normal LABORATORY DATA: Please see below IMAGING: CXR: Soft tissue swelling in the paravertebral soft tissues adjacent to the lower thoracic spine. Question hiatal hernia or other etiology. Borderline heart size. Slight pleural thickening and fissural fluid on the left. Known situs inversus. Consider CT study of the chest. US b/l lower ext: No DVT ASSESSMENT: 30-year-old male with PMH of type 1 diabetes, history of nephrotic syndrome, minimal change disease, hypertension, CKD stage III4, situs inversus totalis, asthma, chronic anemia, hx tobacco use admitted for acute on chronic renal failure, increasing lower extremity swelling, acute on chronic anemia, congestive heart failure with exacerbation. PLAN: SOB r/o CHF with exacerbation -No prior hx of cardiac disease or CHF but +3 pitting edema in lower ext, BNP >8K. No crackles on exam -Trop neg -CXR above -F/u echocardiogram. No prior on file -Given 80 mg IV lasix, BB. Holding home ARB -Not currently on fluid restriction- consider adding -Daily wt, low salt diet, monitor I&O's closely, tele Hypertensive urgency likely 2/2 to fluid overload from worsening renal failure, ? CHF -BP 177-240/98-140 -Improved some in ER -S/p 80 mg IV lasix -Can add hydralazine PRN. C/w BB, CCB ESSENCE on CKD Stage 3-4 likely multifactorial to home medication, cannot r/o 2/2 to prior existing minimal change disease/nephrotic syndrome -Cr baseline 2-3.3, currently 7.16 -Stopping home ARB, HCTZ -Given 80 mg IV lasix here -No colmenares per nephrology, as patient is currently making good urine. -Monitor I&O's closely, U/O -Nephrology consulted Increasing lower extremity swelling possibly 2/2 to CHF vs. worsening ESSENCE on CKD Stage 3-4 -C/w plan above Acute on chronic HAYDEN, anemia of chronic disease -H/H 6.10/18, occult neg -No s/s of bleeding -Prior iron studies in 12/2019 showed low iron -Not currently on supplementation -F/u new iron studies for updated numbers -To receive 1 unit PRBC today per nephrology, caution with high BP and fluid status, f/u post-transfusion H/H. -Daily CBC DM type I -BS 85, conflicting lantus doses on home med rec- will ask pharmacy to verify -F/u lipid panel, repeat HbA1c -Lantus BID, ISS, AC/HS FS, consistent carb diet Situs inversus totalis -Stable Asthma -Stable on RA, not in exacerbation -Albuterol PRN Soft tissue mass on CXR -F/u CT chest without contrast DVT px -heparin SC DISPOSITION: Admitted under inpatient status to PCU. Nephrology consulted. When medically improved plan is discharge back to [facility]. Vital Signs Vital Signs Date Time Temp Pulse Resp B/P (MAP) Pulse Ox O2 Delivery O2 Flow Rate FiO2 10/24/20 10:32 91 177/98 10/24/20 09:03 97.3 20 100 Room Air Laboratory Data Labs 24H Laboratory Tests 2 10/24/20 09:34: Estimated Mean Plasma Glucose 143H, Hemoglobin A1c 6.6 10/24/20 09:38: Immature Granulocyte % (Auto) 0.4, Neutrophils (%) (Auto) 67.7H, Lymphocytes (%) (Auto) 19.5L, Monocytes (%) (Auto) 8.2H, Eosinophils (%) (Auto) 3.3H, Basophils (%) (Auto) 0.9, Neutrophils # (Auto) 6.2, Lymphocytes # (Auto) 1.8, Monocytes # (Auto) 0.8, Eosinophils # (Auto) 0.3, Basophils # (Auto) 0.1, Nucleated Red Blood Cells % (auto) 0.0, Prothrombin Time 16.6H, Prothromb Time International Ratio 1.31, Activated Partial Thromboplast Time 49.2H, Anion Gap 11, Glomerular Filtration Rate 11.8L, Lactic Acid Level 1.4, Calcium Level 8.5, Total Bilirubin 0.2, Direct Bilirubin < 0.1, Aspartate Amino Transf (AST/SGOT) 33, Alanine Aminotransferase (ALT/SGPT) 29, Alkaline Phosphatase 154H, Total Creatine Kinase 1642H, Creatine Kinase MB 5.9H, Creatine Kinase MB Relative Index 0.36, Troponin I < 0.02, GP-Lob-G-Type Natriuretic Peptide 8358H, Total Protein 7.9, Albumin 2.7L, Albumin/Globulin Ratio 0.5, Lipase 55L, Thyroid Stimulating Hormone (TSH) 2.530, Free Thyroxine 0.90, Coronavirus (COVID-19)(PCR) NEGATIVE, Influenza Type A (RT-PCR) NEGATIVE, Influenza Type B (RT-PCR) NEGATIVE, Respiratory Syncytial Virus (PCR) NEGATIVE CBC/BMP Laboratory Tests 10/24/20 09:38 Microbiology Microbiology 10/24/20 Blood Culture, Received Pending 10/24/20 Blood Culture, Received Pending Home Medications Scheduled Amlodipine Besylate (Amlodipine Besylate) 10 Mg Tablet, 10 MG PO DAILY Atorvastatin Calcium (Atorvastatin Calcium) 20 Mg Tablet, 20 MG PO QHS Carvedilol (Carvedilol) 12.5 Mg Tablet, 12.5 MG PO BID Hydrochlorothiazide (Hydrochlorothiazide) 50 Mg Tablet, 50 MG PO DAILY Insulin Glargine (Lantus) 100 Unit/1 Ml Vial, 20 UNIT SC QHS Insulin Glargine,Hum.rec.anlog (Lantus Solostar) 100 Unit/1 Ml Insuln.pen, 30 UNIT SC BID Inject 30 units SC BID Insulin Glargine,Hum.rec.anlog (Lantus Solostar) 100 Unit/1 Ml Insuln.pen, 36 UNITS SC QAM PER RN AT CORRECTIONAL FACILITY, HAS ONLY BEEN USING 20 UNITS AT BEDTIME Losartan Potassium (Losartan Potassium) 100 Mg Tablet, 100 MG PO DAILY Scheduled PRN Albuterol Sulfate (Ventolin Hfa) 18 Gm Hfa.aer.ad, 2 PUFF INH QID PRN for SHORTNESS OF BREATH Allergies Coded Allergies: No Known Drug Allergies (Verified Allergy, Unknown, 12/29/19) SEASONAL ALLERGIES (Verified Allergy, Unknown, 09/01/18) A-FIB/CHADSVASC A-FIB History Current/History of A-Fib/PAF?: No Current PO Anticoag Therapy: No Age/Risk Factor Scoring CHADSVASC: CHADSVASC Response (Comments) Value Age Risk Factor Age < 65 years old 0 Gender Risk Factor Male 0 Hx of CHF Yes 1 Hx of HTN Yes 1 Hx of Stroke/TIA/or VTE No 0 Hx of Diabetes Yes 1 Hx of Vascular Disease No 0 Total 3 Treatment Treatment ordered: Other Other anticoagulant ordered: heparin Vandana Weaver MD Oct 24, 2020 12:45
[2020-10-24 12:47] LABS: CHOLESTEROL LEVEL 115 MG/DL (<200); CHOLESTEROL RISK RATIO 2.346 (<5); FERRITIN 342 NG/ML (26-388); FREE T4 0.95 NG/DL (0.76-1.46); HDL CHOLESTEROL 49 MG/DL (>40); IRON (FE) 26 UG/DL (65-175); LDL CHOLESTEROL 50 MG/DL (<100); NON-HDL-C 66 MG/DL; PERCENT SATURATION 13.4 % (19.7-50.0); PHOSPHORUS LEVEL 6.1 MG/DL (2.5-4.9); TOTAL IRON BINDING CAPACITY 194 UG/DL (250-450); TRIGLYCERIDES LEVEL 81 MG/DL (<150)
[2020-10-24 12:49] LABS: PTH INTACT 425.6 PG/ML (18.5-88.0)
[2020-10-24 12:50] LABS: HEPATITIS B SURFACE ANTIBODY POSITIVE (POSITIVE)
[2020-10-24 13:00] LABS: HEPATITIS B SURFACE ANTIGEN NEGATIVE (NEGATIVE)
[2020-10-24 13:29] LABS: HEPATITIS B CORE ANTIBODY IGM NEGATIVE (NEGATIVE)
--- NOTE | 2020-10-24 14:00 | REP ---
INDICATION: soft tissue swelling chest, seen on CT. COMPARISON: 09/23/2016. TECHNIQUE: CT chest performed without the use of intravenous contrast. Sagittal and coronal reconstruction images are performed. FINDINGS: There is known situs inversus. There are interstitial fibrotic changes in both lung bases. There is mild pleural based density inferiorly and predominantly medially bilaterally, left greater than right. On the prior CT there was bibasilar consolidative infiltrate and mild left pleural fluid. I suspect the current findings represent mild pleural and parenchymal scarring bilaterally with possibly a small amount of loculated medial left pleural fluid. There is mild diffuse thickening along the pleural fissures. There is a small hiatal hernia. There is no gross adenopathy in the mediastinum. There is no axillary adenopathy. The heart is not significantly enlarged. There is no pericardial effusion. There is residual thymic tissue in the anterior mediastinum. There is a large azygous vein. The visualized upper abdominal structures are grossly unchanged. IMPRESSION: Mild pleural and parenchymal densities bilaterally in the lung bases are suspected to represent pleural and parenchymal scarring as discussed above, left greater than right. There may be a small amount of loculated left pleural fluid medially. There is a small hiatal hernia.. <Electronically signed by Maurice Tellez > 10/24/20 [id number]
[2020-10-24] MEDS ORDERED: SLF 3 ML SYR IV PRN (15:40)
[2020-10-24] MEDS: HumaLOG INSULIN (NovoLOG) PER UNIT SC SCH ×2 (17:30→21:00)
[2020-10-24] MEDS: (RENVELA) SEVELAMER **CARBONate** 800 MG TAB PO SCH (18:32)
[2020-10-24 19:52] LABS: HEMATOCRIT 23.6 % (42.0-52.0); HEMOGLOBIN 7.6 g/dl (13.5-17.5)
--- NOTE | 2020-10-24 20:09 | ECGEPIP ---
[facility] - ED Test Date: 2020-10-24 Pat Name: HOLLIS HIGGINS Department: Room: - Gender: Male Motor Vehicle Representative: JAVON : 1990 Requested By: Luke Teresa Order Number: [id number] Reading MD: Dean Keen Measurements Intervals [place] Rate: 89 P: 104 CT: 148 QRS: 161 QRSD: 94 T: 83 QT: 386 QTc: 469 Interpretive Statements arm lead reversal SINUS RHYTHM Unacceptable tracing for interpretation Electronically Signed on 10-24-2020 20:08:45 EDT by Dean Keen
[2020-10-24] MEDS: HEPARIN SOD (PORCINE) 5000UNITS/ML 1ML VIAL/SYRINGE SC SCH (20:43)
[2020-10-24] MEDS: ACETAMINOPHEN TAB 650MG DOSE (2X325MG) PO PRN (20:44)
[2020-10-24] MEDS: ATORVASTATIN 20 MG TAB PO SCH (20:44)
[2020-10-24] MEDS ORDERED: FUROSEMIDE 40MG/4ML VIAL (J1940) IV ONE (21:00)
[2020-10-24] MEDS ORDERED: LEVEMIR (INSULIN DETEMIR) 1 UNITS/0.01ML SC ONE (21:10)
[2020-10-24] MEDS: SLF 3 ML SYR IV SCH (21:22)
[2020-10-25] VITALS (14 sets, daily range): BP systolic 136–172; BP diastolic 79–104
[2020-10-25] MEDS: ACETAMINOPHEN TAB 650MG DOSE (2X325MG) PO PRN ×4 (03:27→22:56)
[2020-10-25 03:46] LABS: APPEARANCE, URINE CLEAR (CLEAR); BACTERIA, URINE AUTO NEGATIVE (NEGATIVE); BILIRUBIN, URINE AUTO NEGATIVE (NEGATIVE); BLOOD, URINE BLOOD 1+ (NEGATIVE); COLOR, URINE COLORLESS (YELLOW); GLUCOSE, URINE (UA) AUTO NEGATIVE (NEGATIVE); KETONE, URINE AUTO NEGATIVE (NEGATIVE); LEUKOCYTE ESTERASE, URINE AUTO NEGATIVE (NEGATIVE); NITRITE, URINE AUTO NEGATIVE (NEGATIVE); PROTEIN, URINE AUTO 3+ mg/dL (NEGATIVE); RBC, URINE AUTO 5 /HPF (0-3); SPECIFIC GRAVITY URINE AUTO 1.005 (1.002-1.035); SQUAMOUS EPITHELIAL CELL UR AU 0 /HPF (0-6); UROBILINOGEN, URINE AUTO 0.2 mg/dL (0.0-2.0); WBC, URINE AUTO 2 /HPF (0-3)
[2020-10-25 05:14] LABS: HEMATOCRIT 21.3 % (42.0-52.0); HEMOGLOBIN 7.1 g/dl (13.5-17.5); MEAN CORPUSCULAR HGB CONC 33.3 g/dl (32.0-36.5); MEAN CORPUSCULAR VOLUME 89.9 fl (80.0-96.0); PLATELET COUNT, AUTOMATED 259 10^3/uL (150-450); RED BLOOD COUNT 2.37 10^6/uL (4.30-6.10); WHITE BLOOD COUNT 9.6 10^3/uL (4.0-10.0)
[2020-10-25] MEDS: SLF 3 ML SYR IV SCH ×3 (05:16→21:20)
[2020-10-25 05:22] LABS: CREATININE,RANDOM URINE 26.6 MG/DL; TOTAL PROTEIN,RANDOM URINE 297.8 MG/DL (0.0-12.0)
[2020-10-25 05:38] LABS: ALBUMIN 2.3 GM/DL (3.2-5.2); BILIRUBIN,TOTAL 0.3 MG/DL (0.2-1.0); CALCIUM LEVEL 7.9 MG/DL (8.5-10.1); CREATININE FOR GFR 6.71 MG/DL (0.70-1.30); GLOMERULAR FILTRATION RATE 12.8 (>60); TOTAL PROTEIN 7.1 GM/DL (6.4-8.2)
[2020-10-25] MEDS: HumaLOG INSULIN (NovoLOG) PER UNIT SC SCH ×4 (07:17→21:00)
[2020-10-25] MEDS: CARVedilol 12.5 MG TAB PO SCH ×2 (08:34→21:01)
[2020-10-25] MEDS: (RENVELA) SEVELAMER **CARBONate** 800 MG TAB PO SCH ×3 (08:34→18:37)
[2020-10-25] MEDS: HEPARIN SOD (PORCINE) 5000UNITS/ML 1ML VIAL/SYRINGE SC SCH (08:35)
--- NOTE | 2020-10-25 08:54 | ECHO ---
DATE OF PROCEDURE: 10/24/2020 REFERRING PHYSICIAN: DEBBI SEN MD INDICATION: Congestive heart failure. Age: 30 Gender: Male Height: 180 cm Weight: 110 kg MEASUREMENTS: IVS 1.6 cm LV 4.5 cm LVPW 1.3 cm LA 4.4 cm Aorta 3.6 cm IVC 1.8 cm DOPPLER MEASUREMENT Mitral E wave velocity 124 Mitral A wave 121 FINDINGS: This study is of fair technical quality. The patient is in sinus rhythm. He has dextrocardia, so the imaging was performed on the right side of the chest. Left ventricle is normal size. There is moderate left ventricular hypertrophy and normal LV systolic function. Estimated LVF is approximately 60% to 65%. The right ventricle has normal size and systolic function. The left atrium is mildly enlarged. The right atrium appears normal. Aortic, mitral, tricuspid, and pulmonic valves were all reasonably well seen and appeared normal. No significant pericardial effusion is noted. Inferior vena cava is of normal size and appropriately collapses with inspiration. Aortic root is normal. Aortic arch and abdominal aorta were not well seen. Doppler interrogation reveals competent aortic valve. There is mild mitral and mild tricuspid insufficiency. Calculated pulmonary artery pressure is in the low 40s corresponding to moderate pulmonary hypertension. Trace pulmonic insufficiency is seen. Evaluation of diastolic function was inconclusive because tissue Doppler velocities of mitral annulus were not measured, but based on mitral inflow pattern, I suspect normal diastolic function. CONCLUSIONS: 1. Study is of acceptable technical quality considering the patient's body habitus and dextrocardia. Underlying sinus rhythm. 2. Normal LV size with moderate left ventricular hypertrophy and normal LV systolic function. Probably normal diastolic function. 3. No significant valvular disease. 4. Likely normal central venous pressure and moderate pulmonary hypertension. MTDD
[2020-10-25] MEDS ORDERED: CEPHALEXIN 500 MG CAP PO SCH (09:00)
[2020-10-25] MEDS ORDERED: IRON SUCROSE 200 MG in NS 100 ML IV SCH (09:00)
[2020-10-25] MEDS: LEVEMIR (INSULIN DETEMIR) 1 UNITS/0.01ML SC SCH ×2 (09:16→21:00)
--- NOTE | 2020-10-25 10:24 | CR ---
NEPHROLOGY CONSULTATION DATE: 10/24/2020 REQUESTING PHYSICIAN: Vandana Weaver M.D. REASON FOR CONSULTATION: Management of acute renal failure superimposed on chronic kidney disease. HISTORY OF PRESENT ILLNESS: Karlo Mead is a 30-year-old -Mexican male who is incarcerated at this time. He was brought from the prison because of progressive shortness of breath and lower extremity edema. He is well-known to myself because of previous hospitalization and outpatient nephrology clinic as well. This gentleman is type 1 diabetic for many years. He has history of nephrotic syndrome. Extensive workup was done during previous hospitalization including a kidney biopsy, which showed extensive diabetic nephropathy. Photon electron microscopy minimal change disease was not ruled out. He has history of hypertension and baseline chronic kidney disease stage III to early stage IV with a creatinine of 3 as of December 2019. He has situs inversus totalis. I was seeing him in the clinic and I was trying prednisone to see if his minimal change disease would respond to the steroids. However, because of prednisone, his sugar levels were uncontrolled. He was unable to manage his diabetes in the prison and ultimately, patient stopped following up with us. At that time, he actually was terminated from the clinic. I have not seen the patient since December of last year. He just presented to the emergency room today with progressive shortness of breath and lower extremity edema. He was found to have hypertensive urgency in the emergency room. Blood pressures were more than 200. He was severely anemic, with a hemoglobin of 6.4 on arrival. He had a creatinine of 7.1. Nephrology service was called for further help in the management of this patient. Patient needed my immediate attention. I went and evaluated the patient in the emergency room. He was given an initial dose of antihypertensives. His blood pressure was slightly better. Patient was able to provide me with the history. PAST MEDICAL HISTORY: 1. Diabetes mellitus type 1. 2. History of nephrotic syndrome; biopsy showed diabetic nephropathy, but minimal change disease was not ruled out. 3. History of hypertension. 4. Baseline chronic kidney disease (CKD) stage III to at least stage IV; creatinine of 3 as a baseline as of last year. 5. Situs inversus totalis. 6. History of asthma. 7. History of tobacco use. 8. Anemia secondary to chronic kidney disease. PAST SURGICAL HISTORY: 1. Status post polyp removal in the past. 2. History of renal biopsy during previous hospitalization last year. 3. Bilateral ankle surgery with screws and pins in the past. ALLERGIES: No known drug allergies. FAMILY HISTORY: No significant family history of end-stage renal disease. There is a positive history of diabetes in the family members. SOCIAL HISTORY: Patient is currently incarcerated. He reports that he quit smoking five months ago. REVIEW OF SYSTEMS: CONSTITUTIONAL: He denies any fevers or chills. EYES: Denies any blurry vision or double vision. EARS, NOSE AND THROAT (ENT): Denies any dysphagia or odynophagia. CARDIOVASCULAR: He reports lower extremity edema and shortness of breath. RESPIRATORY: He denies any cough but does report progressive shortness of breath. GASTROINTESTINAL: Denies any nausea or vomiting. He does report decreased appetite. GENITOURINARY: He reports decreased urinary output. MUSCULOSKELETAL: He reports lower extremity edema. ENDOCRINE: He reports insulin dependent diabetes. HEMATOLOGICAL/ONCOLOGICAL: He denies any easy bleeding or bruising. PSYCHIATRIC: He denies any depression or anxiety. All other review of systems is negative. PHYSICAL EXAMINATION: GENERAL: Patient is awake, alert, oriented times three, laying in bed. VITAL SIGNS: Temperature 98.4 degrees Fahrenheit, blood pressure 174/108, pulse 88, respiratory rate 22, saturating 99% on room air. HEAD AND NECK EXAM: Extraocular muscles intact. Pupils equally round and reactive to light. He has conjunctival pallor. Mucous membranes are moist. Neck is supple. Mildly elevated jugular venous distention (JVD). CARDIOVASCULAR: S1, S2. Regular rate. There is 2+ edema of the bilateral lower extremities. RESPIRATORY: Chest is clear to auscultation bilaterally. Bilateral equal air entry. No rales or rhonchi. ABDOMEN: Soft. Obese. Positive bowel sounds. Nontender. No organomegaly. MUSCULOSKELETAL: No clubbing or cyanosis. There is 2+ edema of the lower extremities, as mentioned above. CENTRAL NERVOUS SYSTEM (BOOM MASTER): No focal deficits. Power is 5/5 in all extremities. LABORATORY REVIEW: CBC showed a WBC 9.2, hemoglobin 6.4, platelets 270. INR is 1.3. Urinalysis is not available. BMP showed sodium 140, potassium 4.2, chloride 110, bicarbonate 19, BUN 57, creatinine 7.1, glucose 85, calcium 8.5, phosphorus 6.1. A1C 6.6. Iron 226, total iron binding capacity (TIBC) 194, transferrin saturation 13.4, ferritin 342. AST 33, ALT 29, alkaline phosphatase 154. BNP 8358. TSH 2.5. PTH 425. SEROLOGY: Hepatitis B and C is negative. MICROBIOLOGY: Blood cultures are pending. IMAGING DATA: A CT of the chest was done today without contrast. It showed mild pleural and parenchymal densities bilaterally in the lung bases, suspected to represent pleural and parenchymal scarring, left greater than right; small amount of loculated left pleural fluid; small hiatal hernia. Doppler of the bilateral lower extremities was negative for deep venous thrombosis (DVT). HOME MEDICATIONS: Patient home medications include: - albuterol as needed - amlodipine 10 mg by mouth daily - atorvastatin 20 mg at bedtime - Coreg 12.5 mg by mouth twice a day - hydrochlorothiazide 50 mg by mouth daily - insulin Lantus 20 units subcutaneous daily - insulin Lantus 36 units in the morning - losartan 100 mg by mouth daily CURRENT INPATIENT MEDICATIONS: Patient's medications are all reviewed by myself. He has been started on: - amlodipine 10 mg by mouth daily - atorvastatin 20 mg at bedtime - Coreg 12.5 mg by mouth twice a day - I gave him a dose of Lasix 50 mg intravenous (IV) times one dose - He has been started on hydralazine 10 mg IV every 8 hours as needed - He was given a dose of hydrochlorothiazide 50 mg by mouth times one dose - He is on insulin Levemir 20 units subcutaneous twice a day - insulin Lispro sliding scale - He was already given losartan 100 mg in the emergency room ASSESSMENT AND PLAN: 1. Acute renal failure. It is most likely worsening of his diabetic nephropathy with plus/minus minimal change disease. His baseline creatinine was 3. He came to the hospital today with a creatinine of 7. Patient was taking angiotensin receptor maribel. I am going to hold the angiotensin receptive maribel and see if his renal function improves a little bit. Otherwise, there is a very high possibility that patient will need dialysis during this hospitalization. 2. Severe symptomatic anemia. Patient has iron deficiency and anemia of chronic kidney disease. Because of highly elevated blood pressure, I would avoid aggressive transfusion at this time. One unit of packed red blood cells (PRBC) should be okay. I will give him IV iron starting tomorrow and he will be started on erythropoiesis-stimulating agent (MARILYN) once his blood pressures are better. 3. Hypertensive urgency. Most likely, patient was noncompliant and he has evidence of volume overload and he has renal failure as well. Okay to continue current dose of amlodipine, Coreg and as needed hydralazine. Avoid use of angiotensin receptor blockers while patient is in renal failure. 4. Normal anion gap metabolic acidosis. It is secondary to renal failure. Bicarbonate level is slightly low. No need of bicarbonate administration at this time. 5. Secondary hyperparathyroidism. Patient is going to be started on calcitriol Saturday, Saturday and Saturday. 6. Hyperphosphatemia. Patient is being started on Renvela with meals. 7. Insulin dependent diabetes with diabetic nephropathy. Continue current dose of insulin sliding scale and insulin Levemir. Avoid use of metformin in the patient with renal failure. 9. History of nephrotic syndrome and lower extremity edema. Patient was given a dose of IV Lasix. Repeat urinalysis and urine protein creatinine has been ordered. I am not ordering any other serology at this time, since patient already had extensive workup during previous hospitalization and he had a renal biopsy as well.
[2020-10-25] MEDS ORDERED: FUROSEMIDE 100MG/10ML VIAL (J1940) IV ONE (12:00)
--- NOTE | 2020-10-25 14:25 | IPNPDOC ---
Text Note Date of Service The patient was seen on 10/25/20. NOTE SUBJECTIVE: -No acute issues overnight PHYSICAL EXAMINATION: VS: see below CONSTITUTIONAL: No acute distress, resting comfortably, AAO x 3 EYES: PERRLA, EOM intact HENT, MOUTH: Normocephalic, atraumatic, moist mucous membranes, poor dental hygiene NECK: SUPPLE, no JVD, no lymphadenopathy, no carotid bruit CV: Regular rate and rhythm, S1S2 normal, no murmurs/rubs/gallops RESPIRATORY: Clear to auscultation bilaterally, no rales/rhonchi/wheezes GI: BS positive in 4 quadrants, soft, nontender, nondistended, no rebound or guarding, no organomegaly EXT: WWP with improving pitting lower extremity edema bilaterally, has RLE calf pain SKIN: Intact, no rashes, no lesions, no erythema NEUROLOGIC: Cranial Nerves II-XII are intact, no focal deficits PSYCHIATRIC: Mood and affect are normal LABORATORY DATA: WBC 9.6 Hgb 7.1 Platelets 259 Na 140 K 4 Cr 6.71 CK 1642 Phos 5.9 IMAGING: CXR: Soft tissue swelling in the paravertebral soft tissues adjacent to the lower thoracic spine. Question hiatal hernia or other etiology. Borderline heart size. Slight pleural thickening and fissural fluid on the left. Known situs inversus. Consider CT study of the chest. 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 PLAN: SOB r/o CHF with exacerbation -No prior hx of cardiac disease or CHF but +3 pitting edema in lower ext, BNP >8K. 2/2 low oncotic pressure 2/2 LEO with nephrotic range proteinuria -Trop neg -CXR above -F/u echocardiogram. No prior on file -Will give 2 more units of blood, with nephrology dosing the loop diuretic -Continue holding home ARB -2L/24h -Daily wt, low salt diet, monitor I&O's closely, tele Hypertensive urgency likely 2/2 to fluid overload from worsening renal failure: much improved -BP 177-240/98-140 -Improved some in ER -S/p 80 mg IV lasix -C/w BB, CCB ESSENCE on CKD Stage 3-4 likely multifactorial to home medication, cannot r/o 2/2 to prior existing minimal change disease/nephrotic syndrome -Cr baseline 2-3.3, currently 7.16 -Holding home ARB, HCTZ -Nephrology dosing IV lasix -Monitor I&O's closely, U/O -Nephrology consulted Increasing lower extremity swelling likely 2/2 nephrotic range proteinuria with third spacing with worsening ESSENCE on CKD Stage 3-4 -will give blood and lasix this AM -nephrology consulted -Urine protein already ordered. May need steroids etc if proteinuria is severe. Will discuss with nephrology R calf pain: -Exam not c/w cellulitis, no leukocytosis, chronicity of pain is >1m, will dc antibiotics -c/f clot, will continue the eliquis that was started by nephrology -Unfortunately the LE doppler does not go below the popliteals Acute on chronic HAYDEN, anemia of chronic disease -H/H 6.10/18, occult neg -No s/s of bleeding -Prior iron studies in 12/2019 showed low iron -Not currently on supplementation -F/u new iron studies for updated numbers -To receive 2 more units of PRBC today, for total 4u thus far -Daily CBC DM type I -BS 85 -F/u lipid panel, repeat HbA1c -Lantus 10u BID, ISS, AC/HS FS, consistent carb diet Situs inversus totalis -Stable Asthma -Stable on RA, not in exacerbation -Albuterol PRN Soft tissue mass on CXR -F/u CT chest without contrast DVT px -heparin SC DISPOSITION: Admitted under inpatient status to PCU. Nephrology consulted. When medically improved plan is discharge back to halfway. VS,Fishbone, I+O VS, Fishbone, I+O Laboratory Tests 10/24/20 09:38 10/24/20 19:18 10/25/20 04:44 Vital Signs Date Time Temp Pulse Resp B/P (MAP) Pulse Ox O2 Delivery O2 Flow Rate FiO2 10/25/20 08:34 94 136/79 10/25/20 07:31 98.5 18 96 Room Air I&O- Last 24 Hours up to 6 AM 10/25/20 06:00 Intake Total 1570 ml Output Total 4150 ml Balance -2580 ml DAVID JOYNER MD Oct 25, 2020 09:03
[2020-10-25 20:15] LABS: HEMATOCRIT 25.1 % (42.0-52.0); HEMOGLOBIN 8.6 g/dl (13.5-17.5)
[2020-10-25] MEDS ORDERED: LEVEMIR (INSULIN DETEMIR) 1 UNITS/0.01ML SC ONE (20:35)
--- NOTE | 2020-10-25 20:44 | IPN ---
NEPHROLOGY PROGRESS NOTE DATE: 10/25/2020 SUBJECTIVE: Patient was seen and examined at the bedside today morning. He was afebrile and hemodynamically stable. He was given I.V. Lasix yesterday with 2 units of PRBC transfusion. He made more than 3 liters of urine yesterday. Renal function is slightly better today as compared with yesterday. He reports persistent right calf pain. Otherwise, denies any active complaints. OBJECTIVE: VITAL SIGNS: Temperature 97.8 degrees Fahrenheit, blood pressure 156/100, pulse 92, respiratory rate 18, saturating 97% on room air. INTAKE AND OUTPUT: Urine output recorded as 3.1 liters yesterday and 2.1 liters so far today since overnight. Weight in the bed scale is 105 kg. PHYSICAL EXAMINATION: GENERAL: Patient is awake, alert and oriented x3, lying in bed, in no apparent distress. HEAD/NECK: Extraocular muscles intact. Pupils equally round and reactive to light. Mucous membranes are moist. Neck is supple. There is no significant JVD. RESPIRATORY: Chest is clear to auscultation bilaterally. Bilateral equal air entry. No rales or rhonchi. CARDIOVASCULAR: S1, S2, regular rate. 1+ edema of the bilateral lower extremities. ABDOMEN: Soft, positive bowel sounds, nontender. No organomegaly. MUSCULOSKELETAL: Patient has tenderness at the right calf on mild palpation. I could not appreciate any erythema because of dark skin pigmentation. 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 Power is 5/5 in all extremities. LABORATORY REVIEW: CBC showed WBC 9.6, hemoglobin 7.1, platelets 259,000. Urine random protein 297. Creatinine 26.6 and it randomly translates into at least 10 grams of protein. BMP today showed sodium 140, potassium 4, chloride 109, bicarb 22, BUN 57, creatinine 6.7; it was 7.1 yesterday. Sugar 49. Calcium 7.9. Phosphorus 5.9. Albumin 2.3. CURRENT INPATIENT MEDICATIONS: Patient's medications were all reviewed by myself. His Venofer infusions have been stopped because he is getting more PRBC transfusions. He has been started on Eliquis 5 mg p.o. twice a day. He was given another dose of Lasix 60 mg I.V. times one dose. Levemir dose has been changed to 10 units subq twice a day. ASSESSMENT AND PLAN: 1. Acute renal failure superimposed on chronic kidney disease: Patient has baseline diabetic nephropathy plus/minus minimal change disease, failed outpatient steroid therapy because of noncompliance. Creatinine is slightly better today. Volume status is getting better. I will watch his renal function at least for the next 1-2 days. If renal function continues to improve, I would hold off on dialysis. Otherwise patient will need to get tunneled dialysis catheter for initiation of hemodialysis. 2. Severe symptomatic anemia: He was iron deficient as well. Initially Venofer was ordered but since he is getting 4 units of blood, I am holding off on the I.V. iron. If GFR stays below 15, he would likely need initiation of MARILYN therapy as well. 3. Hypertension with chronic kidney disease: Patient's blood pressures are better controlled. Continue current dose of Coreg and Amlodipine. Avoid further use of SHAHRAM inhibitors or angiotensin receptor blockers. 4. Normal anion gap metabolic acidosis: It is slightly better today as compared with yesterday. No need of bicarbonate administration at this time. 5. Secondary hyperparathyroidism: Continue current dose of Calcitriol Saturday, Saturday, Saturday. 6. Hyperphosphatemia: It is getting better with current dose of Renvela. 7. Insulin dependent diabetes with hypoglycemia: He is in renal failure. He requires a smaller dose of insulin. Levemir dose has been decreased by medical team. 8. History of nephrotic syndrome and lower extremity edema: Patient was given another dose of I.V. Lasix. Continue statin. 9. Right calf tenderness: Patient had a Doppler done earlier on the admission, which was negative for DVT. I am unsure if patient has superficial vein thrombosis versus cellulitis. Calf is quite tender. I am empirically starting the patient on Keflex and he has already been started on Eliquis 5 mg p.o. twice a day for prevention of DVT in the setting of nephrotic syndrome.
[2020-10-25] MEDS ORDERED: APIXABAN 2.5 MG TAB (ELIQUIS) PO SCH (21:00)
[2020-10-25] MEDS: ATORVASTATIN 20 MG TAB PO SCH (21:01)
[2020-10-25] MEDS: APIXABAN 5 MG TAB (ELIQUIS) PO SCH (21:01)
[2020-10-26] VITALS (8 sets, daily range): BP systolic 156–182; BP diastolic 72–110
[2020-10-26 05:16] LABS: HEMATOCRIT 25.5 % (42.0-52.0); HEMOGLOBIN 8.5 g/dl (13.5-17.5); MEAN CORPUSCULAR HEMOGLOBIN 29.5 pg (27.0-33.0); MEAN CORPUSCULAR HGB CONC 33.3 g/dl (32.0-36.5); MEAN CORPUSCULAR VOLUME 88.5 fl (80.0-96.0); PLATELET COUNT, AUTOMATED 241 10^3/uL (150-450); RED BLOOD COUNT 2.88 10^6/uL (4.30-6.10)
[2020-10-26] MEDS: SLF 3 ML SYR IV SCH ×3 (05:17→20:53)
[2020-10-26 05:43] LABS: ALBUMIN 2.3 GM/DL (3.2-5.2); ALT/SGPT 20 U/L (12-78); BILIRUBIN,TOTAL 0.2 MG/DL (0.2-1.0); BLOOD UREA NITROGEN 57 MG/DL (7-18); CALCIUM LEVEL 8.1 MG/DL (8.5-10.1); CARBON DIOXIDE LEVEL 20 MEQ/L (21-32); CHLORIDE LEVEL 111 MEQ/L (98-107); CREATININE FOR GFR 6.76 MG/DL (0.70-1.30); GLOMERULAR FILTRATION RATE 12.7 (>60); GLUCOSE, FASTING 85 MG/DL (70-100); POTASSIUM SERUM 3.9 MEQ/L (3.5-5.1); SODIUM LEVEL 140 MEQ/L (136-145); TOTAL PROTEIN 7.3 GM/DL (6.4-8.2)
[2020-10-26] MEDS: HumaLOG INSULIN (NovoLOG) PER UNIT SC SCH ×4 (07:30→20:54)
[2020-10-26] MEDS: (RENVELA) SEVELAMER **CARBONate** 800 MG TAB PO SCH ×3 (08:12→18:15)
[2020-10-26] MEDS: ACETAMINOPHEN TAB 650MG DOSE (2X325MG) PO PRN ×3 (08:13→20:52)
[2020-10-26] MEDS: CARVedilol 12.5 MG TAB PO SCH ×2 (08:14→20:53)
[2020-10-26] MEDS: APIXABAN 5 MG TAB (ELIQUIS) PO SCH ×2 (08:14→20:52)
[2020-10-26] MEDS: LEVEMIR (INSULIN DETEMIR) 1 UNITS/0.01ML SC SCH (09:00)
[2020-10-26] MEDS ORDERED: CALCITRIOL 0.25 MCG CAP (S0169) PO SCH (09:00)
[2020-10-26] MEDS ORDERED: DARBEPOETIN 200MCG/0.4ML *NON-DIALYSIS* SYRINGE (J0881 PER 1MCG) SC SCH (09:00)
[2020-10-26 13:02] LABS: HIV 1&2 SCREEN CENTAUR NEGATIVE (NEGATIVE)
--- NOTE | 2020-10-26 13:07 | IPNPDOC ---
Text Note Date of Service The patient was seen on 10/26/20. NOTE SUBJECTIVE: -No acute issues overnight PHYSICAL EXAMINATION: VS: see below CONSTITUTIONAL: No acute distress, resting comfortably, AAO x 3 EYES: PERRLA, EOM intact HENT, MOUTH: Normocephalic, atraumatic, moist mucous membranes, poor dental hygiene NECK: SUPPLE, no JVD, no lymphadenopathy, no carotid bruit CV: Regular rate and rhythm, S1S2 normal, no murmurs/rubs/gallops RESPIRATORY: Clear to auscultation bilaterally, no rales/rhonchi/wheezes GI: BS positive in 4 quadrants, soft, nontender, nondistended, no rebound or guarding, no organomegaly EXT: WWP with pitting lower extremity edema bilaterally that has drastically improved, has RLE calf pain without lesions or surrounding induration, warmth or erythema SKIN: Intact, no rashes, no lesions, no erythema NEUROLOGIC: Cranial Nerves II-XII are intact, no focal deficits PSYCHIATRIC: Mood and affect are normal LABORATORY DATA: WBC 10 Hgb 8.5 Platelets 241 Na 140 K 3.9 Cr 6.76 Phos 6 IMAGING: CXR: Soft tissue swelling in the paravertebral soft tissues adjacent to the lower thoracic spine. Question hiatal hernia or other etiology. Borderline heart size. Slight pleural thickening and fissural fluid on the left. Known situs inversus. Consider CT study of the chest. US b/l lower ext: No DVT TTE: 1. Study is of acceptable technical quality considering the patient's body habitus and dextrocardia. Underlying sinus rhythm. 2. Normal LV size with moderate left ventricular hypertrophy and normal LV systolic function. Probably normal diastolic function. 3. No significant valvular disease. 4. Likely normal central venous pressure and moderate pulmonary hypertension. 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 PLAN: SOB likely 2/2 nephrosis with third spacing -No prior hx of cardiac disease or CHF but +3 pitting edema in lower ext, BNP >8K. 2/2 low oncotic pressure 2/2 LEO with nephrotic range proteinuria -Trop neg -CXR above -TTE with normal systolic and diastolic function. Has some noted pulm HTN -s/p 4 units of blood, with nephrology dosing loop diuretic -Continue holding home ARB -2L/24h fluid restriction -Daily wt, low salt diet, monitor I&O's closely, tele Hypertensive urgency likely 2/2 to fluid overload from worsening renal failure: improved -nephrology giving IV lasix PRN, none today -C/w BB, CCB and now adding hydral 25Q8H ESSENCE on CKD Stage 3-4 likely multifactorial to home medication, cannot r/o 2/2 to prior existing minimal change disease/nephrotic syndrome -Cr baseline 2-3.3, currently 7.16 -Holding home ARB, HCTZ -Nephrology dosing IV lasix PRN, none today -Monitor I&O's closely, U/O -Nephrology consulted Lower extremity swelling likely 2/2 nephrotic range proteinuria with third spacing with worsening ESSENCE on CKD Stage 3-4: improving -ongoing diuresis per nephrology PRN, none today -Urine protein ordered. May need steroids etc if proteinuria is severe. Nephrology onboard R calf pain: possibly has post-popliteal venous clot -Exam not c/w cellulitis, no leukocytosis, chronicity of pain is >1m, no antibiotics -c/f clot, will continue therapeutic dosing eliquis that was started by nephrology -Unfortunately the LE doppler venous US here does not go below the popliteals Acute on chronic HAYDEN, anemia of chronic disease -s/p 4u pRBCs, with good effect, checking daily CBC -Occult neg -No s/s of bleeding -Prior iron studies in 12/2019 showed low iron, now Fe 26, ferritin 342 DM type I -BS 85 -F/u lipid panel, repeat HbA1c -Change Lantus 10u BID to daily dosing only because he has low fasting AM sugars, ISS, AC/HS FS, consistent carb diet Situs inversus totalis -Stable Asthma -Stable on RA, not in exacerbation -Albuterol PRN Soft tissue mass on CXR -F/u CT chest without contrast DVT px -eliquis 5 BID DISPOSITION: Admitted under inpatient status to PCU. Nephrology consulted. When medically improved plan is discharge back to [facility]. VS,Fishbone, I+O VS, Fishbone, I+O Laboratory Tests 10/25/20 19:54 10/26/20 04:41 Vital Signs Date Time Temp Pulse Resp B/P (MAP) Pulse Ox O2 Delivery O2 Flow Rate FiO2 10/26/20 08:14 89 161/88 10/26/20 03:48 99.2 17 99 Room Air I&O- Last 24 Hours up to 6 AM 10/26/20 06:00 Intake Total 2240 ml Output Total 2925 ml Balance -685 ml DAVID JOYNER MD Oct 26, 2020 08:45
--- NOTE | 2020-10-26 13:11 | IPN ---
PROGRESS NOTE DATE: 10/26/2020 SUBJECTIVE: The patient is seen and examined at the bedside today morning. He is afebrile and hemodynamically stable. He reports his right calf pain is slightly better today as compared with yesterday. He was given one dose of antibiotic and he was also started on Eliquis yesterday. There is no improvement in the renal function. Creatinine has been above 6 for the last two days. His hemoglobin is stable after a total of four units of PRBC transfusion. Edema is getting better and the patient is tolerating the diuretics well. I discussed the possibility of hemodialysis with the patient and he is refusing it at this time. OBJECTIVE: VITAL SIGNS: Temperature is 98.5 degrees Fahrenheit, blood pressure 166/98, pulse 89, respiratory rate 18, saturating 97% on room air. INTAKE AND OUTPUT: Urine output recorded as 2.9 liters yesterday, 2 liters so far today since overnight. Weight on the bed scale is 104.4 kg. GENERAL: The patient is awake, alert, and oriented x3. Lying in bed in no apparent distress. HEAD/NECK: Extraocular muscles intact. Pupils equally round and reactive to light. Mucous membranes are moist. Neck is supple. There is no JVD. CARDIOVASCULAR: S1, S2. Regular rate. 1+ edema of the bilateral lower extremities. RESPIRATORY: Chest is clear to auscultation bilaterally. Bilaterally currently no rales or rhonchi. ABDOMEN: Soft with positive bowel sounds, soft, and nontender with no organomegaly. MUSCULOSKELETAL: No clubbing or cyanosis. Pulses are 2+. He has mild tenderness to deep palpation in the right calf. 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 Power is 5/5 in all extremities. LABORATORY DATA: CBC showed a WBC of 10, hemoglobin 8.5, platelets 241,000. BMP showed sodium 140, potassium 3.9, chloride 111, bicarb 20, BUN 57, creatinine 6.7. Calcium 8.1, phosphorus is 6, AST 24, ALT 20, alkaline phosphatase 134, albumin 2.3. CURRENT INPATIENT MEDICATIONS: The patient's medications were all reviewed by myself. He was started on Aranesp 200 mcg subcutaneous once a week and one dose was given today. The Eliquis dose was increased to 5 mg p.o. twice a day. No other significant change in the medications today as compared with yesterday. ASSESSMENT AND PLAN: 1. Acute renal failure superimposed on chronic kidney disease. The patient's renal function did not improve much. His creatinine is still above 6. The patient is not uremic at this time. He is responding well to the diuretics. Although his GFR is 12, he is refusing dialysis at this time. Maximum medical optimization will be done from a nephrology standpoint. 2. Anemia and end-stage renal disease. The patient was given four units of packed red blood cells (PRBC) transfusion, which should adequately give him iron. He has been started on Aranesp and first dose was given today morning. 3. 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 The patient has hypophosphatemia. He has been started on Renvela with meals. The dose will be increased to 1600 mg p.o. with meals. 4. Right calf tenderness with possibility of venous thrombosis. Eliquis dose was increased to 5 mg p.o. twice a day. Antibiotic was stopped by the medical team. 5. Hypertension. Continue current dose of amlodipine and carvedilol. I am going to start the patient on hydralazine as well to control his blood pressures better. 6. Secondary hyperparathyroidism. Continue current dose of Calcitriol three times a week. 7. Metabolic acidosis. The patient has a normal anion gap for metabolic acidosis. No need for bicarb administration at this time. 8. Insulin-dependent diabetes. The patient is requiring very small doses of insulin Levemir and sliding scale. Glucose levels are acceptable.
[2020-10-26] MEDS: **hydrALAZINE HCL** 25 MG TAB PO SCH ×2 (14:11→21:00)
[2020-10-26] MEDS: ATORVASTATIN 20 MG TAB PO SCH (20:52)
[2020-10-27] VITALS: BP 170/99
[2020-10-27 04:00] VITALS: BP 172/98
[2020-10-27] MEDS: ACETAMINOPHEN TAB 650MG DOSE (2X325MG) PO PRN ×2 (04:08→11:09)
[2020-10-27] MEDS: **hydrALAZINE HCL** 25 MG TAB PO SCH (04:09)
[2020-10-27] MEDS: SLF 3 ML SYR IV SCH (04:54)
[2020-10-27 05:50] LABS: HEMATOCRIT 28.5 % (42.0-52.0); HEMOGLOBIN 9.4 g/dl (13.5-17.5); MEAN CORPUSCULAR HEMOGLOBIN 29.2 pg (27.0-33.0); MEAN CORPUSCULAR VOLUME 88.5 fl (80.0-96.0); PLATELET COUNT, AUTOMATED 272 10^3/uL (150-450); RED BLOOD COUNT 3.22 10^6/uL (4.30-6.10); WHITE BLOOD COUNT 11.3 10^3/uL (4.0-10.0)
[2020-10-27 06:08] LABS: ALBUMIN 2.5 GM/DL (3.2-5.2); BILIRUBIN,TOTAL 0.2 MG/DL (0.2-1.0); CALCIUM LEVEL 8.6 MG/DL (8.5-10.1); CREATININE FOR GFR 7.11 MG/DL (0.70-1.30); GLOMERULAR FILTRATION RATE 11.9 (>60); POTASSIUM SERUM 4.1 MEQ/L (3.5-5.1); TOTAL PROTEIN 7.5 GM/DL (6.4-8.2)
[2020-10-27 08:00] VITALS: BP 160/90
[2020-10-27] MEDS: LEVEMIR (INSULIN DETEMIR) 1 UNITS/0.01ML SC SCH (08:26)
[2020-10-27] MEDS: APIXABAN 5 MG TAB (ELIQUIS) PO SCH (08:27)
[2020-10-27] MEDS: (RENVELA) SEVELAMER **CARBONate** 800 MG TAB PO SCH ×2 (08:27→12:22)
[2020-10-27] MEDS: HumaLOG INSULIN (NovoLOG) PER UNIT SC SCH ×2 (08:27→12:00)
[2020-10-27 08:29] VITALS: BP 160/90
[2020-10-27] MEDS: CARVedilol 12.5 MG TAB PO SCH (08:29)
[2020-10-27] MEDS ORDERED: TORSEMIDE 20 MG TAB PO SCH (11:30)
[2020-10-27] MEDS ORDERED: BICITRA 30ML SOLN UDC PO SCH (11:30)
[2020-10-27] MEDS ORDERED: CEPHALEXIN 500 MG CAP PO SCH (11:30)
[2020-10-27] MEDS ORDERED: RENV2TAB PO (11:57)
[2020-10-27] MEDS ORDERED: ELIQ5TAB PO (11:57)
[2020-10-27] MEDS ORDERED: Citric Acid/Sodium Citrate PO (11:57)
[2020-10-27] MEDS ORDERED: HYDR25TA PO (11:57)
[2020-10-27] MEDS ORDERED: CEPH500C PO (11:57)
[2020-10-27] MEDS ORDERED: ACET1TAB55 PO (11:57)
[2020-10-27] MEDS ORDERED: TORS20TA2 PO (11:57)
[2020-10-27] MEDS ORDERED: CALC1CAP31 PO (11:57)
[2020-10-27 12:00] VITALS: BP 168/100
--- NOTE | 2020-10-27 12:06 | IPNPDOC ---
Text Note Date of Service The patient was seen on 10/27/20. NOTE SUBJECTIVE: -No acute issues overnight PHYSICAL EXAMINATION: VS: see below CONSTITUTIONAL: No acute distress, resting comfortably, AAO x 3 EYES: PERRLA, EOM intact HENT, MOUTH: Normocephalic, atraumatic, moist mucous membranes, poor dental hygiene NECK: SUPPLE, no JVD, no lymphadenopathy, no carotid bruit CV: Regular rate and rhythm, S1S2 normal, no murmurs/rubs/gallops RESPIRATORY: Clear to auscultation bilaterally, no rales/rhonchi/wheezes GI: BS positive in 4 quadrants, soft, nontender, nondistended, no rebound or guarding, no organomegaly EXT: WWP with resolved extremity edema bilaterally, none at this time, has RLE calf pain without lesions or surrounding induration, warmth or erythema SKIN: Intact, no rashes, no lesions, no erythema NEUROLOGIC: Cranial Nerves II-XII are intact, no focal deficits PSYCHIATRIC: Mood and affect are normal LABORATORY DATA: WBC 11.3 Hgb 9.4 Platelets 272 Na 138 K 4.1 Cr 7.11 IMAGING: CXR: Soft tissue swelling in the paravertebral soft tissues adjacent to the lower thoracic spine. Question hiatal hernia or other etiology. Borderline heart size. Slight pleural thickening and fissural fluid on the left. Known situs inversus. Consider CT study of the chest. US b/l lower ext: No DVT TTE: 1. Study is of acceptable technical quality considering the patient's body habitus and dextrocardia. Underlying sinus rhythm. 2. Normal LV size with moderate left ventricular hypertrophy and normal LV systolic function. Probably normal diastolic function. 3. No significant valvular disease. 4. Likely normal central venous pressure and moderate pulmonary hypertension. 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 PLAN: SOB likely 2/2 nephrosis with third spacing -No prior hx of cardiac disease or CHF but +3 pitting edema in lower ext, BNP >8K. 2/2 low oncotic pressure 2/2 LEO with nephrotic range proteinuria -Trop neg -CXR above -TTE with normal systolic and diastolic function. Has some noted pulm HTN -s/p 4 units of blood, with nephrology dosing loop diuretic -Continue holding home ARB -2L/24h fluid restriction -Daily wt, low salt diet, monitor I&O's closely, tele Hypertensive urgency likely 2/2 to fluid overload from worsening renal failure: improved -nephrology giving IV lasix PRN, none today -C/w BB, CCB and hydral 25Q8H ESSENCE on CKD Stage 3-4 likely multifactorial to home medication, cannot r/o 2/2 to prior existing minimal change disease/nephrotic syndrome -Cr baseline 2-3.3, currently 7.16 -Holding home ARB, HCTZ -Nephrology dosing IV lasix PRN -Monitor I&O's closely, U/O -Nephrology consulted Lower extremity swelling likely 2/2 nephrotic range proteinuria with third spacing with worsening ESSENCE on CKD Stage 3-4: improving -ongoing diuresis per nephrology PRN, none today -Urine protein ordered. May need steroids etc if proteinuria is severe. Nephrology onboard R calf pain: possibly has post-popliteal venous clot -Exam not c/w cellulitis, chronicity of pain is >1m, no antibiotics -c/f clot, will continue therapeutic dosing eliquis that was started by nephrology -Unfortunately the LE doppler venous US here does not go below the popliteals Acute on chronic HAYDEN, anemia of chronic disease -s/p 4u pRBCs, with good effect, checking daily CBC -Occult neg -No s/s of bleeding -Prior iron studies in 12/2019 showed low iron, now Fe 26, ferritin 342 DM type I -BS 85 -F/u lipid panel, repeat HbA1c -Change Lantus 10u BID to daily dosing only because he has low fasting AM sugars, ISS, AC/HS FS, consistent carb diet Situs inversus totalis -Stable Asthma -Stable on RA, not in exacerbation -Albuterol PRN Soft tissue mass on CXR -F/u CT chest without contrast DVT px -eliquis 5 BID DISPOSITION: Admitted under inpatient status to PCU. Nephrology consulted. Now that he is euvolemic and is making robust urine and declines transition to HD at this time with a GFR of 12 and wants to seek a second opinion, we will discharge him back to the intermediate and he can continue conversation with nephrology in the outpatient setting. VS,Fishbone, I+O VS, Fishbone, I+O Laboratory Tests 10/27/20 05:11 Vital Signs Date Time Temp Pulse Resp B/P (MAP) Pulse Ox O2 Delivery O2 Flow Rate FiO2 10/27/20 08:29 93 160/90 10/27/20 08:00 98.8 18 98 Room Air I&O- Last 24 Hours up to 6 AM 10/27/20 06:00 Intake Total 2160 ml Output Total 2425 ml Balance -265 ml DAVID JOYNER MD Oct 27, 2020 09:00
--- NOTE | 2020-10-27 13:00 | DS.PDOC ---
Discharge Summary General Date of Admission Oct 24, 2020 at 12:04 Date of Discharge 10/27/2020 Attending Physician: DAVID JOYNER MD Discharge Summary PROCEDURES PERFORMED DURING STAY: None ADMITTING DIAGNOSES: ESSENCE Anemia suspected heart failure DISCHARGE DIAGNOSES: ESSENCE on CKD History of likely minimal change disease and diabetic nephropathy with nephrotic syndrome Acute on chronic anemia HAYDEN Hypoalbuminemia Anasarca 2/2 nephrosis DM type I Hypertensive urgency Situs inversus totalis asthma Hx of tobacco use COMPLICATIONS/CHIEF COMPLAINT: Anemia,Arf,Heart Failure. HISTORY OF PRESENT ILLNESS: 30-year-old M with type 1 diabetes, history of nephrotic syndrome, minimal change disease, hypertension, CKD stage III4, situs inversus totalis, asthma, chronic anemia, tobacco use who [facility] complaining of increased redness of breath and bilateral lower extremity swelling. The patient has been treated in the past for minimal change disease and nephrotic syndrome with steroids as inpatient and outpatient as well. He decided to stop going to nephrology as outpatient due to disagreement with treatment. Since May 2020 the patient noticed increased bilateral lower extremity swelling along with increased shortness of breath especially with exertion. One week ago the patient was started with compression stockings and he stated to have increased right calf pain at that time. He also noticed weight gain along with increased swelling and shortness of breath. He denied decreased urine output, dysuria, oliguria, recent illnesses, recent sick contacts, chest pain, fevers, chills, lightheadedness, dizziness, headaches, decreased appetite. He does not have a prior cardiac history. Due to the symptoms above the patient came to the ER for further evaluation. HOSPITAL COURSE In ER, VS were: BP 177-240/98-140, 91, 20, 100% on RA. CXR showed a soft tissue swelling in the paravertebral soft tissues adjacent to the lower thoracic spine,? hiatal hernia or other etiology, borderline heart size, pleural thickening and fissural fluid on the left, known situs inversus, and a follow up CT study of the chest showed a hiatal hernia. US lower ext b/l was neg for DVT. H&H was 6.4/20.1 (baseline hemoglobin 89), occult blood was negative, creatinine was 7.160 (BL Cr 2-3.3), BUNs 57, CK 1642, troponin negative, BNP 8358. ECG showed normal sinus rhythm, atypical ECG similar to prior on file from 12/29/2019. On exam the patient had +3 pitting edema in the lower extremities, complained of right calf pain with squeezing; however ultrasound was ultimately negative though it should be noted that it does not evaluate for clots below the popliteals. Nephrology was consulted and he underwent diuresis with IV lasix and he was transfused a total of 4u of blood. His volume status improved tremendously with robust urine output but his renal function essentially did not improve. He was started on eliquis for high risk for clot especially with the R calf pain c/f a clot and significant proteinuria. He was also started on keflex for potential cellulitis involving the R calf given the ongoing pain and firmness with unreliable examination and will complete an empiric 7d course. In the meantime, we had a lengthy discussion with nephrology given his stage 5 kidney disease suggestive of hemodialysis because his GFR is only 12%. He declined at this time and would like to pursue a second opinion before starting HD and will therefore now be discharged with PCP and nephrology follow up as the conversation continues. He will be discharged on daily torsemide and renal supportive medications as noted below, as well as eliquis given his risk for clot formation and suspected clot in R calf. DISCHARGE MEDICATIONS: Please see below. ALLERGIES: Please see below. PHYSICAL EXAMINATION ON DISCHARGE: VITAL SIGNS: Please see below. CONSTITUTIONAL: No acute distress, resting comfortably, AAO x 3 EYES: PERRLA, EOM intact HENT, MOUTH: Normocephalic, atraumatic, moist mucous membranes, poor dental hygiene NECK: SUPPLE, no JVD, no lymphadenopathy, no carotid bruit CV: Regular rate and rhythm, S1S2 normal, no murmurs/rubs/gallops RESPIRATORY: Clear to auscultation bilaterally, no rales/rhonchi/wheezes GI: BS positive in 4 quadrants, soft, nontender, nondistended, no rebound or guarding, no organomegaly EXT: WWP with resolved extremity edema bilaterally, none at this time, has RLE calf pain without lesions or surrounding induration, warmth or erythema SKIN: Intact, no rashes, no lesions, no erythema NEUROLOGIC: Cranial Nerves II-XII are intact, no focal deficits PSYCHIATRIC: Mood and affect are normal LABORATORY DATA: Please see below. IMAGING: CXR: Patient has known situs inversus. The lungs are symmetrically aerated and clear. Pleural angles are sharp. The heart is more prominent than on the prior study, borderline in size.. There is a sliver of fissural fluid in the minor fissure on the left. There is soft tissue fullness in the paravertebral soft tissues of the lower thoracic spine just above the diaphragms of uncertain significance.. The azygos vein is enlarged similar to the prior study. A prior CT study from 2017 showed adenopathy. There is a little pleural thickening on the left. IMPRESSION: Soft tissue swelling in the paravertebral soft tissues adjacent to the lower thoracic spine. Question hiatal hernia or other etiology. Borderline heart size. Slight pleural thickening and fissural fluid on the left. Known situs inversus. Consider CT study of the chest.. LE doppler venous US: Real time compression and duplex Doppler interrogation of the bilateral lower extremity deep venous system is performed. FINDINGS: Bilaterally, the common femoral, superficial femoral and popliteal veins are fully compressible with transducer pressure and demonstrate normal spontaneous and phasic flow, without evidence of deep venous thrombosis. IMPRESSION: No evidence of deep venous thrombosis of the bilateral lower extremity femoral popliteal venous system. CT chest w/o contrast: There is known situs inversus. There are interstitial fibrotic changes in both lung bases. There is mild pleural based density inferiorly and predominantly medially bilaterally, left greater than right. On the prior CT there was bibasilar consolidative infiltrate and mild left pleural fluid. I suspect the current findings represent mild pleural and parenchymal scarring bilaterally with possibly a small amount of loculated medial left pleural fluid. There is mild diffuse thickening along the pleural fissures. There is a small hiatal hernia. There is no gross adenopathy in the mediastinum. There is no axillary adenopathy. The heart is not significantly enlarged. There is no pericardial effusion. There is residual thymic tissue in the anterior mediastinum. There is a large azygous vein. The visualized upper abdominal structures are grossly unchanged. IMPRESSION: Mild pleural and parenchymal densities bilaterally in the lung bases are suspected to represent pleural and parenchymal scarring as discussed above, left greater than right. There may be a small amount of loculated left pleural fluid medially. There is a small hiatal hernia.. TTE: FINDINGS: This study is of fair technical quality. The patient is in sinus rhythm. He has dextrocardia, so the imaging was performed on the right side of the chest. Left ventricle is normal size. There is moderate left ventricular hypertrophy and normal LV systolic function. Estimated LVF is approximately 60% to 65%. The right ventricle has normal size and systolic function. The left atrium is mildlyenlarged. The right atrium appears normal. Aortic, mitral, tricuspid, and pulmonic valves were all reasonably well seen and appeared normal. No significant pericardial effusion is noted. Inferior vena cava is of normal size and appropriately collapses with inspiration. Aortic root is normal. Aortic archand abdominal aorta were not well seen. Doppler interrogation reveals competent aortic valve. There is mild mitral and mild tricuspid insufficiency. Calculated pulmonary artery pressure is in the low40s corresponding to moderate pulmonary hypertension. Trace pulmonic insufficiency is seen. Evaluation of diastolic function was inconclusive because tissue Doppler velocities of mitral annulus were not measured, but based on mitral inflow pattern, I suspect normal diastolic function. CONCLUSIONS: 1. Study is of acceptable technical quality considering the patient's body habitus and dextrocardia. Underlying sinus rhythm. 2. Normal LV size with moderate left ventricular hypertrophy and normal LV systolic function. Probably normal diastolic function. 3. No significant valvular disease. 4. Likely normal central venous pressure and moderate pulmonary hypertension. PROGNOSIS: Good if adherent to meds and medical recommendations ACTIVITY: As tolerated DIET: consistent carb, 2g sodium, 2L/24h fluids DISCHARGE PLAN: Back to correctional facility DISPOSITION:Correctional facility DISCHARGE INSTRUCTIONS: Please take meds as prescribed and do follow up with nephrology. ITEMS TO FOLLOWUP ON ON OUTPATIENT: Progressive CKD5 Nephrosis Glycemic control DISCHARGE CONDITION: Stable TIME SPENT ON DISCHARGE: 46 minutes. Vital Signs/I&Os Vital Signs Date Time Temp Pulse Resp B/P (MAP) Pulse Ox O2 Delivery O2 Flow Rate FiO2 10/27/20 08:29 93 160/90 10/27/20 08:00 98.8 18 98 Room Air I&O- Last 24 Hours up to 6 AM0 10/27/20 06:00 Intake Total 2160 ml Output Total 2425 ml Balance -265 ml Laboratory Data Labs 24H Laboratory Tests 2 10/26/20 17:24: Bedside Glucose (Misc Panel) 166H 10/26/20 20:00: Bedside Glucose (Misc Panel) 187H 10/27/20 05:11: Nucleated Red Blood Cells % (auto) 0.0, Anion Gap 13, Glomerular Filtration Rate 11.9L, Calcium Level 8.6, Total Bilirubin 0.2, Aspartate Amino Transf (AST/SGOT) 19, Alanine Aminotransferase (ALT/SGPT) 21, Alkaline Phosphatase 138H, Total Protein 7.5, Albumin 2.5L, Albumin/Globulin Ratio 0.5 10/27/20 11:58: Bedside Glucose (Misc Panel) 105 CBC/BMP Laboratory Tests 10/27/20 05:11 FSBS Laboratory Tests Test 10/26/20 17:24 10/26/20 20:00 10/27/20 11:58 Range/Units Bedside Glucose (Misc Panel) 166 187 105 70-105 MG/DL Microbiology Microbiology 10/24/20 Blood Culture - Preliminary, Resulted No Growth after 72 hours. All specime... 10/24/20 Blood Culture - Preliminary, Resulted No Growth after 72 hours. All specime... Discharge Medications Scheduled Amlodipine Besylate (Amlodipine Besylate) 10 Mg Tablet, 10 MG PO DAILY, (Reported) Apixaban (Eliquis) 5 Mg Tablet, 5 MG PO BID Atorvastatin Calcium (Atorvastatin Calcium) 20 Mg Tablet, 20 MG PO QHS, (Reported) Calcitriol (Calcitriol) 0.25 Mcg Capsule, 0.25 MCG PO MoWeFr@0900 Carvedilol (Carvedilol) 12.5 Mg Tablet, 12.5 MG PO BID, (Reported) Cephalexin (Cephalexin) 500 Mg Capsule, 500 MG PO BID Hydralazine HCl (Hydralazine HCl) 25 Mg Tablet, 25 MG PO Q8H Insulin Glargine (Lantus) 100 Unit/1 Ml Vial, 20 UNIT SC QHS, (Reported) Insulin Glargine,Hum.rec.anlog (Lantus Solostar) 100 Unit/1 Ml Insuln.pen, 36 UNITS SC QAM, (Reported) PER RN AT CORRECTIONAL FACILITY, HAS ONLY BEEN USING 20 UNITS AT BEDTIME Sevelamer Carbonate (Renvela) 800 Mg Tablet, 1,600 MG PO WM Torsemide (Torsemide) 20 Mg Tablet, 20 MG PO DAILY [Citric Acid/Sodium Citrate] 30 ML SOLN, 15 ML PO BID Scheduled PRN Acetaminophen (Acetaminophen) 325 Mg Tablet, 650 MG PO Q6HP PRN for PAIN / FEVER Albuterol Sulfate (Ventolin Hfa) 18 Gm Hfa.aer.ad, 2 PUFF INH QID PRN for SHORTNESS OF BREATH, (Reported) Allergies Coded Allergies: No Known Drug Allergies (Verified Allergy, Unknown, 12/29/19) SEASONAL ALLERGIES (Verified Allergy, Unknown, 09/01/18) DAVID JOYNER MD Oct 27, 2020 12:54
--- NOTE | 2020-10-27 13:57 | IPN ---
[facility] PROGRESS NOTE DATE: 10/26/2020 SUBJECTIVE: Patient was seen and examined at the bedside today morning. He is afebrile, hemodynamically stable. He reports persistent 7 x 10 pain in the right calf. He is otherwise autodiuresing without any diuretic. There is no significant improvement in the renal function. Creatinine is 7.1 today. I talked to him again about dialysis and he does not want any dialysis at this time. He wants a second opinion from another pharmacognosist. OBJECTIVE: VITAL SIGNS: Temperature 98.1 degrees Fahrenheit, blood pressure 168/100, pulse 88, respiratory rate 18, saturating 97% on room air. INTAKE AND OUTPUT: Urine output recorded as 3.4 liters yesterday, 12.1 mL so far today. Weight in the bed scale is 104.6. PHYSICAL EXAMINATION: GENERAL: Patient is awake, alert, oriented times three, laying in bed, no apparent distress. HEAD AND NECK EXAM: Extraocular muscles intact. Pupils equally round and reactive to light. Mucous membranes are moist. Neck is supple. There is no jugular venous distention (JVD). CARDIOVASCULAR: S1, S2. Regular rate. Trace edema of the bilateral lower extremities. RESPIRATORY: Chest is clear to auscultation bilaterally. Bilateral equal air entry. No rales or rhonchi. ABDOMEN: Soft. Positive bowel sounds. Nontender. No organomegaly. MUSCULOSKELETAL: Patient has tenderness and swelling in the right calf. CENTRAL NERVOUS SYSTEM (AIR QUALITY TECHNICIAN): No focal deficits. Power is 5/5 in all extremities. LABORATORY REVIEW: CBC showed WBC 11.3, hemoglobin 9.4, platelets 272. BMP showed sodium 138, potassium 4.1, chloride 108, bicarbonate 17, BUN 63, creatinine 7.1, calcium 8.6. AST 19, ALT 21, alkaline phosphatase 138, albumin 2.5. CURRENT INPATIENT MEDICATIONS: Patient's medications were all reviewed by myself. I have started him on torsemide 20 mg by mouth daily. I have restarted the patient on Keflex 500 mg by mouth twice a day and he has been started on Bicitra 15 mL by mouth twice a day. No other significant change in the medications today. ASSESSMENT AND PLAN: 1. Chronic kidney disease stage V. Patient has progressed to chronic kidney disease (CKD) stage V. His GFR is around 12. I offered dialysis again; however, he is refusing dialysis. He does not have any significant volume overload, no significant symptoms of uremia. At this time, he will be medically optimized and whenever patient agrees to start dialysis, he will need placement of arteriovenous (AV) fistula and dialysis catheter. 2. Anemia in end-stage renal disease. Patient got 4 units of blood. He has been started on Aranesp. Hemoglobin level is stable and improving. 3. Chronic kidney disease/mineral bone disease. Continue Renvela 1600 mg by mouth with meals. 4. Right calf tenderness and possible cellulitis. Patient is already on Eliquis. He reports his pain is not getting better. He has been started on Keflex 500 mg by mouth twice a day for one week. 5. Hypertension. Continue amlodipine, Coreg and hydralazine. Blood pressure levels are still high. However, I am hopeful that with further diuresis his blood pressures should improve. No use of angiotensin converting enzyme (SHAHRAM) or angiotensin receptor maribel (ARB) at this time. 6. Secondary hyperparathyroidism. Continue calcitriol. 7. Metabolic acidosis. Patient has been started on Bicitra 15 mL by mouth twice a day. 8. Insulin dependent diabetes. Levemir and insulin sliding scale is as per medical team.
== END 2020-10-27 14:10 | DRG 469 ==
LOC: M ED 09:02 → M ED INP 12:04 → ENRESERV 12:17 → M PCU 14:50
PROVIDERS: ADMIT Internal Medicine; ATTEND Internal Medicine
PROC: 30233N1 Transfusion of Nonautologous Red Blood Cells into Peripheral Vein, Percutaneous Approach (ICD-10-PCS; principal; 2020-10-24)
DX: N17.9 Acute kidney failure, unspecified (principal); Q89.3 Situs inversus; E87.2 Acidosis; E10.21 Type 1 diabetes mellitus with diabetic nephropathy; E83.39 Other disorders of phosphorus metabolism; D50.9 Iron deficiency anemia, unspecified; I16.0 Hypertensive urgency; J45.909 Unspecified asthma, uncomplicated; Z87.891 Personal history of nicotine dependence; Z79.899 Other long term (current) drug therapy; Z79.4 Long term (current) use of insulin; R22.2 Localized swelling, mass and lump, trunk; N18.4 Chronic kidney disease, stage 4 (severe); N25.81 Secondary hyperparathyroidism of renal origin